=== PATIENT | male | born 1965 | race Caucasian/White ===

== ENCOUNTER 2024-01-27 17:46 | Emergency (ER) | payer BC, SELFPAY ==
[2024-01-27] VITALS (7 sets, daily range): BP systolic 127–179; BP diastolic 85–110; PULSE 78–106; RESP 16–20; TEMP 36.6–36.7; O2SAT 95–99; BMI 22.5
--- NOTE | 2024-01-27 17:51 | CT_ITS ---
PROCEDURE INFORMATION: Exam: CT Neck With Contrast Exam date and time: 01/27/2024 7:06 PM Age: 58 years old Clinical indication: Other: Tongue swelling; Additional info: New tongue swelling/subungual swelling TECHNIQUE: Imaging protocol: Computed tomography of the neck with contrast. Radiation optimization: All CT scans at this facility use at least one of these dose optimization techniques: automated exposure control; mA and/or kV adjustment per patient size (includes targeted exams where dose is matched to clinical indication); or iterative reconstruction. Contrast material: ISOVUE; Contrast volume: 75 ml; Contrast route: IV; COMPARISON: No relevant prior studies available. FINDINGS: Paranasal sinuses: No air-fluid levels. Salivary glands: Unremarkable. Pharynx: Partially imaged oropharynx demonstrates post-surgical changes compatible with partial tongue resection and autologous fat graft replacement. No evidence of soft tissue hematoma or focal fluid collection in the partially visualized surgical bed. Prevertebral and retropharyngeal spaces: Unremarkable. Larynx: Unremarkable. Thyroid: Unremarkable. Trachea: Tracheostomy speaking valve device in place and appears appropriately positioned. Lower trachea is widely patent and upper trachea is surgically absent. Lungs: No emergent findings or suspicious mass/lesions in the visulized upper thorax. Lymph nodes: Post-operative changes the neck extensive cervical lymph node dissection. No pathologically enlarged lymph nodes by imaging criteria. Bones/joints: No evidence of acute osseous abnormality. 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 Soft tissues: Focal soft tissue defect in the submental subcutaneous fat and platysma muscle with full-thickness open wound approaching the anterior belly of the digastric muscles. No evidence of significant surrounding soft tissue edema. No hematoma or focal fluid collection. No interstitial subcutaneous emphysema to suggest necrotizing soft tissue infection. IMPRESSION: 1. Partially imaged oropharynx demonstrates post-surgical changes compatible with partial tongue resection and autologous fat graft replacement. No evidence of soft tissue hematoma or focal fluid collection in the partially visualized surgical bed. 2. Focal soft tissue defect in the submental subcutaneous fat and platysma muscle with full-thickness open wound approaching the anterior belly of the digastric muscles. No evidence of hematoma, soft tissue abscess or necrotizing soft tissue infection. 3. Additional non-acute ancillary findings are detailed above.
--- NOTE | 2024-01-27 17:53 | CT_ITS ---
PROCEDURE INFORMATION: Exam: CTA Chest With Contrast Exam date and time: 01/27/2024 7:09 PM Age: 58 years old Clinical indication: Pain; Other: Cp; Additional info: Chest pain, h/o laryngeal cancer TECHNIQUE: Imaging protocol: Computed tomographic angiography of the chest with contrast. Exam focused on the arteries. 3D rendering (Not supervised by radiologist): MIP and/or 3D reconstructed images were created by the technologist. Radiation optimization: All CT scans at this facility use at least one of these dose optimization techniques: automated exposure control; mA and/or kV adjustment per patient size (includes targeted exams where dose is matched to clinical indication); or iterative reconstruction. Contrast material: ISOVUE 370; Contrast volume: 70 ml; Contrast route: INTRAVENOUS (IV); COMPARISON: CT SOFT TISSUE NECK W CON 01/27/2024 7:06 PM FINDINGS: Pulmonary arteries: Normal. No pulmonary emboli. Aorta: Minimal thoracic aortic atherosclerotic disease without aneurysm or dissection. Lungs: Mild/moderate centrilobular emphysema. Multiple bilateral calcified granulomas. Mild bronchial wall thickening with mild mucoid debris in the right mainstem bronchus. Pleural spaces: Unremarkable. No pneumothorax. No pleural effusion. Heart: Unremarkable. No cardiomegaly. No pericardial effusion. Lymph nodes: Unremarkable. No enlarged lymph nodes. Diaphragm: Tiny hiatal hernia. Liver: Hepatic steatosis. Gallbladder and biliary ducts: Mildly dilated common bile duct measuring up to 1.4 cm in diameter. Pancreas: Linear calcification along the posterior margin of the pancreatic tail could be the sequela of prior pancreatitis. Kidneys: 1.0 cm cyst in the upper pole of the left kidney. Bones/joints: Mild thoracic spine dextroscoliosis with mild multilevel degenerative disc disease. Soft tissues: Unremarkable. IMPRESSION: 1. No evidence of a pulmonary embolism. 2. Mild bronchial wall thickening and mild mucoid debris in the right mainstem bronchus is likely due to bronchitis. 3. Multiple pulmonary calcified granulomas. 4. Mild/moderate emphysema. 5. Mildly dilated common bile duct measuring up to 1.4 cm in diameter. Correlate with bilirubin levels and consider follow-up nonemergent MRCP. COMMENTS: 1. Consistent with the [employer]'s Incidental Findings Committee white paper (J Am Wanda Radiol 2018): Any incidental renal lesion less than 1 cm or classified as too small to characterize, or any incidental cystic renal lesion characterized as simple-appearing, is likely benign. No follow-up imaging is recommended for these lesions per consensus recommendations based on imaging criteria. 2. The presence of pulmonary emphysema on CT is an independent risk factor for lung cancer. In the absence of a history or active diagnosis of lung cancer, it is recommended that this patient with emphysema be evaluated for enrollment in a low dose CT lung cancer screening program.
--- NOTE | 2024-01-27 17:56 | ED_ITS ---
Discharge Plan Disposition Patient Disposition: Xfer Short-Term Hosp Condition: Good Prescriptions Prescriptions: No Action levothyroxine 137 mcg tablet 137 mcg PO AM clonazepam 0.5 mg tablet 0.5 mg PO BID Referrals Follow up/Referrals: Tyler Hernandez APRN [Primary Care Provider] - See instructions Clinical Impressions Clinical Impression: Tongue swelling, Acute oral pain, Hyponatremia, Need for durable feeding access, Bronchitis Print Language Print Language: [place] Discharge ED Provider: Ирина Maravilla General Adult HPI General Chief complaint: Recheck/Abnormal Lab/Rx Stated complaint: swollen tounge Time Seen by Provider: 01/27/24 17:46 Mode of Arrival: EMS Source of Information: Patient Limitations: No Limitations Description of Symptoms (Recalled from ER Triage Doc. by RN): Patient with history of tongue cancer and approx 7 days ago his tongue began to swell and he noticed a swollen lump on the right side of his jaw. 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 Of note, the patient had segmental neck dissection 12/31/2023 with ENT at which demonstrated metastatic node. He notes that since then, he had been doing okay up until around a week ago when he had increasing pain and swelling of his neck, right jaw, right tongue. He has not been able to eat or drink for several days secondary to the pain and swelling. He also notes he is having a little bit of chest pain and shortness of breath. No other concerns noted. He is not currently on chemo or radiation. Related Data Home Medications ?Medication ?Instructions ?Recorded ?Confirmed clonazepam 0.5 mg tablet 0.5 mg PO BID 01/27/24 01/27/24 levothyroxine 137 mcg tablet 137 mcg PO AM 01/27/24 01/27/24 Allergies Allergy/AdvReac Type Severity Reaction Status Date / Time gabapentin Allergy Unknown Verified 01/27/24 17:51 allergy reaction tramadol Allergy Unknown Verified 01/27/24 17:51 allergy reaction PFSH PFSH Disclaimer: The information contained in this section may have been updated after the patient was seen, as this information can be updated by other users. Social History (Updated 01/27/24 @ 19:35 by Chema Guzman RN) Smoking Status: Former smoker alcohol intake: former current occupational status: disabled ROS Obtained: Yes All systems reviewed & no additional complaints except as documented Physical Exam General General appearance: alert and in no apparent distress Head Head exam: atraumatic and normocephalic Eye Eye exam: Present normal appearance, PERRL and EOMI ENT ENT exam: Present mucous membranes moist, normal external ear exam and other (Postoperative changes of the oral cavity as well as significant swelling of the right side of the tongue, subungual region, and inflammation of right submandibular nodes. No drooling, trismus, or stridor.) Neck Neck exam: Present full ROM, trachea midline and other (Submental wound without surrounding erythema or warmth. No purulence. Tracheostomy in place); Absent tenderness Expanded Neck Exam Neck image: 2 1. Chest Chest inspection: Present normal inspection and symmetric chest wall rise; Absent tenderness Respiratory Respiratory exam: Present normal lung sounds bilaterally; Absent respiratory distress, wheezes, stridor or accessory muscle use Cardiovascular Cardiovascular exam: Present regular rate and normal rhythm Abdominal Exam Abdominal exam: Present soft; Absent distention, tenderness or guarding Extremities Exam Extremities exam: Present normal inspection, full ROM and normal capillary refill; Absent tenderness or edema Back Exam Back exam: Present normal inspection and full ROM; Absent tenderness Neurological Exam Neurological exam: Present alert, oriented X3, CN II-XII intact and normal gait; Absent motor sensory deficit Psychiatric Psychiatric exam: Present normal affect and normal mood Skin Skin exam: Present warm and dry Medical Decision Making Medical Records Medical records reviewed: Yes I reviewed the patient's medical records. Screening: Per USPSTF and CDC recommendations, given the prevalence of disease in our region, it is our hospital?s policy to screen for HIV and viral Hepatitis for all patients aged 18 and over and those with ongoing risk factors. Ezra Inquiry Pt receiving controlled substance: No Vital Signs: 01/27/24 17:46 01/27/24 18:00 01/27/24 18:51 Temperature 98.1 F Temperature Source Oral Pulse Rate 96 H Pulse Rate [Radial] 106 H Respiratory Rate 16 Blood Pressure 179/110 H Blood Pressure [Right Arm] 158/102 H Blood Pressure Mean 127 Blood Pressure Mean [Right Arm] 120 Blood Pressure Source [Right Arm] Automatic Cuff Blood Pressure Position [Right Arm] Sitting 02 Sat by Pulse Oximetry 96 95 95 Oxygen Delivery Method Room Air Room Air Room Air 01/27/24 19:31 01/27/24 20:00 01/27/24 20:38 Temperature 98 F Temperature Source Temporal Artery Scan Pulse Rate 104 H 88 95 H Pulse Rate [Radial] Respiratory Rate 18 16 18 Blood Pressure 127/85 135/86 139/89 Blood Pressure [Right Arm] Blood Pressure Mean 104 109 102 Blood Pressure Mean [Right Arm] Blood Pressure Source [Right Arm] Blood Pressure Position [Right Arm] 02 Sat by Pulse Oximetry 99 97 97 Oxygen Delivery Method Room Air Room Air Room Air Lab Data Lab results reviewed: Yes I reviewed the patient's lab results. Lab Results 01/27/24 18:11: WBC 7.7, RBC 4.38 L, Hgb 12.9 L, Hct 39.2 L, MCV 89.4, MCH 29.5, MCHC 33.0, RDW 16.8, Plt Count 307, MPV 8.4, Neut % (Auto) 74.3, Lymph % (Auto) 14.4, [place] % (Auto) 9.6 H, Eos % (Auto) 0.7, Baso % (Auto) 1.0, Neut # (Auto) 5.7, Lymph # (Auto) 1.1, [place] # (Auto) 0.7, Eos # (Auto) 0.1, Baso # (Auto) 0.1, ESR 22 H, Sodium 130 L, Potassium 3.9, Chloride 93 L, Carbon Dioxide 31 H, Anion Gap 9.9, BUN < 2 L, Creatinine 0.60 L, Estimated Creat Clear 159, Estimated GFR 139, Est GFR ( Amer) 169, Glucose 122 H, Lactate 2.0, Calcium 8.9, Total Bilirubin 0.8, AST 106 H, ALT 37, Alkaline Phosphatase 200 H, Troponin I < 0.01, C-Reactive Protein 0.6, Total Protein 8.2, Albumin 4.1, Globulin 4.1 H, A lbumin/Globulin Ratio 1.0 L, Procalcitonin 0.067 01/27/24 20:54: Troponin I < 0.01 01/27/24 18:11 01/27/24 18:11 Orders (Tests/Meds): ED MEDICATIONS Generic Name Dose Route Start Last Admin Trade Name Jose PRN Reason Stop Dose Admin Sodium Chloride 10 ml 01/27/24 19:30 Sodium Chloride 0.9% 10ml Flush Syringe IV 01/28/24 07:30 NEEDED PRN Maintain IV Site Discontinued Medications Generic Name Dose Route Start Last Admin Trade Name Freamanuel PRN Reason Stop Dose Admin Sodium Chloride 1,000 mls @ 999 mls/hr 01/27/24 19:30 01/27/24 19:31 Sod Chlor 0.9% 1000ml Bag IV 01/27/24 20:30 999 mls/hr .Q1H1M ONE Administration Iopamidol 155 ml 01/27/24 19:23 01/27/24 19:23 Iopamidol-370 (76%);100ml Bottle IV 01/27/24 19:24 155 ml ONCE ONE Administration Sodium Chloride 10 ml 01/27/24 19:23 01/27/24 19:23 Sodium Chloride 0.9% 10ml Syr (Rad Only) IV 01/27/24 19:24 10 ml ONCE ONE Administration Sodium Chloride 50 ml 01/27/24 19:23 01/27/24 19:23 0.9 % Sodium Chloride 50 Ml Vial IV 01/27/24 19:24 50 ml ONCE ONE Administration ORDERS Category Date Time Status CT angio chest PE protocol Stat Cat Scan 01/27/24 17:[address] soft tissue neck w con Stat Cat Scan 01/27/24 17:51 Completed CRP [C-Reactive Protein] Stat Lab 01/27/24 18:11 Completed Complete Blood Count Auto Diff Stat Lab 01/27/24 18:11 Completed Comprehensive Metabolic Panel Stat Lab 01/27/24 18:11 Completed ESR [Erythrocyte Sedimentation Rate] Stat Lab 01/27/24 18:11 Completed Lactic Acid Stat Lab 01/27/24 18:11 Completed Procalcitonin Stat Lab 01/27/24 18:11 Completed Trop I [Troponin I] Stat Lab 01/27/24 18:11 Completed Troponin I Q3H Lab 01/27/24 20:54 Completed Troponin I Q3H Lab 01/28/24 00:00 Ordered Blood Culture Stat Micro 01/27/24 18:11 Received ECG Data Tracing #1: I reviewed this ECG and interpreted as documented below: Normal sinus rhythm with a ventricular rate of 89 bpm. Motion artifact degrades study. No acute ST changes concerning for ischemia noted ECG initial impression date: 01/27/24 ECG initial impression time: 18:05 Medical Decision Narrative: In summary, this patient is a 58-year-old male presenting to the Emergency Department for evaluation of increasing swelling and pain status post recent resection of lymph nodes of the right neck 12/31/2023. He has been unable to eat. Differential diagnoses considered include but are not limited to postoperative infection, cellulitis, abscess, worsening malignancy, airway compromise. Ruling out the most morbid conditions drove assessment. It should be noted patient's history includes squamous cell carcinoma of the oral cavity as well as laryngeal cancer status post total laryngectomy which is likely not at goal therapy. This complicates all aspects of care by increasing patient's risk for morbidity. I reviewed patient's past medical records and noted previous surgery endeavors at as noted in HPI. On exam, the patient is sitting upright in no acute distress. He has a submental wound without obvious purulence or surrounding erythema. He has no drooling, stridor, trismus. He does have a trach in place. He does have swelling of his right tongue and oral cavity. workup included lab evaluation to evaluate for infectious etiology as well as CT soft tissue neck and CT PE protocol. I also ordered Trope and EKG given his complaints of chest pain. Blood cultures were sent and are pending.. I independently interpreted CT scan prior to the radiologist read and noted wound to chin. No PE noted. Please see their read for final interpretation. They did not note any acute concerns for abscess or infection of the neck or oral cavity, but they did note that he has concerning findings for bronchitis. he has had increased mucus production. Labs were obtained that demonstrated hyponatremia. Bolus of IV fluids was ordered. He also has he started throughout the upper limits of normal but negative CRP, procalcitonin, no significant leukocytosis. Cultures were sent and are pending just to be on the safe side.. On reassessment, the patient remains resting comfortably in no acute distress. Vitals are reassuring on cardiac telemetry. I had interactive discussion with Dr. Murphy with ENT at who advised that he would recommend transfer there for evaluation of the wound as well as for evaluation of feeding difficulty, as the patient may need feeding tube placed potentially. Dr. Sweeney was in the transfer center call. They accepted the patient for transfer to [facility] ED for further evaluation and management. EMS transport was arranged, and the patient was transported in stable condition. Critical Care Critical Care Time Critical Care Time: No
--- NOTE | 2024-01-27 18:04 | ECG_ITS ---
APPROVED REPORT Exam: Resting ECG HR:89 bpm ECG Measurements Heart Rate 89 AXES RI 157 P 29 QRSd 100 QRS 53 QT 391 T 50 QTc 438 Conclusion SINUS RHYTHM NORMAL ECG Some motion artifact Electronically signed by : HECTOR OVIEDO, 01/27/2024 22:57:42
[2024-01-27 18:27] LABS: Basophils # 0.1 K/mm3 (0-0.2); Eosinophils # 0.1 K/mm3 (0.0-0.4); Eosinophils % 0.7 % (0.1-12.0); Hematocrit 39.2 % (42.0-52.0); Hemoglobin 12.9 g/dL (14.1-18.0); Lymphocytes # 1.1 K/mm3 (0.7-4.5); Lymphocytes % 14.4 % (10-50); Mean Corpuscular Hemoglobin 29.5 pg (27.0-31.2); Mean Corpuscular Volume 89.4 fl (80-94); Mean Platelet Volume 8.4 fl (7.4-10.4); Monocytes # 0.7 K/mm3 (0.1-1.0); Monocytes % 9.6 % (1.7-9.3); Neutrophils # 5.7 K/mm3 (1.8-7.8); Neutrophils % 74.3 % (37.0-80.0); Platelet Count 307 K/mm3 (142-424); Red Blood Count 4.38 M/mm3 (4.60-6.20); Red Cell Distribution Width 16.8 % (11.5-17.5); White Blood Count 7.7 K/mm3 (4.8-10.8)
[2024-01-27 18:32] LABS: Chloride 93 mmol/L (98-107)
[2024-01-27 18:33] LABS: Albumin Level 4.1 g/dl (3.5-5.0); Potassium 3.9 mmoL/L (3.5-5.1); Sodium 130 mmol/L (136-145)
[2024-01-27 18:35] LABS: Creatinine Clearance Estimated 159 mL/min (50-200); Estimated Glomerular Filt Rate 139 ml/min (>60); GFR (African American) 169 ML/MIN (>60)
[2024-01-27 18:36] LABS: Alanine Aminotransferase 37 U/L (12-78); Alkaline Phosphatase 200 U/L (38-126); Anion Gap 9.9 mEq/L (5-15); Aspartate Amino Transferase 106 U/L (17-59); Bilirubin,Total 0.8 mg/dl (0.2-1.3); Calcium 8.9 mg/dl (8.4-10.2); Carbon Dioxide 31 mmol/L (22.0-30.0); Globulin 4.1 g/dL (1.3-3.2); Glucose 122 mg/dl (74-100); Total Protein,Serum 8.2 g/dl (6.3-8.2)
[2024-01-27 18:41] LABS: C-Reactive Protein 0.6 mg/L (0-4)
[2024-01-27 18:44] LABS: Blood Urea Nitrogen < 2 mg/dl (9-20)
[2024-01-27 18:52] LABS: Troponin I < 0.01 ng/ml (0.00-0.034)
[2024-01-27 19:03] LABS: Erythrocyte Sedimentation Rate 22 mm/hr (0-20)
--- NOTE | 2024-01-27 19:16 | PC.NURSE ---
Patient currently in CT. Notified communication electronic technician to power share to [facility] and burn a disc once scans completed.
[2024-01-27] MEDS: 0.9 % SODIUM CHLORIDE 50 ML VIAL IV (19:23)
[2024-01-27] MEDS: SODIUM CHLORIDE 0.9% 10ML SYR (RAD ONLY) 10 ML IV (19:23)
[2024-01-27] MEDS: IOPAMIDOL-370 (76%);100ML BOTTLE 155 ML IV (19:23)
--- NOTE | 2024-01-27 19:25 | PC.NURSE ---
rounded on patient, patient requesting IV fluids, nurse informed
[2024-01-27] MEDS: 0.9 % SODIUM CHLORIDE 1000ML 1,000 ML 999 ML IV (19:31)
[2024-01-27 19:47] LABS: Procalcitonin 0.067 ng/mL (0.0-2.0)
--- NOTE | 2024-01-27 20:44 | PC.NURSE ---
Patient ambulated to restroom without assistance. Resting back in bed, given water, VSS and NAD. Awaiting CT scans
--- NOTE | 2024-01-27 20:56 | PC.NURSE ---
2nd trop sent
--- NOTE | 2024-01-27 20:57 | PC.NURSE ---
on phone with [facility] MD's re transfer to their facility, awaiting return call at this time. updated
[2024-01-27 21:26] LABS: Troponin I < 0.01 ng/ml (0.00-0.034)
--- NOTE | 2024-01-28 00:35 | PC.NURSE ---
Pharmacy called to ask if pt received antibiotics while at [facility]
== END 2024-01-27 22:24 | disposition short-term general hospital (02) ==
PROVIDERS: Emergency Provider Emergency Medicine; PCP Nurse Practitioner Family
DX: J40 Bronchitis, not specified as acute or chronic (principal); E87.1 Hypo-osmolality and hyponatremia; K13.79 Other lesions of oral mucosa; R22.1 Localized swelling, mass and lump, neck; R68.84 Jaw pain; K14.0 Glossitis; R07.9 Chest pain, unspecified; R06.02 Shortness of breath
CPT/HCPCS: 70491; 71275; 80053; 83605; 84145; 84484; 85025; 85651; 86140; 87040; 93005; 96360; 99285; J7030; Q9967

== ENCOUNTER 2024-05-10 11:13 | Outpatient (POV) | payer MEDICAID, SELFPAY ==
[2024-05-10 11:22] VITALS: BP 136/81; PULSE 102; RESP 18; O2SAT 100; BMI 24.5
--- NOTE | 2024-05-10 11:27 | A.OFFVIS_ITS ---
HPI Data of Consult Patient: new to practice Consult date: 05/10/24 Requesting Physician: Ирина Beyer APRN Primary Care Provider: Tyler Hernandez APRN Consult Narrative History of present illness: Mr. Metz is a 58 year old male who presents today as a new patient. He is a referral from [facility]. Today he rates his pain an 8 out of 10. Patient states he has chronic pain through his neck and right side of his back as well as low back pain and right leg pain. Patient states this pain is going on for years and progressively worsened. He states some of the damage to his upper neck and back was related to shingles that caused severe nerve damage. 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 Patient has had continue surgery as well as radiation and chemo for this. Patient states that he goes on a regular basis for follow-up with . He states the pain is just constant and interferes with his ability to perform activities of daily living such as cooking and cleaning. Patient has a history of trach and has to speak through writing or trying to mouth words. Patient denies any prior surgery or injection history. He states he is not interested in injections. Patient states he did see a doctor in [place] and was given Lortab 10 mg 3 times daily and this really did help. Patient would like to see if we can order this medication to help provide improvement. Patient states that he was tried on gabapentin both oral and topical and could not tolerate it and that he broke out in a rash. Patient states that he also tried Lyrica with similar issues. Patient's Ezra was unavailable at today's visit. CC: Ирина Beyer APRN [facility] Disclaimer: The information contained in this section may have been updated after the p johsua was seen, as this information can be updated by other users. Social History (Updated 01/27/24 @ 21:31 by Ирина Maravilla DO) Smoking Status: Former smoker alcohol intake: former current occupational status: disabled Travel in the last 8 weeks: None Review of Systems Review of Systems Review of systems:: pertinent systems reviewed and negative unless documented below Review of systems (narrative): Review of Systems: General: No recent weight changes, no fever, no sleep disturbances Respiratory: No cough, no shortness of air, no recurring pulmonary infections Cardiovascular/peripheral vascular: No chest pain, no palpitations, no edema, no shortness of breath Gastrointestinal: No new onset incontinence, normal bowel movements reported Genitourinary: No new onset incontinence Musculoskeletal: Neck pain, right arm pain, low back pain, right leg pain, ongoing cancer treatment Psychiatric: [Normal mood/affect] Neurological: [Denies weakness in extremities], [denies balance issues] Meds Home Medications and Allergies Home Medications ?Medication ?Instructions ?Recorded ?Confirmed ?Type clonazepam 0.5 mg tablet 0.5 mg PO BID 01/27/24 01/27/24 History levothyroxine 137 mcg tablet 137 mcg PO AM 01/27/24 01/27/24 History New Prescriptions to Start Prescriptions: Allergies Allergy/AdvReac Type Severity Reaction Status Date / Time gabapentin Allergy Unknown Verified 01/27/24 17:51 allergy reaction tramadol Allergy Unknown Verified 01/27/24 17:51 allergy reaction Objective Narrative: Physical Exam: General: Alert and oriented x3, no acute distress, pleasant and cooperative Lungs: Respirations even and unlabored, symmetrical chest expansion Eyes: PERRL Musculoskeletal: Flexion and extension of cervical [spine] somewhat guarded secondary to pain, [antalgic gait noted] Neurological: Speech clear, no gross sensory deficit Assessment and Plan *Assessment and plan (1) Cancer: Status: Acute Category: Medical Code(s): C80.1 - Malignant (primary) neoplasm, unspecified (2) Neck pain: Status: Acute Category: Medical Code(s): M54.2 - Cervicalgia (3) Cervical radiculopathy: Status: Acute Category: Medical Code(s): M54.12 - Radiculopathy, cervical region (4) Low back pain: Status: Acute Category: Medical Code(s): M54.50 - Low back pain, unspecified (5) Lumbar radiculopathy: Status: Acute Category: Medical Code(s): M54.16 - Radiculopathy, lumbar region Plan We did get copies from his [place] healthcare provider that did show significant history of squamous cell carcinoma of the [place] that did require a total laryngectomy, thyroidectomy and bilateral neck dissection in 2016. He did go through radiation in 2018 patient then had additional carcinoma found along the right side of his mouth and had additional surgery in 2022. The biopsy from 2022 was diagnosed as invasive, moderately differentiated squamous cell carcinoma.. Patient ended up having additional surgery in February 2023 with a free flap reconstruction and additional surgical intervention in December 2023 for submental dissection with metastatic lesions. I did discuss with the patient due to his extensive cancer history that I do not have any issues with sending in pain medication. He was counseled that he would have to see our office monthly and he denies any issues with this. We will continue to follow- up as he sees for the ongoing treatment of his cancer. Patient will be given a 1 month supply of [place] 10 mg 3 times daily. Patient will return to clinic in 1 month. Risks and benefits of the medication have been explained in detail to the patient. The patient does understand the risk of dependence on the medication when given over a prolonged period. Patient has been advised of risks of oversedation with the prescribed medication. Narcan has been offered to the paitent in the event of oversedation. Patient has been advised that a family member should also be educated regarding administration of Narcan. The patient has been advised to consult with his/her primary care provider and pharmacist regarding drug-drug interaction of medications currently prescribed. Patient has been prescribed a controlled substance after being counseled on the medication, medication safety, and possible side effects. Opioid contract was reviewed and signed by the patient, and that they have agreed to all of the terms set forth by our compliance program. A UDS is needed to verify patient's compliance with our office pain contract. This is ordered based off specific treatments related to chronic pain with the potential to abuse certain medications. Patient has been instructed to contact the clinic with any concerns before the next appointment. Dr. Mccrary has reviewed this note and agrees with this plan of care. This note was dictated using voice recognition software and make contain errors or omissions.
== END 2024-05-10 23:59 | disposition home or self-care (01) ==
PROVIDERS: PCP Nurse Practitioner Family; Visit Provider Nurse Practitioner Family
DX: C80.1 Malignant (primary) neoplasm, unspecified (principal); M54.2 Cervicalgia; M54.12 Radiculopathy, cervical region; M54.50 Low back pain, unspecified; M54.16 Radiculopathy, lumbar region; Z73.89 Other problems related to life management difficulty; Z87.891 Personal history of nicotine dependence
CPT/HCPCS: 99202; G0463

== ENCOUNTER 2024-06-07 13:13 | Outpatient (POV) | payer MEDICAID, SELFPAY ==
--- NOTE | 2024-06-07 13:51 | EXP.PAIN.SOA ---
[facility] Disclaimer: The information contained in this section may have been updated after the patient was seen, as this information can be updated by other users. Medical History (Updated 05/10/24 @ 13:29 by Judith Bautista RN) Anxiety Alcoholism Hypothyroidism Larynx cancer Surgical History (Updated 05/10/24 @ 13:29 by Judith Bautista RN) H/O abdominal surgery H/O thyroidectomy H/O laryngectomy Family History (Updated 05/10/24 @ 13:29 by Judith Bautista RN) Sister Breast cancer Social History (Updated 05/10/24 @ 13:46 by Judith Bautista RN) Smoking Status: Former smoker alcohol intake: former current occupational status: disabled Travel in the last 8 weeks: None PM Subjective & Objective Subjective Subjective:: Patient is a pleasant 59-year-old male who presents today for medication refill and follow-up. Today he rates his pain a 5 out of 10. Patient denies any new changes from her last visit. Patient does continue to have chronic neck pain related to his cancer. Patient is having a lot of tasks done here lately and does present today with elevated pulse. Patient is currently managed with our office of [place] 10 mg 3 times a day. His Ezra is currently unavailable. Review of Systems: General: No recent weight changes, no fever, no sleep disturbances Respiratory: No cough, no shortness of air, no recurring pulmonary infections Cardiovascular/peripheral vascular: No chest pain, no palpitations, no edema, no shortness of breath Gastrointestinal: No new onset incontinence, normal bowel movements reported Genitourinary: No new onset incontinence Musculoskeletal: Neck pain Psychiatric: [Normal mood/affect] Neurological: [Denies weakness in extremities], [denies balance issues] Pain at rest (0-10 scale): 5 Objective Objective:: Physical Exam: General: Alert and oriented x3, no acute distress, pleasant and cooperative Lungs: Respirations even and unlabored, symmetrical chest expansion Eyes: PERRL Musculoskeletal: Flexion and extension of cervical [spine] somewhat guarded secondary to pain, [antalgic gait noted] Neurological: Speech clear, no gross sensory deficit Has patient had previous pain injection?: No Conservative treatment options previously tried: Home exercise plan Length of treatment: Longer than 12-week Meds Home Medications and Allergies Home Medications ?Medication ?Instructions ?Recorded ?Confirmed ?Type clonazepam 0.5 mg tablet 0.5 mg PO BID 01/27/24 05/10/24 History levothyroxine 137 mcg tablet 137 mcg PO AM 01/27/24 05/10/24 History hydrocodone 10 mg-acetaminophen 1 tab PO TID #90 tabs 06/07/24 Rx 325 mg tablet New Prescriptions to Start Prescriptions: hydrocodone-acetaminophen Ирина Beyer Allergies Allergy/AdvReac Type Severity Reaction Status Date / Time gabapentin Allergy Unknown Verified 01/27/24 17:51 allergy reaction tramadol Allergy Unknown Verified 01/27/24 17:51 allergy reaction Assessment and Plan *Assessment and plan (1) Lumbar radiculopathy: Status: Acute Category: Medical Code(s): M54.16 - Radiculopathy, lumbar region (2) Cervical radiculopathy: Status: Acute Category: Medical Code(s): M54.12 - Radiculopathy, cervical region (3) Neck pain: Status: Acute Category: Medical Code(s): M54.2 - Cervicalgia (4) Cancer: Status: Acute Category: Medical Code(s): C80.1 - Malignant (primary) neoplasm, unspecified Plan I will refill the patient's [place] and provide a 1 month supply of this medication. Patient will return to clinic in 1 month for medication follow-up. Patient did request today that his pharmacy be changed to the [facility]. Risks and benefits of the medication have been explained in detail to the patient. The patient does understand the risk of dependence on the medication when given over a prolonged period. Patient has been advised of risks of oversedation with the prescribed medication. Narcan has been offered to the paitent in the event of oversedation. Patient has been advised that a family member should also be educated regarding administration of Narcan. The patient has been advised to consult with his/her primary care provider and pharmacist regarding drug-drug interaction of medications currently prescribed. Patient has been prescribed a controlled substance after being counseled on the medication, medication safety, and possible side effects. Opioid contract was reviewed and signed by the patient, and that they have agreed to all of the terms set forth by our compliance program. A UDS is needed to verify patient's compliance with our office pain contract. This is ordered based off specific treatments related to chronic pain with the potential to abuse certain medications. Patient has been instructed to contact the clinic with any concerns before the next appointment. Dr. Mccrary has reviewed this note and agrees with this plan of care. This note was dictated using voice recognition software and make contain errors or omissions.
[2024-06-07 14:54] VITALS: BP 106/66; PULSE 130; RESP 18; O2SAT 94; BMI 24.1
== END 2024-06-07 23:59 | disposition home or self-care (01) ==
PROVIDERS: PCP Nurse Practitioner Family; Visit Provider Nurse Practitioner Family
DX: M54.16 Radiculopathy, lumbar region (principal); M54.12 Radiculopathy, cervical region; M54.2 Cervicalgia; C80.1 Malignant (primary) neoplasm, unspecified
CPT/HCPCS: 99212; G0463

== ENCOUNTER 2024-06-13 13:50 | Emergency (ER) | payer MEDICAID, SELFPAY ==
--- NOTE | 2024-06-13 13:45 | XR_ITS ---
FINAL REPORT CLINICAL HISTORY: Shortness of breath, hx of cancer COMPARISON: None FINDINGS: No acute pulmonary opacity is present. There is scattered calcified granulomatous disease. There is no evidence of effusion or pneumothorax. Mediastinum is unremarkable. Surgical clips are noted in the neck base. Heart size is normal. IMPRESSION: No acute findings. Reviewed, Interpreted and Dictated by Carl Shanks MD Transcribed by Sangeetha Chaudhry Authenticated and [facility]
--- NOTE | 2024-06-13 13:46 | CT_ITS ---
FINAL REPORT CLINICAL HISTORY: Dysphagia, history of laryngeal CA COMPARISON: 01/27/2024 FINDINGS: CT NECK WITH CONTRAST TECHNIQUE: Axial CT with IV contrast administration. This study was performed with techniques to keep radiation doses as low as reasonably achievable, (ALARA). Individualized dose reduction techniques using automated exposure control or adjustment of mA and/or kV according to the patient's size were employed. FINDINGS: The patient is post laryngectomy, and there are surgical changes in the oral cavity as well with resection of the right side of the tongue. Surgical changes of bilateral cervical node dissection are present as well. There is no adenopathy or abscess identified in the soft tissues of the neck. The lung apices are unremarkable in appearance. IMPRESSION: Extensive post surgical changes in the head and neck as described above, with no acute abnormality identified. This study was performed using automated techniques to achieve radiation exposure as low as reasonably achievable Reviewed, Interpreted and Dictated by Carl Shanks MD Transcribed by Rose Oates Authenticated and [facility]
--- NOTE | 2024-06-13 13:47 | CT_ITS ---
FINAL REPORT TECHNIQUE: CT of the facial bones/sinuses was performed in the axial plane after the administration of the intravenous contrast. Multiplanar reconstructions in the sagittal and coronal planes were performed. This study was performed with techniques to keep radiation doses as low as reasonably achievable (ALARA). Individualized dose reduction techniques using automated exposure control or adjustment of mA and/or kV according to the patient's size were employed. CLINICAL HISTORY: Right-sided facial swelling, history of CA COMPARISON: None FINDINGS: CT FACIAL/SINUSES WITH CONTRAST: CT of the facial bones/sinuses was performed in this patient with right sided facial swelling. There are extensive postoperative changes in the oral cavity noted on the neck CT of the same date. The sinuses are unremarkable in appearance without evidence of mass or air-fluid levels. The parotid glands are unremarkable. There has been surgical resection of the submandibular glands. No focal abscess or inflammatory change is identified. Specifically, no facial abnormality is noted. IMPRESSION: Extensive postoperative changes, without evidence of acute abscess or inflammatory change. Reviewed, Interpreted and Dictated by Carl Shanks MD Transcribed by Rose Oates Authenticated and [facility]
[2024-06-13 13:48] VITALS: BP 112/82; PULSE 100; RESP 20; TEMP 36.9; O2SAT 99; BMI 29.5
--- NOTE | 2024-06-13 13:49 | ED_ITS ---
<Statement entered by Ирина Maravilla DO - 06/13/24 15:27> I was consulted by the VALERIE, and we discussed the complexity of the problems being addressed. I approved the treatment and management plan for this patient's care in the emergency department, thus performing a substantive portion of the medical decision making. CT scan shows extensive postsurgical changes, no obvious acute abscess. Labs reassuring. Final disposition plan pending at time of signout to oncoming provider, Dr. Kelly Maravilla DO Discharge Plan Disposition Patient Disposition: Home, Self-Care Condition: Good Prescriptions Prescriptions: No Action levothyroxine 137 mcg tablet 137 mcg PO AM clonazepam 0.5 mg tablet 0.5 mg PO BID hydrocodone-acetaminophen 10-325 mg tablet 1 tab PO TID Qty: 90 0RF Activity Restrictions/Add. Instructions Additional Instructions/Restrictions: At this time it was felt you are safe to be discharged home. If new or worsening symptoms please do not hesitate to return the emergency department. Please keep your appointment with your oncologist at [facility], you have appointments tomorrow, 06/16, 06/20. Please continue to take all medications as prescribed. Clinical Impressions Clinical Impression: Odynophagia, Acute oral pain Instructions Patient Instructions: DI for Chronic Pain -- Adult, DI for Neck Pain Print Language Print Language: Vietnamese Discharge ED Provider: Ирина Maravilla General Adult HPI <NNEKA Leung - Last Filed: 06/13/24 16:09> General Chief complaint: Neck Pain/Injury Stated complaint: knot on neck/hard to swallow Time Seen by Provider: 06/13/24 13:53 Mode of Arrival: EMS Source of Information: Patient Limitations: No Limitations History of Present Illness HPI narrative: 59-year-old male presents emergency department with 3 to 4-day history of significant right-sided facial swelling, dysphagia, shortness of air, and odynophagia. 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 Patient has been cancer free for several years, and is only recently developed symptoms, patient denies fever chills chest pain, does not have shortness of breath, denies abdominal pain nausea vomiting constipation diarrhea no urinary toxin pathology, other past medical history consistent with former tobacco use, occasional alcohol use, admits to utilizing/drinking 6 beers , last night, other past medical history consistent with hypothyroidism. 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 Of note, the patient had segmental neck dissection 12/31/2023 with ENT at which demonstrated metastatic node. Triage vitals notable for tachycardia otherwise unremarkable. Onset (ago): day(s) Related Data Home Medications ?Medication ?Instructions ?Recorded ?Confirmed clonazepam 0.5 mg tablet 0.5 mg PO BID 01/27/24 06/07/24 levothyroxine 137 mcg tablet 137 mcg PO AM 01/27/24 06/07/24 Previous Rx's ?Medication ?Instructions ?Recorded hydrocodone 10 mg-acetaminophen 1 tab PO TID #90 tabs 06/07/24 325 mg tablet Allergies Allergy/AdvReac Type Severity Reaction Status Date / Time gabapentin Allergy Unknown Verified 01/27/24 17:51 allergy reaction tramadol Allergy Unknown Verified 01/27/24 17:51 allergy reaction PENDING SALE TO [facility] <NNEKA Leung - Last Filed: 06/13/24 16:09> PENDING SALE TO [facility] Disclaimer: The information contained in this section may have been updated after the patient was seen, as this information can be updated by other users. Medical History (Updated 06/13/24 @ 16:08 by NNEKA Leung) Anxiety Alcoholism Hypothyroidism Larynx cancer Surgical History (Updated 05/10/24 @ 13:29 by Judith Bautista RN) H/O abdominal surgery H/O thyroidectomy H/O laryngectomy Family History (Updated 05/10/24 @ 13:29 by Judith Bautista RN) Sister Breast cancer Social History (Updated 05/10/24 @ 13:46 by Judith Bautista RN) Smoking Status: Former smoker alcohol intake: former current occupational status: disabled Travel in the last 8 weeks: None Have you lived/traveled outside [place] in past 30 days?: No Contact w/someone who lives/traveled outside US past 30 days?: No Exposure to someone with infectious disease in past 14 days?: No Do you have a fever (greater than 100.4 F or 38 C)?: No Have you tested positive for COVID-19: No Exposed to someone with COVID-19 in past 14 days?: No Do you have a sore throat?: No Do you have a cough?: No Do you have any weakness?: No Do you have any diarrhea?: No Are you experiencing any unusual bleeding?: No Do you have any muscle aches/pain?: No Do you have any abdominal pain?: No Are you experiencing loss of taste or smell?: No Other Medical History Have you received the Flu Vaccine for this season: Yes Have you received the Pneumonia Vaccine: Yes <NNEKA Leung - Last Filed: 06/13/24 16:09> ROS Obtained: Yes All systems reviewed & no additional complaints except as documented Physical Exam <NNEKA Leung - Last Filed: 06/13/24 16:09> General General appearance: alert and in no apparent distress Head Head exam: atraumatic and normocephalic Eye Eye exam: Present PERRL and EOMI ENT ENT exam: Present mucous membranes moist and other (Tongue is somewhat deviated, but uvula is midline, could be from prior radiation/surgical/cancer of the mouth/throat. Patient is tolerating secretions, no drooling, no trismus); Absent normal oropharynx Neck Neck exam: Present trachea midline, tenderness, lymphadenopathy and other (Tracheostomy is present, intact, no drainage,); Absent normal inspection Chest Chest inspection: Present normal inspection and symmetric chest wall rise Respiratory Respiratory exam: Present normal lung sounds bilaterally; Absent respiratory distress, wheezes or stridor Cardiovascular Cardiovascular exam: Present regular rate and normal rhythm; Absent tachycardia Abdominal Exam Abdominal exam: Present soft; Absent tenderness, guarding or rebound Extremities Exam Extremities exam: Present normal inspection Neurological Exam Neurological exam: Present alert and oriented X3 Psychiatric Psychiatric exam: Present normal affect Skin Skin exam: Present warm and dry Medical Decision Making <NNEKA Leung - Last Filed: 06/13/24 16:09> Medical Records Medical records reviewed: Yes I reviewed the patient's medical records. Screening: Per USPSTF and CDC recommendations, given the prevalence of disease in our region, it is our hospital?s policy to screen for HIV and viral Hepatitis for all patients aged 18 and over and those with ongoing risk factors. Ezra Inquiry Pt receiving controlled substance: No Ezra was queried for this patient: No Vital Signs: 06/13/24 13:48 06/13/24 14:00 06/13/24 14:52 Temperature 98.5 F Temperature Source Oral Pulse Rate 74 89 Pulse Rate [Left] 100 H Respiratory Rate 20 18 Blood Pressure 119/80 131/87 Blood Pressure [Right Arm] 112/82 Blood Pressure Mean [Right Arm] 92 02 Sat by Pulse Oximetry 99 93 L 95 Oxygen Delivery Method Room Air Room Air 06/13/24 15:30 06/13/24 17:05 Temperature 98.9 F Temperature Source Pulse Rate 87 82 Pulse Rate [Left] Respiratory Rate 13 18 Blood Pressure 105/69 L 148/85 H Blood Pressure [Right Arm] Blood Pressure Mean [Right Arm] 02 Sat by Pulse Oximetry 94 L Oxygen Delivery Method Room Air Room Air Lab Data Lab Results 06/13/24 13:48: WBC 7.6, RBC 4.66, Hgb 12.7 L, Hct 38.0 L, MCV 81.5, MCH 27.3, MCHC 33.4, RDW 17.6 H, Plt Count 496 H, MPV 10.2, Neut % (Auto) 39.8, Lymph % (Auto) 41.7, Lucas % (Auto) 13.5 H, Eos % (Auto) 2.9, Baso % (Auto) 1.6, Neut # (Auto) 3.0, Lymph # (Auto) 3.2, Lucas # (Auto) 1.0, Eos # (Auto) 0.2, Baso # (Auto) 0.1, Sodium 138, Potassium 4.8, Chloride 101, Carbon Dioxide 27, Anion Gap 14.8, BUN 7 L, Creatinine 0.60 L, Estimated Creat Clear 180, Estimated GFR 139, Est GFR ( Amer) 168, Glucose 120 H, Calcium 8.5, Magnesium 1.5 L, Total Bilirubin 0.4, AST 47, ALT 29, Alkaline Phosphatase 64, Total Protein 7.5, Albumin 4.1, Globulin 3.4 H, Albumin/Globulin Ratio 1.2 06/13/24 13:48 06/13/24 13:48 Orders (Tests/Meds): ED MEDICATIONS Discontinued Medications Generic Name Dose Route Start Last Admin Trade Name Jose PRN Reason Stop Dose Admin Hydromorphone HCl 0.5 mg 06/13/24 15:04 06/13/24 15:08 Hydromorphone 2mg/Ml Syringe IV 06/13/24 15:05 0.5 mg ONCE ONE Administration Hydromorphone HCl 0.5 mg 06/13/24 16:02 Hydromorphone 2mg/Ml Syringe IV 06/13/24 16:03 ONCE ONE Iopamidol 75 ml 06/13/24 14:44 06/13/24 14:44 Iopamidol-370 (76%);100ml Bottle IV 06/13/24 14:45 75 ml ONCE ONE Administration Morphine Sulfate 4 mg 06/13/24 14:01 06/13/24 14:06 Morphine 4mg/Ml Syringe IV 06/13/24 14:02 4 mg ONCE ONE Administration Ondansetron HCl 4 mg 06/13/24 14:04 06/13/24 14:06 Ondansetron 4mg/2ml Vial IV 06/13/24 14:05 4 mg ONCE ONE Administration Sodium Chloride 10 ml 06/13/24 14:44 06/13/24 14:44 Sodium Chloride 0.9% 10ml Syr (Rad Only) IV 06/13/24 14:45 10 ml ONCE ONE Administration ORDERS Category Date Time Status CT facial bones w con Stat Cat Scan 06/13/24 13:[address] soft tissue neck w con Stat Cat Scan 06/13/24 13:46 Completed XR chest portable Stat Exams 06/13/24 13:45 Completed Complete Blood Count Auto Diff Stat Lab 06/13/24 13:48 Completed Comprehensive Metabolic Panel Stat Lab 06/13/24 13:48 Completed Magnesium Stat Lab 06/13/24 13:48 Completed Medical Decision Narrative: 89-year-old male presents emerged department with dysphagia odynophagia, dyspnea history of significant head and neck/ENT cancer. Differential diagnose include but not limited to malignancy, Alec's angina, retropharyngeal abscess, esophagitis, pneumonia, COPD exacerbation, foreign body airway obstruction, among others. Discussed patient case with attending physician Dr. Maravilla Will obtain basic laboratory studies, magnesium level, chest x-ray, EKG, CT facial bones with contrast, CT soft tissue neck with contrast to further evaluate/characterization, patient is complaining of some pain, will give 4 mg IV morphine for pain, 4 mg IV Zofran for nausea. Reviewed and independently interpreted the patient's EKG at approximately 1400, NSR at 95 beats minute, MO interval does, QT interval within normal limits there is no STEMI. CMP unremarkable CBC unremarkable Patient is still complaining of some pain, will give 0.5 mg IV Dilaudid. I reviewed and independently interpreted the patient's CT neck with contrast on the corresponding radiologic report, extensive postsurgical changes in the head and neck described above, no acute abnormality identified, this study is performed using automated techniques to achieve radiation exposure as low as reasonably achievable. I reviewed and independently interpreted the patient's chest x-ray along the corresponding radiologic report, no acute findings. Reviewed and independently interpreted the patient's CT face/sinuses with contrast along with the corresponding radiologic report, extensive postoperative changes without evidence of acute abscess or inflammatory change. Patient still complaining of some pain, will give additional dose of IV Dilaudid 0.5 mg. Patient has slated follow-up with his oncologist on 06/20/2024, this was confirmed by calling [facility], he also had a swallow study on 06/16, and a what sounds like PET scan/CT scan scheduled for tomorrow, patient has adequate at home p.o. analgesia 10 mg [place] that he takes up to 3 times daily. I encouraged him to keep these appointments and continue to take all of his medication as prescribed, patient voiced understanding agree with current treatment/discharge plan, patient had adequate p.o. intake here in the emergency department with p.o. liquids. ED return precaution given. Patient voiced understanding and agreed with current plan/discharge plan. <Ирина Maravilla, DO - Last Filed: 06/13/24 15:27> Vital Signs: 06/13/24 13:48 06/13/24 14:00 06/13/24 14:52 Temperature 98.5 F Temperature Source Oral Pulse Rate 74 89 Pulse Rate [Left] 100 H Respiratory Rate 20 18 Blood Pressure 119/80 131/87 Blood Pressure [Right Arm] 112/82 Blood Pressure Mean [Right Arm] 92 02 Sat by Pulse Oximetry 99 93 L 95 Oxygen Delivery Method Room Air Room Air 06/13/24 15:30 06/13/24 17:05 Temperature 98.9 F Temperature Source Pulse Rate 87 82 Pulse Rate [Left] Respiratory Rate 13 18 Blood Pressure 105/69 L 148/85 H Blood Pressure [Right Arm] Blood Pressure Mean [Right Arm] 02 Sat by Pulse Oximetry 94 L Oxygen Delivery Method Room Air Room Air Lab Data Lab Results 06/13/24 13:48: WBC 7.6, RBC 4.66, Hgb 12.7 L, Hct 38.0 L, MCV 81.5, MCH 27.3, MCHC 33.4, RDW 17.6 H, Plt Count 496 H, MPV 10.2, Neut % (Auto) 39.8, Lymph % (Auto) 41.7, Lucas % (Auto) 13.5 H, Eos % (Auto) 2.9, Baso % (Auto) 1.6, Neut # (Auto) 3.0, Lymph # (Auto) 3.2, Lucas # (Auto) 1.0, Eos # (Auto) 0.2, Baso # (Auto) 0.1, Sodium 138, Potassium 4.8, Chloride 101, Carbon Dioxide 27, Anion Gap 14.8, BUN 7 L, Creatinine 0.60 L, Estimated Creat Clear 180, Estimated GFR 139, Est GFR ( Amer) 168, Glucose 120 H, Calcium 8.5, Magnesium 1.5 L, Total Bilirubin 0.4, AST 47, ALT 29, Alkaline Phosphatase 64, Total Protein 7.5, Albumin 4.1, Globulin 3.4 H, Albumin/Globulin Ratio 1.2 Orders (Tests/Meds): ED MEDICATIONS Discontinued Medications Generic Name Dose Route Start Last Admin Trade Name Ramanaq PRN Reason Stop Dose Admin Hydromorphone HCl 0.5 mg 06/13/24 15:04 06/13/24 15:08 Hydromorphone 2mg/Ml Syringe IV 06/13/24 15:05 0.5 mg ONCE ONE Administration Hydromorphone HCl 0.5 mg 06/13/24 16:02 Hydromorphone 2mg/Ml Syringe IV 06/13/24 16:03 ONCE ONE Iopamidol 75 ml 06/13/24 14:44 06/13/24 14:44 Iopamidol-370 (76%);100ml Bottle IV 06/13/24 14:45 75 ml ONCE ONE Administration Morphine Sulfate 4 mg 06/13/24 14:01 06/13/24 14:06 Morphine 4mg/Ml Syringe IV 06/13/24 14:02 4 mg ONCE ONE Administration Ondansetron HCl 4 mg 06/13/24 14:04 06/13/24 14:06 Ondansetron 4mg/2ml Vial IV 06/13/24 14:05 4 mg ONCE ONE Administration Sodium Chloride 10 ml 06/13/24 14:44 06/13/24 14:44 Sodium Chloride 0.9% 10ml Syr (Rad Only) IV 06/13/24 14:45 10 ml ONCE ONE Administration ORDERS Category Date Time Status CT facial bones w con Stat Cat Scan 06/13/24 13:[address] soft tissue neck w con Stat Cat Scan 06/13/24 13:46 Completed XR chest portable Stat Exams 06/13/24 13:45 Completed Complete Blood Count Auto Diff Stat Lab 06/13/24 13:48 Completed Comprehensive Metabolic Panel Stat Lab 06/13/24 13:48 Completed Magnesium Stat Lab 06/13/24 13:48 Completed <Dewayne Mendoza MD - Last Filed: 06/13/24 17:15> Vital Signs: 06/13/24 13:48 06/13/24 14:00 06/13/24 14:52 Temperature 98.5 F Temperature Source Oral Pulse Rate 74 89 Pulse Rate [Left] 100 H Respiratory Rate 20 18 Blood Pressure 119/80 131/87 Blood Pressure [Right Arm] 112/82 Blood Pressure Mean [Right Arm] 92 02 Sat by Pulse Oximetry 99 93 L 95 Oxygen Delivery Method Room Air Room Air 06/13/24 15:30 06/13/24 17:05 Temperature 98.9 F Temperature Source Pulse Rate 87 82 Pulse Rate [Left] Respiratory Rate 13 18 Blood Pressure 105/69 L 148/85 H Blood Pressure [Right Arm] Blood Pressure Mean [Right Arm] 02 Sat by Pulse Oximetry 94 L Oxygen Delivery Method Room Air Room Air Lab Data Lab Results 06/13/24 13:48: WBC 7.6, RBC 4.66, Hgb 12.7 L, Hct 38.0 L, MCV 81.5, MCH 27.3, MCHC 33.4, RDW 17.6 H, Plt Count 496 H, MPV 10.2, Neut % (Auto) 39.8, Lymph % (Auto) 41.7, Lucas % (Auto) 13.5 H, Eos % (Auto) 2.9, Baso % (Auto) 1.6, Neut # (Auto) 3.0, Lymph # (Auto) 3.2, Lucas # (Auto) 1.0, Eos # (Auto) 0.2, Baso # (Auto) 0.1, Sodium 138, Potassium 4.8, Chloride 101, Carbon Dioxide 27, Anion Gap 14.8, BUN 7 L, Creatinine 0.60 L, Estimated Creat Clear 180, Estimated GFR 139, Est GFR ( Amer) 168, Glucose 120 H, Calcium 8.5, Magnesium 1.5 L, Total Bilirubin 0.4, AST 47, ALT 29, Alkaline Phosphatase 64, Total Protein 7.5, Albumin 4.1, Globulin 3.4 H, Albumin/Globulin Ratio 1.2 Orders (Tests/Meds): ED MEDICATIONS Discontinued Medications Generic Name Dose Route Start Last Admin Trade Name Freq PRN Reason Stop Dose Admin Hydromorphone HCl 0.5 mg 06/13/24 15:04 06/13/24 15:08 Hydromorphone 2mg/Ml Syringe IV 06/13/24 15:05 0.5 mg ONCE ONE Administration Hydromorphone HCl 0.5 mg 06/13/24 16:02 Hydromorphone 2mg/Ml Syringe IV 06/13/24 16:03 ONCE ONE Iopamidol 75 ml 06/13/24 14:44 06/13/24 14:44 Iopamidol-370 (76%);100ml Bottle IV 06/13/24 14:45 75 ml ONCE ONE Administration Morphine Sulfate 4 mg 06/13/24 14:01 06/13/24 14:06 Morphine 4mg/Ml Syringe IV 06/13/24 14:02 4 mg ONCE ONE Administration Ondansetron HCl 4 mg 06/13/24 14:04 06/13/24 14:06 Ondansetron 4mg/2ml Vial IV 06/13/24 14:05 4 mg ONCE ONE Administration Sodium Chloride 10 ml 06/13/24 14:44 06/13/24 14:44 Sodium Chloride 0.9% 10ml Syr (Rad Only) IV 06/13/24 14:45 10 ml ONCE ONE Administration ORDERS Category Date Time Status CT facial bones w con Stat Cat Scan 06/13/24 13:[address] soft tissue neck w con Stat Cat Scan 06/13/24 13:46 Completed XR chest portable Stat Exams 06/13/24 13:45 Completed Complete Blood Count Auto Diff Stat Lab 06/13/24 13:48 Completed Comprehensive Metabolic Panel Stat Lab 06/13/24 13:48 Completed Magnesium Stat Lab 06/13/24 13:48 Completed Medical Decision Narrative: 89-year-old male presents emerged department with dysphagia odynophagia, dyspnea history of significant head and neck/ENT cancer. Differential diagnose include but not limited to malignancy, Alec's angina, retropharyngeal abscess, esophagitis, pneumonia, COPD exacerbation, foreign body airway obstruction, among others. Discussed patient case with attending physician Dr. Maravilla Will obtain basic laboratory studies, magnesium level, chest x-ray, EKG, CT facial bones with contrast, CT soft tissue neck with contrast to further evaluate/characterization, patient is complaining of some pain, will give 4 mg IV morphine for pain, 4 mg IV Zofran for nausea. Reviewed and independently interpreted the patient's EKG at approximately 1400, NSR at 95 beats minute, MO interval does, QT interval within normal limits there is no STEMI. CMP unremarkable CBC unremarkable Patient is still complaining of some pain, will give 0.5 mg IV Dilaudid. I reviewed and independently interpreted the patient's CT neck with contrast on the corresponding radiologic report, extensive postsurgical changes in the head and neck described above, no acute abnormality identified, this study is performed using automated techniques to achieve radiation exposure as low as reasonably achievable. I reviewed and independently interpreted the patient's chest x-ray along the corresponding radiologic report, no acute findings. Reviewed and independently interpreted the patient's CT face/sinuses with contrast along with the corresponding radiologic report, extensive postoperative changes without evidence of acute abscess or inflammatory change. Patient still complaining of some pain, will give additional dose of IV Dilaudid 0.5 mg. Patient has slated follow-up with his oncologist on 06/20/2024, this was confirmed by calling [facility], he also had a swallow study on 06/16, and a what sounds like PET scan/CT scan scheduled for tomorrow, patient has adequate at home p.o. analgesia 10 mg [place] that he takes up to 3 times daily. I encouraged him to keep these appointments and continue to take all of his medication as prescribed, patient voiced understanding agree with current treatment/discharge plan, patient had adequate p.o. intake here in the emergency department with p.o. liquids. ED return precaution given. Patient voiced understanding and agreed with current plan/discharge plan. I was consulted by the VALERIE, and we discussed the complexity of the problems being addressed. I approved the treatment and management plan for this patient's care in the emergency department, thus performing a substantive portion of the medical decision making. Dewayne Mendoza MD Critical Care <Ирина Maravilla, DO - Last Filed: 06/13/24 15:27> Critical Care Time Critical Care Time: No
--- NOTE | 2024-06-13 13:59 | ECG_ITS ---
APPROVED REPORT Exam: Resting ECG HR:95 bpm ECG Measurements Heart Rate 95 AXES MO 163 P 52 QRSd 106 QRS 12 QT 343 T 19 QTc 396 Conclusion SINUS RHYTHM NORMAL ECG Electronically signed by : RIANNA JONES, 06/14/2024 06:27:31
[2024-06-13 14:00] VITALS: BP 119/80; PULSE 74; O2SAT 93
[2024-06-13] MEDS: ONDANSETRON 4MG/2ML VIAL 4 MG IV (14:06)
[2024-06-13] MEDS: MORPHINE 4MG/ML SYRINGE 4 MG IV (14:06)
[2024-06-13 14:08] LABS: Albumin Level 4.1 g/dl (3.5-5.0); Chloride 101 mmol/L (98-107); Potassium 4.8 mmoL/L (3.5-5.1); Sodium 138 mmol/L (136-145)
[2024-06-13 14:11] LABS: Alanine Aminotransferase 29 U/L (12-78); Albumin/Globulin Ratio 1.2 (1.1-1.8); Alkaline Phosphatase 64 U/L (38-126); Anion Gap 14.8 mEq/L (5-15); Aspartate Amino Transferase 47 U/L (17-59); Bilirubin,Total 0.4 mg/dl (0.2-1.3); Blood Urea Nitrogen 7 mg/dl (9-20); Carbon Dioxide 27 mmol/L (22.0-30.0); Creatinine Clearance Estimated 180 mL/min (50-200); Estimated Glomerular Filt Rate 139 ml/min (>60); GFR (African American) 168 ML/MIN (>60); Globulin 3.4 g/dL (1.3-3.2); Total Protein,Serum 7.5 g/dl (6.3-8.2)
[2024-06-13 14:12] LABS: Calcium 8.5 mg/dl (8.4-10.2); Glucose 120 mg/dl (74-100); Magnesium 1.5 mg/dl (1.6-2.3)
[2024-06-13 14:18] LABS: Basophils # 0.1 K/mm3 (0-0.2); Basophils % 1.6 % (0.1-2.0); Eosinophils # 0.2 K/mm3 (0.0-0.4); Eosinophils % 2.9 % (0.1-12.0); Hemoglobin 12.7 g/dL (14.1-18.0); Lymphocytes # 3.2 K/mm3 (0.7-4.5); Lymphocytes % 41.7 % (10-50); Mean Corpuscular HGB Conc 33.4 g/dL (31.8-35.4); Mean Corpuscular Hemoglobin 27.3 pg (27.0-31.2); Mean Corpuscular Volume 81.5 fl (80-94); Mean Platelet Volume 10.2 fl (7.4-10.4); Monocytes % 13.5 % (1.7-9.3); Neutrophils % 39.8 % (37.0-80.0); Platelet Count 496 K/mm3 (142-424); Red Blood Count 4.66 M/mm3 (4.60-6.20); Red Cell Distribution Width 17.6 % (11.5-17.5); White Blood Count 7.6 K/mm3 (4.8-10.8)
--- NOTE | 2024-06-13 14:21 | PC.NURSE ---
PT TO CT
[2024-06-13] MEDS: IOPAMIDOL-370 (76%);100ML BOTTLE 75 ML IV (14:44)
[2024-06-13] MEDS: SODIUM CHLORIDE 0.9% 10ML SYR (RAD ONLY) 10 ML IV (14:44)
[2024-06-13 14:52] VITALS: BP 131/87; PULSE 89; RESP 18; O2SAT 95
[2024-06-13] MEDS: HYDROMORPHONE 2MG/ML SYRINGE 0.5 MG IV (15:08)
[2024-06-13 15:30] VITALS: BP 105/69; PULSE 87; RESP 13; O2SAT 94
--- NOTE | 2024-06-13 15:49 | PC.NURSE ---
Called [facility] per Dr. Mendoza to schedule a follow up appointment for the pt. The pt has an appointment on 06/14/[address], 06/16/2024 barium swallow test, and on 06/20/2024 he has a follow up with his cancer doctor. said it was okay for him to keep the appointment on 06/20/2024 and that he could follow up with his cancer doctor then.
[2024-06-13 17:05] VITALS: BP 148/85; PULSE 82; RESP 18; TEMP 37.2; O2SAT 96
--- NOTE | 2024-06-13 17:12 | PC.NURSE ---
i spoke to pt and family regarding follow up after discharge. verbalized understanding. disc and reports given
== END 2024-06-13 17:18 | disposition home or self-care (01) ==
PROVIDERS: Physician Assistant; Emergency Provider Emergency Medicine; PCP Nurse Practitioner Family
DX: K13.79 Other lesions of oral mucosa (principal); R13.10 Dysphagia, unspecified; R22.1 Localized swelling, mass and lump, neck; R06.02 Shortness of breath
CPT/HCPCS: 70487; 70491; 71045; 80053; 83735; 85025; 93005; 96374; 96375; 99285; J1171; J2270; J2405; Q9967

== ENCOUNTER 2024-07-06 13:44 | Outpatient (POV) | payer MEDICAID, SELFPAY ==
[2024-07-06 14:08] VITALS: BP 106/79; PULSE 104; RESP 16; O2SAT 96; BMI 24.2
--- NOTE | 2024-07-06 15:42 | A.OFFVIS_ITS ---
[facility] Disclaimer: The information contained in this section may have been updated after the patient was seen, as this information can be updated by other users. Medical History (Updated 07/06/24 @ 14:31 by Elver Corcoran MD) Anxiety Alcoholism Hypothyroidism Larynx cancer Surgical History H/O abdominal surgery H/O thyroidectomy H/O laryngectomy Family History Sister Breast cancer Social History Smoking Status: Former smoker alcohol intake: former current occupational status: disabled Travel in the last 8 weeks?: None Have you lived/traveled outside US in past 30 days?: No Contact w/someone who lives/traveled outside US past 30 days?: No Exposure to someone with infectious disease in past 14 days?: No Do you have a fever (greater than 100.4 F or 38 C)?: No Have you tested positive for COVID-19?: No Exposed to someone with COVID-19 in past 14 days?: No Do you have a sore throat?: No Do you have a cough?: No Do you have any weakness?: No Do you have any diarrhea?: No Are you experiencing any unusual bleeding?: No Do you have any muscle aches/pain?: No Do you have any abdominal pain?: No Are you experiencing loss of taste or smell?: No PM Subjective & Objective Subjective Subjective:: Patient is a pleasant 59-year-old male who presents today for medication refill and follow-up. Today he does rate his pain a 9 out of 10. Patient does state that he was mowing the yard yesterday and ended up falling causing multiple abrasions and that he did hit his head. Patient does state that he has been having a lot of dizziness increased headaches as well as memory issues since this injury. Patient states that his pain is much worse today related to this. Patient has been currently prescribed [place] 10 mg 3 times a day from our office. He denies any side effects. His Ezra is currently unavailable. Review of Systems: General: No recent weight changes, no fever, no sleep disturbances Respiratory: No cough, no shortness of air, no recurring pulmonary infections Cardiovascular/peripheral vascular: No chest pain, no palpitations, no edema, no shortness of breath Gastrointestinal: No new onset incontinence, normal bowel movements reported Genitourinary: No new onset incontinence Musculoskeletal: Headache, dizziness, increased pain head Psychiatric: [Normal mood/affect] Neurological: [Denies weakness in extremities], [denies balance issues] Pain at rest (0-10 scale): 9 Objective Objective:: Physical Exam: General: Alert and oriented x3, no acute distress, pleasant and cooperative Lungs: Respirations even and unlabored, symmetrical chest expansion Eyes: PERRL Musculoskeletal: Flexion and extension of cervical [spine] somewhat guarded secondary to pain Neurological: Speech clear, no gross sensory deficit Has patient had previous pain injection?: No Conservative treatment options previously tried: Prescription medications Length of treatment: Longer than 6 Meds Home Medications and Allergies Home Medications ?Medication ?Instructions ?Recorded ?Confirmed ?Type clonazepam 0.5 mg tablet 0.5 mg PO BID 01/27/24 07/06/24 History levothyroxine 137 mcg tablet 137 mcg PO AM 01/27/24 07/06/24 History hydrocodone 10 mg-acetaminophen 1 tab PO TID #90 tabs 07/06/24 Rx 325 mg tablet New Prescriptions to Start Prescriptions: hydrocodone-acetaminophen Ирина Beyer Allergies Allergy/AdvReac Type Severity Reaction Status Date / Time gabapentin Allergy Unknown Verified 01/27/24 17:51 allergy reaction tramadol Allergy Unknown Verified 01/27/24 17:51 allergy reaction Assessment and Plan *Assessment and plan (1) Fall: Status: Acute Category: Medical Code(s): W19.XXXA - Unspecified fall, initial encounter (2) Lumbar radiculopathy: Status: Acute Category: Medical Code(s): M54.16 - Radiculopathy, lumbar region (3) Low back pain: Status: Acute Category: Medical Code(s): M54.50 - Low back pain, unspecified (4) Cervical radiculopathy: Status: Acute Category: Medical Code(s): M54.12 - Radiculopathy, cervical region (5) Cancer: Status: Acute Category: Medical Code(s): C80.1 - Malignant (primary) neoplasm, unspecified Plan Due to the patient's complaints all pertaining to a recent fall where he did hit his head and having increased dizziness, memory lapse, headaches and worsening pain we have recommended that he be seen in the ER for evaluation. I will still send in refills of his [place] and provide a 1 month supply of this medication. We will monitor his progress from his ER note and he was counseled to call our office if he needs us sooner before his 1 month follow-up. Patient agrees with this plan of care. Risks and benefits of the medication have been explained in detail to the patient. The patient does understand the risk of dependence on the medication when given over a prolonged period. Patient has been advised of risks of oversedation with the prescribed medication. Narcan has been offered to the paitent in the event of oversedation. Patient has been advised that a family member should also be educated regarding administration of Narcan. The patient has been advised to consult with his/her primary care provider and pharmacist regarding drug-drug interaction of medications currently prescribed. Patient has been prescribed a controlled substance after being counseled on the medication, medication safety, and possible side effects. Opioid contract was reviewed and signed by the patient, and that they have agreed to all of the terms set forth by our compliance program. A UDS is needed to verify patient's compliance with our office pain contract. This is ordered based off specific treatments related to chronic pain with the potential to abuse certain medications. Patient has been instructed to contact the clinic with any concerns before the next appointment. Dr. Mccrary has reviewed this note and agrees with this plan of care. This note was dictated using voice recognition software and make contain errors or omissions.
== END 2024-07-06 23:59 | disposition home or self-care (01) ==
PROVIDERS: Visit Provider Nurse Practitioner Family
DX: M54.16 Radiculopathy, lumbar region (principal); M54.50 Low back pain, unspecified; M54.12 Radiculopathy, cervical region; C80.1 Malignant (primary) neoplasm, unspecified; Z87.891 Personal history of nicotine dependence; W19.XXXA Unspecified fall, initial encounter
CPT/HCPCS: 99212; G0463

== ENCOUNTER 2024-07-06 14:00 | Emergency (ER) | payer MEDICAID, SELFPAY ==
[2024-07-06 14:06] VITALS: BP 127/88; PULSE 98; RESP 16; TEMP 36.6; O2SAT 98; BMI 24.3
--- NOTE | 2024-07-06 14:30 | ED_ITS ---
Discharge Plan Disposition Patient Disposition: Home, Self-Care Prescriptions Prescriptions: No Action levothyroxine 137 mcg tablet 137 mcg PO AM clonazepam 0.5 mg tablet 0.5 mg PO BID hydrocodone-acetaminophen 10-325 mg tablet 1 tab PO TID Qty: 90 0RF Referrals Follow up/Referrals: Provider,Referral, MD [Primary Care Provider] - See instructions Activity Restrictions/Add. Instructions Additional Instructions/Restrictions: Follow-up with your family doctor as needed for this visit to the emergency department. Take Tylenol 1000 mg every 6 hours (4 times daily) and ibuprofen 400 mg every 6 hours (4 times daily) as needed with food and water to prevent GI upset and kidney damage. Clinical Impressions Clinical Impression: Fall, Minor head trauma Print Language Print Language: Luxembourgish Discharge ED Provider: Elver Corcoran General Adult HPI General Chief complaint: Fall Stated complaint: AO- 07/05/24, hit head, memory loss, shaking Time Seen by Provider: 07/06/24 14:03 Mode of Arrival: Ambulatory Description of Symptoms (Recalled from ER Triage Doc. by RN): Fall yesterday while cutting the grass. Has scrathes on arms and abdomen. Patient reports LOC and hit head. Patient denies blood thinners History of Present Illness HPI narrative: Please note that above description of symptoms, in this electronic medical record under categorization of recalled from ER triage doctor by RN are reflective of an initial nursing assessment, however, is not reflective of my full history and physical exam that was personally taken and clarified. Consequentially, this preceding description of symptoms, which may include the p atient's categorized chief complaint in the EMR, do not reflect my personal clinical impression, and the ultimate description of history of present illness and patient stated complaints should be deferred to this section of the note. Unless stated otherwise or congruent with this section of the note, additional signs, symptoms, or incongruence should be interpreted as inaccurate with my clinical impression. Related Data Home Medications ?Medication ?Instructions ?Recorded ?Confirmed clonazepam 0.5 mg tablet 0.5 mg PO BID 01/27/24 07/06/24 levothyroxine 137 mcg tablet 137 mcg PO AM 01/27/24 07/06/24 Previous Rx's ?Medication ?Instructions ?Recorded hydrocodone 10 mg-acetaminophen 1 tab PO TID #90 tabs 07/06/24 325 mg tablet Allergies Allergy/AdvReac Type Severity Reaction Status Date / Time gabapentin Allergy Unknown Verified 01/27/24 17:51 allergy reaction tramadol Allergy Unknown Verified 01/27/24 17:51 allergy reaction PFSH PFS Disclaimer: The information contained in this section may have been updated after the patient was seen, as this information can be updated by other users. Medical History (Updated 07/06/24 @ 14:31 by Elver Corcoran MD) Anxiety Alcoholism Hypothyroidism Larynx cancer Surgical History H/O abdominal surgery H/O thyroidectomy H/O laryngectomy Family History Sister Breast cancer Social History Smoking Status: Former smoker alcohol intake: former current occupational status: disabled Travel in the last 8 weeks?: None Have you lived/traveled outside [place] in past 30 days?: No Contact w/someone who lives/traveled outside [place] past 30 days?: No Exposure to someone with infectious disease in past 14 days?: No Do you have a fever (greater than 100.4 F or 38 C)?: No Have you tested positive for COVID-19?: No Exposed to someone with COVID-19 in past 14 days?: No Do you have a sore throat?: No Do you have a cough?: No Do you have any weakness?: No Do you have any diarrhea?: No Are you experiencing any unusual bleeding?: No Do you have any muscle aches/pain?: No Do you have any abdominal pain?: No Are you experiencing loss of taste or smell?: No Other Medical History Have you received the Flu Vaccine for this season: Yes Have you received the Pneumonia Vaccine: Yes ROS Obtained: Yes All systems reviewed & no additional complaints except as documented Physical Exam General General appearance: alert Head Head exam: atraumatic and normocephalic Eye Eye exam: Present normal appearance, PERRL and EOMI Neck Neck exam: Present normal inspection, full ROM and trachea midline Respiratory Respiratory exam: Absent respiratory distress, wheezes, stridor, accessory muscle use or prolonged expiratory phase Cardiovascular Cardiovascular exam: Present other (Pulses equal symmetric in upper and lower extremities) Abdominal Exam Abdominal exam: Present soft; Absent distention, tenderness or pulsatile mass Extremities Exam Extremities exam: Absent edema Neurological Exam Neurological exam: Present alert, oriented X3 and CN II-XII intact; Absent motor sensory deficit Skin Skin exam: Present warm and dry; Absent diaphoresis or erythema Medical Decision Making Medical Records Medical records reviewed: Yes I reviewed the patient's medical records. Screening: Per USPSTF and CDC recommendations, given the prevalence of disease in our region, it is our hospital?s policy to screen for HIV and viral Hepatitis for all patients aged 18 and over and those with ongoing risk factors. Ezra Inquiry Pt receiving controlled substance: No Ezra was queried for this patient: No Vital Signs: 07/06/24 14:06 07/06/24 14:36 07/06/24 14:37 Temperature 98 F 98 F 98.2 F Temperature Source Tympanic Oral Pulse Rate 96 H 70 Pulse Rate [Right] 98 H Respiratory Rate 16 16 18 Blood Pressure 125/77 148/79 H Blood Pressure [Right Arm] 127/88 Blood Pressure Mean [Right Arm] 101 Blood Pressure Source Automatic Cuff Blood Pressure Position Sitting 02 Sat by Pulse Oximetry 98 Oxygen Delivery Method Room Air Room Air Room Air Medical Decision Narrative: 59-year-old male present with minor head trauma. He fell 2 days prior to this. Went to his pain management appointment just prior to this and told them that he hit his head. Pain management recommended he come to the emergency department stating that he told them he has been having confusion, memory difficulty since the fall. Came at the request of pain management folks. Patient presents s tating that he has no complaints, does not want a workup, and is not having headache, confusion, memory difficulties, neck or back pain, etc. No vision changes or neurologic deficits. Because of this, and Aneta CT head negative, no further workup deemed necessary. Discharged in stable condition home Director Integrated disclaimer Much of this encounter note is an electronic copier and printer field technician spoken language to printed text. Electronic copier and printer field technician of the spoken language may permit errors. Although I have reviewed the note, some errors may still exist. Critical Care Critical Care Time Critical Care Time: No
[2024-07-06 14:36] VITALS: BP 125/77; PULSE 96; RESP 16; TEMP 36.6; O2SAT 98
[2024-07-06 14:37] VITALS: BP 148/79; PULSE 70; RESP 18; TEMP 36.8; O2SAT 97
== END 2024-07-06 14:38 | disposition home or self-care (01) ==
PROVIDERS: Emergency Provider Emergency Medicine
DX: S09.90XA Unspecified injury of head, initial encounter (principal); W19.XXXA Unspecified fall, initial encounter
CPT/HCPCS: 99283

== ENCOUNTER 2024-07-14 10:58 | Emergency (ER) | payer MEDICAID, SELFPAY ==
--- NOTE | 2024-07-14 11:02 | ECG_ITS ---
APPROVED REPORT Exam: Resting ECG HR:84 bpm ECG Measurements Heart Rate [address] 165 P 64 QRSd 107 QRS 31 QT 368 T 2 QTc 408 Conclusion SINUS RHYTHM NORMAL ECG UNCONFIRMED REPORT Electronically signed by : Yvon Richardson MD 07/16/2024 06:42:19
[2024-07-14 11:05] VITALS: BP 113/66; PULSE 89; RESP 18; TEMP 37; O2SAT 92; BMI 25.0
[2024-07-14 11:12] LABS: Microscopic, Urine URINE MICROSCOPIC (MICROSCOPIC)
[2024-07-14 11:19] LABS: Appearance,Urine CLEAR (Clear); Bilirubin,Urine Negative (Negative); Blood, Urine Negative (Negative); Color,Urine YELLOW (Yellow); Glucose,Urine (UA) Negative (Negative); Ketones,Urine Negative (Negative); Leukocyte Esterase,Urine Negative (Negative); Nitrate,Urine Negative (Negative); Protein,Urine Negative (Negative); Specific Gravity, Urine <= 1.005 (1.005-1.030); Urobilinogen,Urine 0.2 EU/dl (0.2)
[2024-07-14 11:25] LABS: Basophils # 0.1 K/mm3 (0-0.2); Basophils % 1.6 % (0.1-2.0); Eosinophils # 0.2 Kmm3 (0.0-0.4); Eosinophils % 3.9 % (0.1-12.0); Hematocrit 34.5 % (42.0-52.0); Immature Granulocytes # 0.01 10^3uL; Immature Granulocytes % 0.2 %; Lymphocytes # 2.2 K/mm3 (0.7-4.5); Lymphocytes % 45.9 % (10-50); Mean Corpuscular HGB Conc 34.8 g/dL (31.8-35.4); Mean Corpuscular Hemoglobin 28.2 pg (27.0-31.2); Mean Platelet Volume 9.6 fl (7.4-10.4); Monocytes # 0.9 K/mm3 (0.1-1.0); Monocytes % 18.1 % (1.7-9.3); Neutrophils # 1.5 K/mm3 (1.8-7.8); Neutrophils % 30.3 % (37.0-80.0); Nucleated Red Blood Cells # 0 10^3/uL; Nucleated Red Blood Cells % 0 %; Platelet Count 204 K/mm3 (142-424); Red Blood Count 4.26 M/mm3 (4.60-6.20); White Blood Count 4.9 K/mm3 (4.8-10.8)
--- NOTE | 2024-07-14 11:25 | CT_ITS ---
FINAL REPORT TECHNIQUE: Axial imaging of the chest is obtained after the administration of contrast. 3-D MIP reformatted images were also obtained and reviewed per PE protocol. This study was performed with techniques to keep radiation doses as low as reasonably achievable (ALARA). Individualized dose reduction techniques using automated exposure control or adjustment of mA and/or kV according to the patient's size were employed. CLINICAL HISTORY: h/o h neck cancer, chest pain COMPARISON: 01/27/2024 FINDINGS: The pulmonary arteries are well filled. There is no evidence of pulmonary embolus. There is no aortic dissection. Heart size is normal. There is no mediastinal, hilar, or axillary lymphadenopathy. There is evidence of prior granulomatous disease. Changes of emphysema are noted. There are dependent ground glass opacities noted bilaterally, which have increased since the prior exam, still favor atelectasis with pneumonia less likely. There is no pleural or pericardial effusion. Limited evaluation of the upper abdomen is without acute abnormality. Fatty infiltration of the liver and a distended gallbladder are present. No acute osseous abnormality. IMPRESSION: No evidence of pulmonary embolism or aortic dissection. Dependent ground glass opacities are noted bilaterally, which have increased since the prior exam. Atelectasis is favored, with pneumonia less likely. Reviewed, Interpreted and Dictated by Kate Mello MD Transcribed by Rose Oates Authenticated and [facility]
--- NOTE | 2024-07-14 11:25 | CT_ITS ---
FINAL REPORT TECHNIQUE: Thin section axial CT images with coronal and sagittal reformats were performed after the administration of IV contrast. This study was performed with techniques to keep radiation doses as low as reasonably achievable (ALARA). Individualized dose reduction techniques using automated exposure control or adjustment of mA and/or kV according to the patient''s size were employed. CLINICAL HISTORY: h/o h neck cancer, new pain COMPARISON: 06/13/2024 FINDINGS: There are postoperative changes of the posterior tongue, and laryngectomy. There are clips present in the bilateral neck, consistent with bilateral lymph node dissection. The nasopharynx is normal in appearance. The oropharynx is unchanged from the prior exam. The epiglottis is absent. The parotid glands are normal. The right submandibular gland has been surgically resected, and the left submandibular gland is small. No cervical adenopathy is noted, and no cervical mass is present. No acute osseous abnormality is noted. The visualized portions of the paranasal sinuses and mastoid air cells are clear. IMPRESSION: Extensive postoperative changes are identified in the oral cavity, and neck. No acute abnormality is identified. Reviewed, Interpreted and Dictated by Kate Mello MD Transcribed by Rose Oates Authenticated and [facility]
[2024-07-14] MEDS: MORPHINE 4MG/ML SYRINGE 4 MG IV (11:36)
[2024-07-14] MEDS: ASPIRIN 81MG CHEWABLE TABLET 324 MG PO (11:36)
[2024-07-14] MEDS: ONDANSETRON 4MG/2ML VIAL 4 MG IV (11:36)
[2024-07-14 11:44] LABS: Alanine Aminotransferase 53 U/L (12-78); Albumin Level 4.1 g/dl (3.5-5.0); Albumin/Globulin Ratio 1.4 (1.1-1.8); Alkaline Phosphatase 110 U/L (38-126); Anion Gap 9.1 mEq/L (5-15); Aspartate Amino Transferase 112 U/L (17-59); Bilirubin,Total 0.5 mg/dl (0.2-1.3); Blood Urea Nitrogen 7 mg/dl (9-20); Calcium 8.3 mg/dl (8.4-10.2); Carbon Dioxide 27 mmol/L (22.0-30.0); Chloride 104 mmol/L (98-107); Creatinine Clearance Estimated 209 mL/min (50-200); Estimated Glomerular Filt Rate 171 ml/min (>60); GFR (African American) 207 ML/MIN (>60); Glucose 93 mg/dl (74-100); Lipase 223 U/L (23-300); Potassium 4.1 mmoL/L (3.5-5.1); Sodium 136 mmol/L (136-145); Total Protein,Serum 7.1 g/dl (6.3-8.2)
[2024-07-14 11:45] LABS: Squamous Epithelial Cell,Urine Occasional #/hpf (0-5)
[2024-07-14 11:48] LABS: D-Dimer 1.33 ug/mL (0.0-0.5)
[2024-07-14 11:51] VITALS: BP 112/74; PULSE 85; O2SAT 98
[2024-07-14 11:58] LABS: Troponin I < 0.01 ng/ml (0.00-0.034)
--- NOTE | 2024-07-14 11:59 | [facility].EDCP ---
Discharge Plan Disposition Patient Disposition: Home, Self-Care Condition: Good Prescriptions Prescriptions: New prednisone 20 mg tablet 40 mg PO DAILY 5 Days Qty: 10 0RF furosemide [Lasix] 20 mg tablet 20 mg PO DAILY 7 Days Qty: 7 0RF doxycycline hyclate 100 mg tablet 100 mg PO BID 7 Days Qty: 14 0RF No Action levothyroxine 137 mcg tablet 137 mcg PO AM clonazepam 0.5 mg tablet 0.5 mg PO BID hydrocodone-acetaminophen 10-325 mg tablet 1 tab PO TID Qty: 90 0RF Referrals Follow up/Referrals: Provider,MD Elida [Primary Care Provider] - See instructions Gianni Da Silva MD [Staff Physician] - See instructions Activity Restrictions/Add. Instructions Additional Instructions/Restrictions: You were evaluated in the emergency department today. At this time, your workup is reassuring. You do have some groundglass opacities noted on your lungs, which could be from infection like pneumonia versus fluid from heart failure. We are prescribing you medications to cover both. It is very important that you follow-up closely with your primary care provider. I am also recommending follow-up with cardiology because of your chest pain. Please call their office to schedule an appointment. Return to the emergency department for new or worsening symptoms. Clinical Impressions Clinical Impression: Right-sided chest pain, Ground glass opacity present on imaging of lung Instructions Patient Instructions: DI for Pneumonia -- Adult, DI for Atypical Chest Pain Print Language Print Language: Swazi Discharge ED Provider: Ирина Maravilla HPI General Chief Complaint: Chest Pain Stated Complaint: Chest Pain Time Seen by Provider: 07/14/24 11:05 Mode of Arrival: EMS Source of Information: Patient and EMS Description of Symptoms (Recalled from ER Triage Doc. by RN): Reports right sided chest pain that started 3 days ago. States it gets worse with exertion. History of Present Illness HPI narrative: This patient is a 59-year-old male with a history of head and neck cancer status post resection with trach and feeding tube presenting for evaluation with concern for right sided chest pain that started 3 to 4 days ago. He notes that he gets worse with exertion. He also states that he is having some pain in his tongue, with chronic pain in his tongue after treatment for his head neck cancer. He is not currently on treatment. No fevers, cough, congestion, shortness of breath, abdominal pain, or other concerns. On review of systems, he does note nausea, however. He was sent by his PCPs office who obtained an EKG that was reportedly reassuring but wanted him evaluated further Related Data Home Medications ?Medication ?Instructions ?Recorded ?Confirmed clonazepam 0.5 mg tablet 0.5 mg PO BID 01/27/24 07/06/24 levothyroxine 137 mcg tablet 137 mcg PO AM 01/27/24 07/06/24 Previous Rx's ?Medication ?Instructions ?Recorded hydrocodone 10 mg-acetaminophen 1 tab PO TID #90 tabs 07/06/24 325 mg tablet doxycycline hyclate 100 mg tablet 100 mg PO BID 7 days #14 tabs 07/14/24 furosemide 20 mg tablet (Lasix) 20 mg PO DAILY 1 week #7 tabs 07/14/24 prednisone 20 mg tablet 40 mg (2 x 20 mg) PO DAILY 5 days 07/14/24 #10 tabs Allergies Allergy/AdvReac Type Severity Reaction Status Date / Time gabapentin Allergy Unknown Verified 01/27/24 17:51 allergy reaction tramadol Allergy Unknown Verified 01/27/24 17:51 allergy reaction PFSH PFS Disclaimer: The information contained in this section may have been updated after the patient was seen, as this information can be updated by other users. Medical History Anxiety Alcoholism Hypothyroidism Larynx cancer Surgical History H/O abdominal surgery H/O thyroidectomy H/O laryngectomy Family History Sister Breast cancer Social History Smoking Status: Unknown if ever smoked alcohol intake: former current occupational status: disabled Travel in the last 8 weeks?: None Have you lived/traveled outside [place] in past 30 days?: No Contact w/someone who lives/traveled outside [place] past 30 days?: No Exposure to someone with infectious disease in past 14 days?: No Do you have a fever (greater than 100.4 F or 38 C)?: No Have you tested positive for COVID-19?: No Exposed to someone with COVID-19 in past 14 days?: No Do you have a sore throat?: No Do you have a cough?: No Do you have any weakness?: No Do you have any diarrhea?: No Are you experiencing any unusual bleeding?: No Do you have any muscle aches/pain?: No Do you have any abdominal pain?: No Are you experiencing loss of taste or smell?: No Other Medical History Have you received the Flu Vaccine for this season: Yes Have you received the Pneumonia Vaccine: Yes ROS Obtained: Yes All systems reviewed & no additional complaints except as documented Physical Exam General General appearance: alert and in no apparent distress Head Head exam: atraumatic and normocephalic Eye Eye exam: Present normal appearance, PERRL and EOMI ENT ENT exam: Present mucous membranes moist, normal external ear exam and other (Chronic changes to the oropharynx related to prior head and neck cancer status post resection and treatment) Neck Neck exam: Present full ROM, trachea midline and other (Trach in place with no skin change); Absent tenderness Chest Chest inspection: Present normal inspection and symmetric chest wall rise; Absent tenderness Respiratory Respiratory exam: Present normal lung sounds bilaterally; Absent respiratory distress, wheezes, stridor or accessory muscle use Cardiovascular Cardiovascular exam: Present regular rate and normal rhythm Abdominal Exam Abdominal exam: Present soft; Absent distention, tenderness or guarding Extremities Exam Extremities exam: Present normal inspection, full ROM and normal capillary refill; Absent tenderness or edema Back Exam Back exam: Present normal inspection and full ROM; Absent tenderness Neurological Exam Neurological exam: Present alert, oriented X3, CN II-XII intact and normal gait; Absent motor sensory deficit Psychiatric Psychiatric exam: Present normal affect and normal mood Skin Skin exam: Present warm, dry and other (Scarring to right chest wall from prior shingles infection, no obvious active lesions) HEART Score HEART Score HEART Score assessment performed?: Yes History (anamnesis): Slightly suspicious ECG: Normal Age: 45-65 years Risk factors: 1-2 risk factors Troponin: </= normal limit HEART Score: 2 Critical Care Critical Care Time Critical Care Time: Yes Attestation: On 07/14/24, the high probability of a clinically significant, sudden or life threatening deterioration of the following system(s) required my full and direct attention, intervention and personal management. The time I documented below is in addition to time spent performing reported procedures but includes the following listed in this critical care notation. Total Time Total Critical Care Time: 35 Medical Decision Making Ezra Inquiry Pt receiving controlled substance: No Vital Signs Vital Signs: 07/14/24 11:05 07/14/24 11:51 07/14/24 12:00 Temperature 98.6 F Temperature Source Oral Pulse Rate 85 82 Pulse Rate [Radial] 89 Respiratory Rate 18 Blood Pressure 112/74 111/79 Blood Pressure [Right Arm] 113/66 Blood Pressure Mean [Right Arm] 81 Blood Pressure Source [Right Arm] Automatic Cuff Blood Pressure Position [Right Arm] Sitting 02 Sat by Pulse Oximetry 92 L 98 92 L Oxygen Delivery Method Room Air Room Air Room Air Lab Data Labs: Lab Results 07/14/24 11:08: Urine Color Yellow, Urine Appearance Clear, Urine pH 6.0, Ur Specific [place] <= 1.005, Urine Protein Negative, Urine Glucose (UA) Negative, Urine Ketones Negative, Urine Blood Negative, Urine Nitrate Negative, Urine Bilirubin Negative, Urine Urobilinogen 0.2, Ur Leukocyte Esterase Negative, Urine RBC None, Urine WBC None, Ur Squamous Epith Cells Occasional, Urine Bacteria None 07/14/24 11:18: WBC 4.9, RBC 4.26 L, Hgb 12.0 L, Hct 34.5 L, MCV 81.0, MCH 28.2, MCHC 34.8, RDW 20.0 H, Plt Count 204, MPV 9.6, Neut % (Auto) 30.3 L, Lymph % (Auto) 45.9, [place] % (Auto) 18.1 H, Eos % (Auto) 3.9, Baso % (Auto) 1.6, Neut # (Auto) 1.5 L, Lymph # (Auto) 2.2, [place] # (Auto) 0.9, Eos # (Auto) 0.2, Baso # (Auto) 0.1, D-Dimer 1.33 H, Sodium 136, Potassium 4.1, Chloride 104, Carbon Dioxide 27, Anion Gap 9.1, BUN 7 L, Creatinine 0.50 L, Estimated Creat Clear 209, Estimated GFR 171, Est GFR ( Amer) 207, Glucose 93, Calcium 8.3 L, Total Bilirubin 0.5, AST 112 H, ALT 53, Alkaline Phosphatase 110, Troponin I < 0.01, Total Protein 7.1, Albumin 4.1, Globulin 3.0, Albumin/Globulin Ratio 1.4, Lipase 223 07/14/24 11:18 07/14/24 11:18 Response Orders (Tests/Meds): ED MEDICATIONS Generic Name Dose Route Start Last Admin Trade Name Freq PRN Reason Stop Dose Admin Lidocaine 1 each 07/14/24 14:24 Lidocaine 5% Transdermal Patch TD 07/14/24 14:25 ONCE ONE Sodium Chloride 10 ml 07/14/24 12:51 07/14/24 12:52 Sodium Chloride 0.9% 10ml Syr (Rad Only) IV 08/13/24 12:50 10 ml NEEDED PRN Administration Maintain IV Site Sodium Chloride 10 ml 07/14/24 13:17 Sodium Chloride 0.9% 10ml Vial IV 08/13/24 13:16 NEEDED PRN dilute protonix Discontinued Medications Generic Name Dose Route Start Last Admin Trade Name Freq PRN Reason Stop Dose Admin Aspirin 324 mg 07/14/24 11:26 07/14/24 11:36 Aspirin 81mg Chewable Tablet PO 07/14/24 11:27 324 mg ONCE ONE Administration Iopamidol 155 ml 07/14/24 12:51 07/14/24 12:52 Iopamidol-370 (76%);100ml Bottle IV 07/14/24 12:52 155 ml ONCE ONE Administration Ketorolac Tromethamine 15 mg 07/14/24 13:17 07/14/24 13:34 Ketorolac 30mg/Ml Vial IV 07/14/24 13:18 15 mg ONCE ONE Administration Morphine Sulfate 4 mg 07/14/24 11:26 07/14/24 11:36 Morphine 4mg/Ml Syringe IV 07/14/24 11:27 4 mg ONCE ONE Administration Ondansetron HCl 4 mg 07/14/24 11:26 07/14/24 11:36 Ondansetron 4mg/2ml Vial IV 07/14/24 11:27 4 mg ONCE ONE Administration Pantoprazole Sodium 40 mg 07/14/24 13:17 07/14/24 13:33 Pantoprazole 40mg Vial IV 07/14/24 13:18 40 mg ONCE ONE Administration Promethazine HCl 25 mg 07/14/24 13:46 07/14/24 13:54 Promethazine Hcl 25mg/Ml 1ml Vial IV 07/14/24 13:47 25 mg ONCE ONE Administration Sodium Chloride 50 ml 07/14/24 12:51 07/14/24 12:52 0.9 % Sodium Chloride 50 Ml Vial IV 07/14/24 12:52 50 ml ONCE ONE Administration Sodium Chloride 25 ml 07/14/24 13:46 07/14/24 13:54 Sodium Chloride 0.9% 25ml Bag IV 07/14/24 13:47 25 ml ONCE ONE Administration ORDERS Category Date Time Status CT angio chest PE protocol Stat Cat Scan 07/14/24 11:[address] soft tissue neck w con Stat Cat Scan 07/14/24 11:25 Taken Complete Blood Count Auto Diff Stat Lab 07/14/24 11:18 Completed Comprehensive Metabolic Panel Stat Lab 07/14/24 11:18 Completed D-Dimer Stat Lab 07/14/24 11:18 Completed Lipase Stat Lab 07/14/24 11:18 Completed Trop I [Troponin I] Stat Lab 07/14/24 11:18 Completed Troponin I Q3H Lab 07/14/24 13:53 Received Troponin I Q3H Lab 07/14/24 17:15 Ordered UA [Urinalysis and Microscopic] Stat Lab 07/14/24 11:08 Completed ECG Data Tracing #1: Attestation: I reviewed this ECG and interpreted as documented below: ECG Narrative: Normal sinus rhythm with a ventricular of [address]/T wave changes that acute STEMI. No significant changes from EKG obtained at the beginning of June ECG initial impression date: 07/14/24 ECG initial impression time: 11:04 MDM Narrative Medical Decision Narrative: In summary, this patient is a 59-year-old male presenting to the Emergency Department for evaluation of right-sided chest pain. Differential diagnoses considered include but are not limited to ACS, dysrhythmia, PE, pneumonia, costochondritis, pneumothorax, pleurisy, musculoskeletal pain. Ruling out the most morbid conditions drove assessment. It should be noted patient's history includes head and neck cancer which is reportedly at goal therapy. He is not currently on treatment. This complicates all aspects of care by increasing patient's risk for morbidity. I reviewed patient's past medical records and noted extensive surgical history and management at . It looks like he had radiation back in 2018 and then had resection with flap creation in 2022. Since then it was like he is complained of chronic tongue pain for which has been evaluated there multiple times. He has had chronic pain in his oral cavity and dysphagia. They have been managing this on an outpatient basis. He complains of some oral pain at this time, but it does not appear to be changed from his prior issues Patient's new complaint at this time appears to be only right-sided chest pain. He has healed scars on the right side of his chest wall from prior shingles infection, but no active appreciable lesions and states this does not feel similar to prior shingles infection. Otherwise, exam, vitals, cardiopulmonary exam is reassuring. Vitals are normal on cardiac telemetry. He is in no distress at all and is very well-appearing. Workup included CBC, CMP, troponin, CTA PE protocol, CT soft tissue neck with IV contrast. He is given IV morphine and Zofran for symptomatic improvement as well as aspirin. EKG does not demonstrate any significant changes from prior. I independently interpreted CT scan prior to the radiologist read and noted groundglass opacities in the lungs. Please see their read for final interpretation. Unclear if this is infectious versus from fluid overload from heart failure or what exactly is going on, but patient does report an increased cough and is having chest pain, sweats possibly could have infectious etiology with pleurisy. Will treat with doxycycline. He does not look grossly volume overloaded and vitals are normal on cardiac telemetry. Labs were obtained that demonstrated reassuring CBC with no significant leukocytosis or anemia, reassuring chemistry with nothing that is actionable, negative troponins x 2. On reassessment, patient is resting comfortably and is feeling better. Like I said, it is unclear if he has infectious etiology versus heart failure as a cause of his groundglass opacities, but I am going to give him a short course of Lasix as well as doxycycline to cover both to be on the safe side. I am also prescribing prednisone for the inflammation and pain that he is experiencing. there is nothing on exam or workup to suggest acute shingles, acute heart failure requiring admission, or ACS. I feel he is appropriate for discharge home with prescriptions for doxycycline, prednisone, and Lasix for 1 week as above as well as instructions for very close follow-up with primary care and cardiology. Strict return precautions given
[2024-07-14 12:00] VITALS: BP 111/79; PULSE 82; O2SAT 92
[2024-07-14] MEDS: SODIUM CHLORIDE 0.9% 10ML SYR (RAD ONLY) 10 ML IV (12:52)
[2024-07-14] MEDS: 0.9 % SODIUM CHLORIDE 50 ML VIAL IV (12:52)
[2024-07-14] MEDS: IOPAMIDOL-370 (76%);100ML BOTTLE 155 ML IV (12:52)
[2024-07-14] MEDS: PANTOPRAZOLE 40MG VIAL 40 MG IV (13:33)
[2024-07-14] MEDS: KETOROLAC 30MG/ML VIAL 15 MG IV (13:34)
[2024-07-14] MEDS: PROMETHAZINE HCL 25MG/ML 1ML VIAL 25 MG IV (13:54)
[2024-07-14] MEDS: SODIUM CHLORIDE 0.9% 25ML BAG 25 ML IV (13:54)
[2024-07-14 14:22] LABS: Troponin I 0.02 ng/ml (0.00-0.034)
--- NOTE | 2024-07-14 14:37 | PC.NURSE ---
Spoke with Kimberlee in case management. Will work on getting the patient a ride home.
[2024-07-14 14:38] VITALS: BP 119/75; PULSE 88; RESP 20; TEMP 36.7; O2SAT 95
--- NOTE | 2024-07-14 15:49 | PC.NURSE ---
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
--- NOTE | 2024-07-14 15:54 | CARE MANAGER ---
Stephanie CURTIS insurance and benefits clerk contacted [facility] and they will be coming to get patient and take him home from the ER.
== END 2024-07-14 16:26 | disposition home or self-care (01) ==
PROVIDERS: Emergency Provider Emergency Medicine
DX: R07.89 Other chest pain (principal); R91.8 Other nonspecific abnormal finding of lung field; Z85.841 Personal history of malignant neoplasm of brain; Z85.21 Personal history of malignant neoplasm of larynx; Z93.0 Tracheostomy status; Z93.1 Gastrostomy status
CPT/HCPCS: 70491; 71275; 80053; 81001; 83690; 84484; 85025; 85378; 93005; 96374; 96375; 99291; J1885; J2270; J2405; J2470; J2550; Q9967

== ENCOUNTER 2024-08-23 11:18 | Outpatient (POV) | payer MEDICAID, SELFPAY ==
--- OUTSIDE RECORDS SUMMARY | 2022-07-22 13:08 | XMS_ITS | Continuity of Care Document ---
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 [address] [place], [place], [id number], [place]. tel:[phone] Family History Family Member Type Diagnosis Age At Onset No Information Payers Payer name Insurance type Covered democrat ID Authoriza tion(s) No Information Social History [...]
--- OUTSIDE RECORDS SUMMARY | 2024-07-18 10:00 | XMS_ITS | Encounter Summary ---
Author Organization Healthcare Address [address] [place] [address] Care Team Providers Care Receivable Executive Name Role Phone Bebeto Walton MD Unavailable Gregoria Aviles MD Unavailable [phone] David Capone MD Primary Care Provider [phone] Em Bell MD Unavailable [phone] Reason for Visit * Reason Comments esophageal dilation * Consultation (Routine) - Closed Specialty Diagnoses / Procedures Referred By Regina t Referred To Contact Otolaryngology Diagnoses Primary tongue squamous cell carcinoma Oropharyngeal dysphagia Bebeto Walton MD [address] [place] [address] Phone: tel: fax: [facility] [address] [place] [address] Phone: tel: fax: Referral ID Status Reason Start Date Expiration Date V isits Requested Visits Authorized [id number] Closed Specialty Services Required 06/20/2024 12/20/2025 1 1 Encounter Details Date Type Department Care Team (Late st Contact Info) Description 07/18/2024 10:00 AM EDT Consult [facility] [address] [address] Kyleigh Lyles MD [address] [place] [phone] Primary tongue squamous cell carcinoma; Oropharyngeal dysphagia Social History Tobacco Use Types Packs/Day Years Used Date Smoking Tobacco: Former Cigarettes 1 35 1 981 - 2016 Smokeless Tobacco: Never Alcohol Use Standard Drinks/Week Comments Not Currently 0 (1 standard drink = 0.6 oz pure alcohol) quit drinking beer about 2 months ago Humiliation, Afraid, Rape, and Kick questionnair e Answer Date Recorded Within the last year, have y ou been afraid of your partner or ex-partner? No 02/15/2023 Within the last year, have y ou been humiliated or emotionally abused in other ways by your partner or ex-partner? No Within the last year, have y ou been kicked, hit, slapped, or otherwise physically hurt by your partner or ex-partner? No 02/15/2023 Within the last year, have y ou been raped or forced to have any kind of sexual activity by your partner or ex-partner? No 02/15/2023 Hunger Vital Sign Answer Date Recorded Within the past 12 months, y ou worried that your food would run out before you got the money to buy more. Sometimes true Within the past 12 months, t he food you bought just didn't last and you didn't have money to get more. Sometimes true 01/2023 PRAPARE - Transportation Answer Date Re corded In the past 12 months, has l ack of transportation kept you from medical appointments or from getting medications? No 02/05 In the past 12 months, has l ack of transportation kept you from meetings, work, or from getting things needed for daily living? No 02/15/2023 Housing Stability Vital Sign Answer Brian e Recorded In the last 12 months, was t here a time when you were not able to pay the mortgage or rent on time? No 02/15/2023 In the last 12 months, how many places have you lived? 1 02/15/2023 In the last 12 months, was t here a time when you did not have a steady place to sleep or slept in a prison (including now)? No 02/15/2023 CAGE ASSESSMENT Answer Date Recorded Cage unable to access Not on file 10/02/2022 Maximum number of drinks you had on a given occasion in the last month? 5 or more drinks 10/02/2022 How many alcoholic Beverages do you typically drink in a week? 15 or more per week 10/02/2022 Have you ever felt you shoul d CUT down on your drinking? 0 10/02/2022 Have you been ANNOYED by peo ple criticizing your drinking? 1 10/02/2022 Have you felt GUILTY about your drinking? 0 10/02/2022 Have you had a drink first t pavan in the morning (EYE-TRANSFORMATION CONSULTANT) to steady your nerves or to get rid of a hangover? 1 10/02/2022 CAGE Questionnaire Score 2 023 Utilities Answer Date Recorded In the past 12 months has SEC Watch, gas, oil, or water Electrolytic Ozone threatened to shut off services in your home? No 02/15/2023 Sex and Gender Information Value Date Recorded Sex Assigned at Male 10/02/2022 9:55 AM EDT Legal Sex Male 7:41 PM EDT Gender Identity Male 10/02/2022 9:55 AM EDT Sexual Orientation Not on file documented as of this encounter Miscellaneous Notes * Progress Notes - Nayeli Morley MD - 07/18/2024 10:00 AM EDT Otolaryngology Head and Neck Surgery No chief complaint on file. Dear Dr. Walton, I had the pleasure of seeing your patient, Anupam Metz Jr. in the [facility] today in consultation regarding his dysphagia. SUBJECTIVE: Anupam Metz Jr. is a(n) 59 y.o. male with dysphagia. 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 He underwent adjuvant radiation therapy completed in [place] on 04/01/2017. 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 He currently follows with Dr. Walton for cancer surveillance. He underwent a barium swallow on 06/16/2024 and this revealed narrowing ofthe neopharynx. He reports he has had trouble swallowing solid food, feeling like it'll gets stuck. He would have to grind up his food. He doesn't have issues with liquids and currently drinks boost. He does not have a feeding tube. He has been able to maintain his weight. RED FLAG SYMPTOMS: The patient denies significant coughing with eating (every meal), significant diet modification (drinking liquids only), hematemesis, weight loss due to swallowing problem, odynophagia, excessive vomiting. PERTINENT SOCIAL HISTORY: Smoking history: He reports that he quit smoking about 9 years ago. His smoking use included cigarettes. He started smoking about 44 years ago. He has a 35 pack-year smoking history. He has never used smokeless tobacco. ETOH: He reports that he does not currently use alcohol. Drugs: He reports current drug use. Drug: Marijuana. MEDS: Current Medications[1] ALLERGIES: Gabapentin and Tramadol PHYSICAL EXAM: There were no vitals taken for this visit. Gen: Well developed, well nourished male in no apparent distress. Neuro: A&Ox3. Respiratory: No increased WOB, no stridor OC/OP: Tongue midline and mobile, no oral cavity lesions or masses. Evidence of previous flap. Palate elevates symmetric. Neck: No palpable masses. Lymph: No palpable lymphadenopathy PROCEDURE NOTE: PROCEDURE PERFORMED: Flexible pharyngoscopy INDICATION: Dysphagia PROVIDER: Kyleigh Lyles MD Commercial Real Estate Paralegal: Milli ANESTHESIA: Local (lidocaine with afrin) PROCEDURE IN DETAIL: The patient was placed in the seated sniffing position. A flexible laryngoscope was inserted through the right nasal cavity and guided into the polo pharynx. The neopharynx was visualized. See findings below. The patient was discharged in good condition. Summary: No concerning lesions or masses. Closed upper esophageal sphincter, unable to visualize when open. DATA REVIEW: I personally reviewed the following data below: Lab Results Component Value Date TSH 36.06 (H) 04/09/2017 I, Kyleigh Lyles, personally reviewed the following imaging, with my interpretation as follows: Barium swallow 06/16/24 Narrowed UES with prominent cricopharyngeus muscle at region of narrowing. He also has poor motility at the posterior tongue to propel food inferiorly. IMPRESSION: Narrowing of the neopharynx at approximately C5 measuring at smallest 5 mm in AP dimension. There was significant delay of passage of the pill through this narrowing. Narrowing of the gastroesophageal junction measuring approximately 5 mm in smallest diameter. Passage of the pill through the gastroesophageal junction was not visualized during the study. EGD couldbe considered for further evaluation. Assessment/Plan Anupam Metz Jr. is a 59 y.o. 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 He presents with ongoing difficulties with dysphagia with solid foods. I reviewed his MBS recently which does show narrowing of his esophagus atthe level of the CP muscle. I discussed with him that we could do an esophageal dilation in clinic or in the OR. Given his history of radiation, I would like to perform slow increase in diameter- one dilation a month progressively increasing in size. We will start with two dilations for now. I discussed the risks and benefitsof the procedure. Patient would like to proceed with esophageal dilation in the OR rather than in clinic. If you have any questions, please do not hesitate to contact me. Thank you again for allowing me toparticipate in his care. Best personal regards, Kyleigh Lyles MD [1] Current Outpatient Medications: clonazePAM (KlonoPIN) 1 MG disintegrating tablet, Take 1 tablet (1 mg) by mouth 3 (three) times a day for 14 days. (Patient not taking: Reported on 06/20/2024), Disp: 45 tablet, Rfl: 0 diazePAM (Valium) 5 MG tablet, TAKE ONE (1) TABLET TWICE A DAY BY ORAL ROUTE FOR 30 DAYS. (Patient not taking: Reported on 06/20/2024), Disp: , Rfl: docusate sodium (Colace) 50 MG/5ML oral liquid, Take 10 mL (100 mg) by mouth 2 (two) times a day. (Patient not taking: Reported on 06/20/2024), Disp: 100 mL, Rfl: 0 HYDROcodone-acetaminophen ([place]) 10-325 MG tablet, TAKE ONE TABLET BY MOUTH THREE TIMES DAILY MAY CAUSE DROWSINESS, Disp: , Rfl: ibuprofen 600 MG tablet, Take 1 tablet (600 mg) by mouth 3 (three) times a day. (Patient not taking: Reported on 06/20/2024), Disp: , Rfl: levothyroxine (Synthroid, Levoxyl) 137 MCG tablet, Take 1 tablet (137 mcg) by mouth 1 (one) time each day., Disp: , Rfl: methocarbamol (Robaxin) 500 MG tablet, Take 1 tablet (500 mg) by mouth 4 (four) times a day. (Patient taking differently: Take 2 tablets by mouth as needed in the morning and 2 tablets as needed at noon and 2 tablets as needed in the evening and 2 tablets as needed before bedtime.), Disp: 120 tablet, Rfl: 0 naloxone (Kloxxado) 8 mg/0.1 mL nasal spray, 1. Give 1 spray in nostril for no/slow breathing or cannot wake after opioid use 2. Call 911 3. Repeat in other nostril if symptoms continue (Patient not taking: Reported on 06/20/2024), Disp: 1 each, Rfl: 0 oxyCODONE-acetaminophen (Percocet) 10-325 MG tablet, 3 (three) times a day if needed. (Patient not taking: Reported on 06/20/2024), Disp: , Rfl: predniSONE (Deltasone) 20 MG tablet, TAKE ONE (1) TABLET EVERY DAY BY ORAL ROUTE AFTER A MEALSFOR 30 DAYS. (Patient not taking: Reported on 06/20/2024), Disp: , Rfl: senna (Senokot) 8.8 MG/5ML syrup, Take 10 mL (17.6 mg) by mouth 2 (two) times a day. (Patient not taking: Reported on 06/20/2024), Disp: 240 mL, Rfl: 0 sulfamethoxazole-trimethoprim (Bactrim DS) 800-160 MG tablet, TAKE 1 TABLET BY MOUTH EVERY 12 HOURSFOR 10 DAYS (Patient not taking: Reported on 06/20/2024), Disp: , Rfl: Cosigned by Kyleigh Lyles MD at 07/18/2024 1:40 PM EDT Associated attestation - Kyleigh Lyles MD - 07/18/2024 1:40 PM EDT I saw and evaluated the patient with the resident/fellow. I discussed the case with the resident/fellow and agree with the findings and plan as documented. and I was present for the entirety of the procedure(s). documented in this encounter Plan of Treatment Upcoming Encounters Date Type Department Care Team (Latest Contact Info) Description 09/20/2024 11:40 AM EDT Hospital Encounter [facility] [address] [place] [phone] Kyleigh Lyles MD [address] [address] 09/20/2024 11:40 AM EDT - 09/20/2024 1:00 PM EDT Surgery [facility] [address] [place] [phone] Kyleigh Lyles MD [address] [phone] FLEXIBLE ESOPHAGOSCOPY WITH BALLOON DILATION 10/05/2024 2:00 PM EDT Office Visit [facility] [address] [facility]nd [place] [phone] Bebeto Walton MD [address] [address] 10/06/2024 10:50 AM EDT Office Visit [facility] [address] [place] [address] Kyleigh Lyles MD [address] [phone] 10/25/2024 8:00 AM EDT Hospital Encounter [facility] [address] [place] [phone] Kyleigh Lyles MD [address] [place] [phone] 10/25/2024 8:00 AM EDT - 10/25/2024 9:20 AM EDT Surgery [facility] [address] [place] [phone] Kyleigh Lyles MD [address] [address] FLEXIBLE ESOPHAGOSCOPY WITH BALLOON DILATION Scheduled Procedures Name Priority Associated Diagnoses Date/Ti me DILATION, ESOPHAGUS Dysphagia, unspecified type 09/20/2024 11:40 AM EDT DILATION, ESOPHAGUS Dysphagia, unspecified type 10/25/2024 8:00 AM EDT documented as of this encounter Goals Goal Patient Goal Type Associated Problems Recent Progress Patient-Stated? Author Autogenera kirstin Goal Care Plan Autogenerated Problem Key LeoneduaneSylvia documented as of this encounter Visit Diagnoses Diagnosis Primary tongue squamous cell carcinoma Oropharyngeal dysphagia Dysphagia, oropharyngeal phase Dysphagia, unspecified type Dysphagia, unspecified type documented in this encounter Additional Health Concerns Active Problems Noted Date Diagnosed Date Autogenerated Problem 07/19/2024 Assessment Noted Time A fall risk assessment has been complete d for the patient 06/20/2024 8:36 AM EDT A Body Mass Index follow-up plan has been documented for the patient 07/18/2024 1:40 PM EDT documented as of this encounter Care Teams Receivable Executive Relationship Specialty Start Date End Date David Capone MD [address] [place] [address] PCP - General 11/30/22 Bebeto Walton MD [address] [place] [address] Surgeon Otolaryngology 11/24/21 Gregoria Aviles MD [address] [place] [address] Referring Physician 11/02/22 Em Bell MD [address] [place] [address] [phone] Surgeon Otolaryngology 01/13/23 documented as of this encounter
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
--- OUTSIDE RECORDS SUMMARY | 2024-08-23 11:24 | XMS_ITS | Encounter Summary ---
Author Organization Healthcare Address [address] [place] [address] Care Team Providers Care Cutter Operator Tile Name Role Phone Ana Dickson MANAGER LOGISTIC Primary Care Provider Bebeto Walton MD Unavailable Gregoria Aviles MD Unavailable [phone] David Capone MD Primary Care Provider [phone] Em Bell MD Unavailable [phone] Encounter Details Date Type Department Care Team (Late st Contact Info) Description 11/12/2022 Lab Requisition [facility] [address] [place] [address] Bebeto Walton MD [address] [place] [address] Other diseases of tongue Social History Tobacco Use Types Packs/Day Years Used Date Smoking Tobacco: Former Alcohol Use Standard Drinks/Week Comments Yes 0 (1 standard drink = 0.6 oz pure alcohol) Alcoholic Drinks/day: Uses alcohol occasionally CAGE ASSESSMENT Answer Date Recorded Cage unable [...] drink first t pavan in the morning (EYE-HOUSING AND RESIDENCE LIFE DIRECTOR) to steady your nerves or to get rid of a hangover? 1 10/02/2022 CAGE Questionnaire Score 2 023 Sex and Gender Information Value Date Recorded Sex Assigned at Male 10/02/2022 9:55 AM EDT Legal Sex Male 7:41 PM EDT Gender Identity Male 10/02/2022 9:55 AM EDT Sexual Orientation Not on file documented as of this encounter Plan of Treatment Upcoming Encounters Date Type Department Care Team (Latest Contact Info) Description 09/20/2024 11:40 AM EDT Hospital Encounter [facility] [address] [place] [phone] Kyleigh Lyles MD [address] [address] 09/20/2024 11:40 AM EDT - 09/20/2024 1:00 PM EDT Surgery [facility] [address] [place] [phone] Kyleigh Lyles MD [address] [address] FLEXIBLE ESOPHAGOSCOPY WITH BALLOON DILATION 10/05/2024 2:00 PM EDT Office Visit [facility] Res[facility] 800 [facility], 2nd [place] [phone] Bebeto Walton MD [address] [address] 10/06/2024 10:50 AM EDT [facility] [address], [address]rd [place] [address] Kyleigh Lyles MD [address] [place] [address] 10/25/2024 8:00 AM EDT Hospital Encounter [facility] [address] [place] [phone] Kyleigh Lyles MD [address] [address] 10/25/2024 8:00 AM EDT - 10/25/2024 9:20 AM EDT Surgery [facility] [address] [place] [phone] Kyleigh Lyles MD [address] [address] FLEXIBLE ESOPHAGOSCOPY WITH BALLOON DILATION Scheduled Procedures Name Priority Associated Diagnoses Date/Ti me DILATION, ESOPHAGUS Dysphagia, unspecified type 09/20/2024 11:40 AM EDT DILATION, ESOPHAGUS Dysphagia, unspecified type 10/25/2024 8:00 AM EDT documented as of this encounter Procedures Procedure Name Priority Date/Time Associated Diagnosis Comments SURGICAL PATHOLOGY CONSULT Routine 11/12/2022 10:59 AM EDT Other diseases of tongue documented in this encounter Results * Surgical Pathology Consult (11/12/2022 10:59 AM EDT) Case Report Sugical Pathology Consult Case: [id number] Authorizing Provider: Bebeto Walton MD Collected: 11/12/2022 1059 Ordering Location: [facility] Lab Received: 11/12/2022 1100 Pathologist: Yang Perez MD Specimen: Tongue, [id number] 3 3:15 PM EDT [facility] Final Diagnosis A. RIGHT LATERAL TONGUE LESION, BIOPSIES (OUTSIDE CASE [id number]; COLLECTED ON 10/26/2022): - INVASIVE MODERATELY DIFFERENTIATED SQUAMOUS CELL CARCINOMA 3 3:15 PM EDT [facility] at 1515 EDT Clinical Information K14.8 - Other diseases of tongue [ICD-10-CM] 3:15 PM EDT [facility] Gross Description A. [id number] Received along with a corresponding pathology report from [facility] are 2 slide(s) and 1 block labeled outside case: [id number] collected on 10/26/2022. 3 3:15 PM EDT [facility] Intradepartmental Consultation with Agreement Dr Oksana Guevara 3:15 PM EDT [facility] Note: A resident was involved in the service. I attest I examined the relevant preparations for the specimens and confirmed the diagnosis or interpretation. 3 3:15 PM EDT [facility]ALTH[facility]ARE [facility] Tissue Tongue structure / Unknown 11/12/2022 10:59 AM EDT 11/12/2022 11:00 AM EDT us Bebeto Walton MD LAB PATHOLOGY ORDERABLES Final R esult [facility] [address] [place] [address] documented in this encounter Visit Diagnoses Diagnosis Other diseases of tongue Dysphagia, unspecified type Dysphagia, unspecified type documented in this encounter Care Teams Cutter Operator Tile Relationship Specialty Start Date End Date Ana Dickson APRN PCP - General 07/19/20 11/29/22 David Capone MD [address] [place] [address] PCP - General 11/30/22 Bebeto Walton MD [address] [place] [phone] Surgeon Otolaryngology 11/24/21 Gregoria Aviles MD [address] [phone] Referring Physician 11/02/22 Em Bell MD 800 [facility] Cancer [address] [address] Surgeon Otolaryngology 01/13/23 documented as of this encounter
--- OUTSIDE RECORDS SUMMARY | 2024-08-23 11:24 | XMS_ITS | Encounter Summary ---
Author Organization Healthcare Address [address] [place] [address] Care Team Providers Care Soaker Meat Name Role Phone Bebeto Walton MD Unavailable Gregoria Aviles MD Unavailable David Capone MD Primary Care Provider [phone] Em Bell MD Unavailable [phone] Encounter Details Date Type Department Care Team (Late st Contact Info) Description 02/15/2023 Lab Requisition [facility] [address] [place] [address] Khalif Fountain MD [address] [facility] [address] [place] [phone] Encounter for general adult medical examination without abnormal findings Social History Tobacco Use Types Packs/Day Years Used Date Smoking Tobacco: Former Cigarettes 1 35 1 981 - 2016 Smokeless Tobacco: Never Alcohol Use Standard Drinks/Week Comments Yes 0 (1 standard drink = 0.6 oz pure alcohol) Alcoholic Drinks/day: Uses alcohol occasionally Humiliation, Afraid, Rape, and Kick questionnair e [...] place to sleep or slept in a [facility] (including now)? No 02/15/2023 CAGE ASSESSMENT Answer [...] drink first t pavan in the morning (EYE-CASE PICKER) to steady your nerves or to get rid of a hangover? 1 10/02/2022 CAGE Questionnaire Score 2 023 Utilities Answer Date Recorded In the past 12 months has th [employer] electric, gas, oil, or water [employer] threatened to shut off services in your [...] 11:40 AM EDT Hospital Encounter [facility] [address] [place] [address] Kyleigh Lyles MD [address] [phone] 09/20/2024 11:40 AM EDT - 09/20/2024 1:[address] [facility] [address] [place] [address] Kyleigh Lyles MD [address] [address] FLEXIBLE ESOPHAGOSCOPY WITH BALLOON DILATION 10/05/2024 2:00 PM EDT Office Visit [facility] Res[facility] 800 [facility], [address]nd [place] [phone] Bebeto Walton MD [address] [address] 10/06/2024 10:50 AM EDT [facility] Visit [facility] [address], [address]rd [place] [address] Kyleigh Lyles MD [address] [place] [phone] 10/25/2024 8:00 AM EDT Hospital Encounter [facility] [place] [address] Kyleigh Lyles MD [address] [address] 10/25/2024 8:00 AM EDT - 10/25/2024 9:20 AM EDT Surgery PAV [facility] [address] [place] [address] Kyleigh Lyles MD [address] [address] FLEXIBLE ESOPHAGOSCOPY WITH BALLOON DILATION Scheduled Procedures Name Priority Associated Diagnoses Date/Ti me DILATION, ESOPHAGUS Dysphagia, unspecified type 09/20/2024 11:40 AM EDT DILATION, ESOPHAGUS Dysphagia, unspecified type 10/25/2024 8:00 AM EDT documented as of this encounter Procedures Procedure Name Priority Date/Time Associated Diagnosis Comments MULTI DRUG RESISTANCE TEST Routine 02/15/2023 5:26 PM EST Encounter for general adult medical examination without abnormal findings documented in this encounter Results * Multi Drug Resistance Test (02/15/2023 5:26 PM EST) Culture No Multi Drug Resistant Organisms Isolated 02/20/2023 12:58 PM EST [facility] Swab (Nares and Nimisha Rectal) 02/15/2023 5:26 PM EST 02/15/2023 6:27 PM EST us Khalif Fountain MD LAB MICROBIOLOGY - GEN ERAL ORDERABLES Final Result [facility] [address] [place] [address] documented in this encounter Visit Diagnoses Diagnosis Encounter for general adult medical examination without abnormal findings Dysphagia, unspecified type Dysphagia, unspecified type documented in this encounter Additional Health Concerns Assessment Noted Time A fall risk assessment has been complete d for the patient 12/28/2022 10:11 AM EDT A Body Mass Index follow-up plan has been documented for the patient 02/17/2023 2:53 PM EST documented as of this encounter Care Teams Soaker Meat Relationship Specialty Start Date End Date David Capone MD [address] [facility] [address] [place] [address] PCP - General 11/30/22 Bebeto Walton MD [address] [facility] [address] [place] [phone] Surgeon Otolaryngology 11/24/21 Gregoria Aviles MD [address] [place] [address] Referring Physician 11/02/22 Em Bell MD 800 [facility] Cancer [address] [address] Surgeon Otolaryngology 01/13/23 documented as of this encounter
--- OUTSIDE RECORDS SUMMARY | 2024-08-23 11:24 | XMS_ITS | CCD ---
Author Name Interface, [id number] lit Address [address] [place] [address] Organization [facility] Address [address] [place] [address] Care Team Providers Care Heddler Tier Name Role Phone Yury Jackson Unavailable Unavailable Reason for Visit Social History
--- OUTSIDE RECORDS SUMMARY | 2024-08-23 11:24 | XMS_ITS | Encounter Summary ---
Author Organization Healthcare Address [address] [place] [address] Care Team Providers Care Interior Paneler Name Role Phone Bebeto Walton MD Unavailable Gregoria Aviles MD Unavailable [phone] David Capone MD Primary Care Provider [phone] Em Bell MD Unavailable [phone] Encounter Details Date Type Department Care Team (Latest Contact Info) Description 07/18/2024 Travel Social History Tobacco Use Types Packs/Day Years [...] place to sleep or slept in a fpc (including now)? No 02/15/2023 CAGE ASSESSMENT Answer [...] drink first t pavan in the morning (EYE-BENCH HAND) to steady your nerves or to get rid of a hangover? 1 10/02/2022 CAGE Questionnaire Score 2 023 Utilities Answer Date Recorded In the past 12 months has th e [employer], gas, oil, or water company threatened to shut off services in your [...] Description 09/20/2024 11:40 AM EDT Hospital Encounter [facility] [address] [place] [phone] Kyleigh Lyles MD [address] [address] 09/20/2024 11:40 AM EDT - 09/20/2024 1:00 PM EDT Surgery [facility] [address] [place] [phone] Kyleigh Lyles MD [address] [address] FLEXIBLE ESOPHAGOSCOPY WITH BALLOON DILATION 10/05/2024 2:00 PM EDT Office Visit [facility] Res[facility] 800 [facility], 2nd [place] [phone] Bebeto Walton MD [address] [address] 10/06/2024 10:50 AM EDT Office Visit [place] [facility] Otol[facility]ology [address], 3rd [place] [address] Kyleigh Lyles MD [address] [address] 10/25/2024 8:00 AM EDT Hospital Encounter [facility] [address] [place] [address] Kyleigh Lyles MD [address] [address] 10/25/2024 8:00 AM EDT - 10/25/2024 9:20 AM EDT Surgery [facility] [address] [place] [address] Kyleigh Lyles MD [address] [phone] FLEXIBLE ESOPHAGOSCOPY WITH BALLOON DILATION Scheduled Procedures Name Priority Associated Diagnoses Date/Ti me DILATION, ESOPHAGUS Dysphagia, unspecified type 09/20/2024 11:40 AM EDT DILATION, ESOPHAGUS Dysphagia, unspecified type 10/25/2024 8:00 AM EDT documented as of this encounter Goals Goal Patient Goal Type Associated Problems Recent Progress Patient-Stated? Author Autogenera kirstin Goal Care Plan Autogenerated Problem No Amy Sylvia Eduardo documented as of this encounter Visit Diagnoses Not on filedocumented in this encounter Additional Health Concerns Active Problems Noted Date Diagnosed Date Autogenerated Problem 07/19/2024 Assessment Noted Time A fall risk assessment has been complete d for the patient 06/20/2024 8:36 AM EDT A Body Mass Index follow-up plan has been documented for the patient 07/18/2024 1:40 PM EDT documented as of this encounter Care Teams Interior Paneler Relationship Specialty Start Date End Date David Capone MD [address] [facility] [address]51 [place] [address] PCP - General 11/30/22 Bebeto Walton MD [address] [phone] Surgeon Otolaryngology 11/24/21 Gregoria Aviles MD [address] [place] [address] Referring Physician 11/02/22 Em Bell MD 800 [facility] [address] [place] [phone] Surgeon Otolaryngology 01/13/23 documented as of this encounter
--- OUTSIDE RECORDS SUMMARY | 2024-08-23 11:24 | XMS_ITS | Clinical Summary ---
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 of contrast material from the esophagusthrough the GE junction into the stomach. Other: Multiple surgical clips overlie the anterior neck. IMPRESSION: Narrowing of the neopharynx at approximately C5 measuring at smallest 5 mmin AP dimension. There was significant delay of passage of the pillthrough this narrowing. Narrowing of the gastroesophageal junction measuring approximately 5 mm insmallest diameter. Passage of the pill through the gastroesophagealjunction was not visualized during the study. EGD could be considered forfurther evaluation. CRITICAL RESULT: No. COMMUNICATION: Per this written report. By electronically signing this report, I, the attending physician, chandra I have personally reviewed the images/data for the aboveexamination(s) and agree with the final edited report. Drafted by Bert Teixeira MD on 06/16/2024 4:15 PM Final report signed by Johann Ramos MD on 06/16/2024 5:34 PM Bebeto Walton MD IMG FLUOROSCOPY PROCEDURES Final Result * XR OUTSIDE IMAGES (06/13/2024 2:28 PM EDT) Anatomical Region Laterality Modality Radiographic Treasure ging 06/13/2024 2:28 PM EDT Edward EARLY IMG XR PROCEDURES Final Result * CT OUTSIDE IMAGES (06/13/2024 2:23 PM EDT) Only the most recent of2 resultswithin the time period is included. Anatomical Region Laterality Modality Computed Tomogra phy 06/13/2024 2:23 PM EDT Edward EARLY IMG CT PROCEDURES Final Result * (ABNORMAL) Hemoglobin A1c (10/03/2022 12:11 AM EDT) Hemoglobin A1c 5.7(H) <5.7 % 10/03/2022 7:11 AM EDT [facility] Blood Venous blood specimen / Unknown Venipuncture / Unknown 10/03/2022 12:11 AM EDT 10/03/2022 12:20 AM EDT Narrative [facility] - 10/03/2022 7:11 AM EDT HA1C Interpretive Data: Diagnosis of Diabetes: Diabetic > or = 6.5% Pre-diabetic 5.7 to 6.4% Non-diabetic < or = 5.6% Glycemic Targets for Type I and Type II Diabetics: Non- Adults <7.0% Adults <6.0% Children and Adolescents <7.5% Source: [place] [employer]. Standards of medical care in diabetes,2017. Diabetes Care.2017:40 (suppl 1):S1-S135. HbA1c assay performed by an ion-exchange chromatography method that is certified traceable to the DCCT. Malachi Gomez MD LAB BLOOD ORDERABLES Final Res [facility] [address] [place] [address] from Last 3 Months or Most Recently Relevant to Health Maintenance Additional Health Concerns Active Problems Noted Date Diagnosed Date Autogenerated Problem 07/19/2024 Autogenerated Problem 07/19/2024 Insurance [facility] MEDICAID Advance Directives * Full Code (Latest Code Status on File) Date Activated Date Inactivated Comments 12/31/2023 2:15 PM 01/01/2024 12:34 PM Question Answer Comments Patient has decision-making capacity? Yes * Full Code Date Activated Date Inactivated Comments 02/12/2023 5:28 PM 02/17/2023 5:51 PM Question Answer Comments Patient has decision-making capacity? Yes * Full Code Date Activated Date Inactivated Comments 10/02/2022 10:52 AM 10/08/2022 4:42 PM Question Answer Comments Patient has decision-making capacity? Yes Care Teams Clother In Relationship Specialty Start Date End Date David Capone MD [address] [place] [address] PCP - General 11/30/22 Bebeto Walton MD 740 [facility] [address] [place] [address] Surgeon Otolaryngology 11/24/21 Gregoria Aviles MD 8 [place] [address] Referring Physician 11/02/22 Em Bell MD [address] [place] [address] Surgeon Otolaryngology 01/13/23
--- OUTSIDE RECORDS SUMMARY | 2024-08-23 11:24 | XMS_ITS | Encounter Summary ---
Author Organization Healthcare Address [address] [place] [address] Care Team Providers Care Mill Roll Rewinder Name Role Phone Bebeto Walton MD Unavailable Gregoria Aviles MD Unavailable [phone] David Capone MD Primary Care Provider [phone] Em Bell MD Unavailable [phone] Reason for Visit * Reason Comments Resource Navigation Encounter Details Date Type Department Care Team (Late st Contact Info) Description 07/12/2024 Social Work Psych Oncology [address] [place] [address] Priyanka Mayorga Social History Tobacco Use Types Packs/Day Years [...] place to sleep or slept in a assisted (including now)? 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 CSWwas able to schedule medicaid transportation for 07/18 with 745AM brass pickler time (confirmation [id number]). Domonique was appreciative for the assistance and denied additional questions or needs at this time. EXTRACT OPERATOR encouraged her to follow up should additional needs arise. EXTRACT OPERATOR remains available ongoing prn. Priyanka Mayorga CLAIMS COORDINATOR, EXTRACT OPERATOR [phone] documented in this encounter Plan of Treatment Upcoming Encounters Date Type Department Care Team (Latest Contact Info) Description 09/20/2024 11:40 AM EDT Hospital Encounter [facility] [address] [place] [address] Kyleigh Lyles MD [address] [address] 09/20/2024 11:40 AM EDT - 09/20/2024 1:00 PM EDT Surgery [facility] [address] [place] [address] Kyleigh Lyles MD [address] [address] FLEXIBLE ESOPHAGOSCOPY WITH BALLOON DILATION 10/05/2024 2:00 PM EDT Office Visit [facility] 800 [facility], 2nd [place] [phone] Bebeto Walton MD [address] [address] 10/06/2024 10:50 AM EDT [facility] Visit [facility] [address], [address]rd [place] [address] Kyleigh Lyles MD [address] [address] 10/25/2024 8:00 AM EDT Hospital Encounter [facility] [address] [place] [phone] Kyleigh Lyles MD [address] [address] 10/25/2024 8:00 AM EDT - 10/25/2024 9:20 AM EDT Surgery [facility] [address] [place] [phone] Kyleigh Lyles MD [address] [address] FLEXIBLE ESOPHAGOSCOPY WITH BALLOON DILATION Scheduled Procedures Name Priority Associated Diagnoses Date/Ti me DILATION, ESOPHAGUS Dysphagia, unspecified type 09/20/2024 11:40 AM EDT DILATION, ESOPHAGUS Dysphagia, unspecified type 10/25/2024 8:00 AM EDT documented as of this encounter Visit Diagnoses Not on filedocumented in this encounter Additional Health Concerns Assessment Noted Time A fall risk assessment has been complete d for the patient 06/20/2024 8:36 AM EDT A Body Mass Index follow-up plan has been documented for the patient 06/20/2024 8:56 AM EDT documented as of this encounter Care Teams Mill Roll Rewinder Relationship Specialty Start Date End Date David Capone MD [address] [place] [address] PCP - General 11/30/22 Bebeto Walton MD [facility] [address] [place] [address] Surgeon Otolaryngology 11/24/21 Gregoria Aviles MD 8 [place] [address] Referring Physician 11/02/22 Em Bell MD [address] [address] Surgeon Otolaryngology 01/13/23 documented as of this encounter
--- OUTSIDE RECORDS SUMMARY | 2024-08-23 11:24 | XMS_ITS | Encounter Summary ---
Author Organization Healthcare Address [address] [place] [address] Care Team Providers Care Diamond Selector Name Role Phone Ana Dickson BIOLOGY SPECIMEN TECHNICIAN Primary Care Provider [phone] Bebeto Walton MD Unavailable Gregoria Aviles MD Unavailable [phone] David Capone MD Primary Care Provider [phone] Em Bell MD Unavailable [phone] Encounter Details Date Type Department Care Team (Late st Contact Info) Description 01/25/2017 Orders Only External Location 800 [place] [phone] Provider, External Social History Tobacco Use Types Packs/Day Years Used Date Smoking Tobacco: Never Assessed Sex and Gender Information Value Date Recorded [...] [facility] 800 [place] [phone] Kyleigh Lyles MD [address] [facility] [address] [place] [address] 09/20/2024 11:40 AM EDT - 09/20/2024 1:00 PM EDT Surgery [facility] 800 [place] [address] Kyleigh Lyles MD [address] [place] [address] FLEXIBLE ESOPHAGOSCOPY WITH BALLOON DILATION 10/05/2024 2:00 PM EDT Office Visit [facility] Res[facility] 800 [facility], [address]nd [place] [address] Bebeto Walton MD [address] [address] 10/06/2024 10:50 AM EDT Office Visit [facility] Ot[facility] [address], [address]rd [place] [address] Kyleigh Lyles MD [address] [place] [address] 10/25/2024 8:00 AM EDT Hospital Encounter [facility] [address] [place] [phone] Kyleigh Lyles MD [address] [address] 10/25/2024 8:00 AM EDT - 10/25/2024 9:20 AM EDT Surgery [facility] [address] [place] [address] Kyleigh Lyles MD [address] [place] [address] FLEXIBLE ESOPHAGOSCOPY WITH BALLOON DILATION Scheduled Procedures Name Priority Associated Diagnoses Date/Ti me DILATION, ESOPHAGUS Dysphagia, unspecified type 09/20/2024 11:40 AM EDT DILATION, ESOPHAGUS Dysphagia, unspecified type 10/25/2024 8:00 AM EDT documented as of this encounter Procedures Procedure Name Priority Date/Time Associated Diagnosis Comments XR OUTSIDE IMAGES 01/25/2017 2:26 PM EST documented in this encounter Results * XR OUTSIDE IMAGES (01/25/2017 2:26 PM EST) Anatomical Region Laterality Modality Radiographic Treasure ging 01/25/2017 2:26 PM EST us External Provider IMG XR PROCEDURES Final Result documented in this encounter Visit Diagnoses Not on filedocumented in this encounter Care Teams Diamond Selector Relationship Specialty Start Date End Date Ana Dickson APRN PCP - General 07/19/20 11/29/22 David Capone MD 1551 [facility] [address] [place] [address] PCP - General 11/30/22 Bebeto Walton MD 740 [facility] [address] [place] [address] Surgeon Otolaryngology 11/24/21 Gregoria Aviles MD 8 [place] [address] Referring Physician 11/02/22 Em Bell MD 800 [facility] [address] [address] Surgeon Otolaryngology 01/13/23 documented as of this encounter
--- OUTSIDE RECORDS SUMMARY | 2024-08-23 11:24 | XMS_ITS | Encounter Summary ---
Author Organization Healthcare Address [address] [place] [address] Care Team Providers Care Mechanical Service Technician Name Role Phone Ana Dickson CAD ADMINISTRATOR Primary Care Provider Bebeto Walton MD Unavailable Gregoria Aviles MD Unavailable [phone] David Capone MD Primary Care Provider [phone] Em Bell MD Unavailable [phone] Encounter Details Date Type Department Care Team (Late st Contact Info) Description 10/05/2022 Lab Requisition [facility] 800 [place] [address] Yajaira Pisano MD [address] [address] Encounter for general adult medical examination without [...] drink first t pavan in the morning (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 1 10/02/2022 CAGE Questionnaire Score 2 023 Sex and Gender Information Value Date Recorded Sex Assigned at Male 10/02/2022 9:55 AM EDT Legal Sex Male 7:41 PM EDT Gender Identity Male 10/02/2022 9:55 AM EDT Sexual Orientation Not on file documented as of this encounter Functional Status * Calculated C-SSRS Risk Score (Lifetime/Recent) Answer Date of Assessment Author No Risk Indicated 10/08/2022 8:00 AM EDT Marlene Eugene RN * Question Answer Date of Assessment Author 1. Wish to be (Past 1 Month) No 023 8:00 AM EDT Marlene Eugene RN 2. Non-Specific Active Suici corbin Thoughts (Past 1 Month) No 10/08/2022 8:00 AM EDT Marlene Eugene RN 6. Suicidal Behavior (Lifetime) No 8:00 AM EDT Marlene Eugene RN documented as of this encounter Plan of Treatment Upcoming Encounters Date Type Department Care Team (Latest Contact Info) Description 09/20/2024 11:40 AM EDT Hospital Encounter [facility] [address] [place] [phone] Kyleigh Lyles MD [address] [place] [phone] 09/20/2024 11:40 AM EDT - 09/20/2024 1:00 PM EDT Surgery [facility] [address] [place] [phone] Kyleigh Lyles MD [address] [place] [address] FLEXIBLE ESOPHAGOSCOPY WITH BALLOON DILATION 10/05/2024 2:00 PM EDT Office Visit [facility] Res[facility] 800 [facility], 2nd [place] [phone] Bebeto Walton MD [address] [place] [phone] 10/06/2024 10:50 AM EDT Office Visit [place] [facility] Otolaryngology [address], [address]rd [place] [phone] Kyleigh Lyles MD [address] [phone] 10/25/2024 8:00 AM EDT Hospital Encounter [facility] [address] [place] [address] Kyleigh Lyles MD [address] [address] 10/25/2024 8:00 AM EDT - 10/25/2024 9:20 AM EDT Surgery [facility] [address] [place] [address] Kyleigh Lyles MD [address] [address] FLEXIBLE ESOPHAGOSCOPY WITH BALLOON DILATION Scheduled Procedures Name Priority Associated Diagnoses Date/Ti me DILATION, ESOPHAGUS Dysphagia, unspecified type 09/20/2024 11:40 AM EDT DILATION, ESOPHAGUS Dysphagia, unspecified type 10/25/2024 8:00 AM EDT documented as of this encounter Procedures Procedure Name Priority Date/Time Associated Diagnosis Comments MULTI DRUG RESISTANCE TEST Routine 10/05/2022 12:00 PM EDT Encounter for general adult medical examination without abnormal findings documented in this encounter Results * Multi Drug Resistance Test (10/05/2022 12:00 PM EDT) Culture No Multi Drug Resistant Organisms Isolated 10/07/2022 9:06 AM EDT [facility] Swab (Nares and Nimisha Rectal) 10/05/2022 12:00 PM EDT 10/05/2022 5:45 PM EDT Yajaira Alberto MD LAB MICROBIOLOGY - GENERAL ORDERABLES Final Result [facility] [address] [place] [address] documented in this encounter Visit Diagnoses Diagnosis Encounter for general adult medical examination without abnormal findings Dysphagia, unspecified type Dysphagia, unspecified type documented in this encounter Care Teams Mechanical Service Technician Relationship Specialty Start Date End Date Ana Dickson APRN PCP - General 07/19/20 11/29/22 David Capone MD 1551 [facility] [address]51 [place] [address] PCP - General 11/30/22 Bebeto Walton MD [address] [place] [address] Surgeon Otolaryngology 11/24/21 Gregoria Aviles MD 8 [place] [address] Referring Physician 11/02/22 Em Bell MD [address] [address] Surgeon Otolaryngology 01/13/23 documented as of this encounter
--- OUTSIDE RECORDS SUMMARY | 2024-08-23 11:24 | XMS_ITS | Encounter Summary ---
Author Organization Healthcare Address [address] [place] [address] Care Team Providers Care Food Service Order Clerk Name Role Phone Ana Dickson STEWARD/STEWARDESS NIGHT Primary Care Provider [phone] Bebeto Walton MD Unavailable Gregoria Aviles MD Unavailable [phone] David Capone MD Primary Care Provider [phone] Em Bell MD Unavailable [phone] Encounter Details Date Type Department Care Team (Late st Contact Info) Description 07/05/2022 Lab Requisition [facility] [address] [place] [address] Lisa Michaud MD [address] [place] [address] Unspecified general medical examination Social History Tobacco Use Types Packs/Day Years Used Date Smoking Tobacco: Former Alcohol Use Standard Drinks/Week Comments Yes 0 (1 standard drink = 0.6 oz pure alcohol) Alcoholic Drinks/day: Uses alcohol occasionally Sex and Gender Information Value Date Recorded Sex Assigned at Male 10/02/2022 9:55 AM EDT Legal Sex Male 7:41 PM EDT Gender Identity Male 10/02/2022 9:55 AM EDT Sexual Orientation Not on file COVID-19 Exposure Response Date Recorded In the last 10 days, have yo u been in contact with someone who was confirmed or suspected to have Coronavirus/COVID-19? No / Unsure 07/01/2022 12:31 PM EDT documented as of this encounter Functional Status * Calculated C-SSRS Risk Score (Lifetime/Recent) Answer Date of Assessment Author No Risk Indicated 07/08/2022 7:53 AM EDT Bibi Morton RN * Question Answer Date of Assessment Author 1. Wish to be (Past 1 Month) No 07/08/2022 7:53 AM EDT Elizabeth Iverson, RAJ 2. Non-Specific Active Suicidal Thoughts (Past 1 Month) No 07/08/2022 7:53 AM EDT Elizabeth Iverson, RAJ 6. Suicidal Behavior (Lifetime) No 07/08/2022 7:53 AM EDT Elizabeth Iverson RN documented as of this encounter Plan of Treatment Upcoming Encounters Date Type Department Care Team (Latest Contact Info) Description 09/20/2024 11:40 AM EDT Hospital Encounter [facility] [address] [place] [phone] Kyleigh Lyles MD [address] [place] [address] 09/20/2024 11:40 AM EDT - 09/20/2024 1:00 PM EDT Surgery [facility] [address] [place] [phone] Kyleigh Lyles MD [address] [place] [phone] FLEXIBLE ESOPHAGOSCOPY WITH BALLOON DILATION 10/05/2024 2:00 PM EDT Office Visit Pav [facility] Res[facility] 800 [facility], 2nd [place] [phone] Bebeto Walton MD [address] [place] [address] 10/06/2024 10:50 AM EDT Office Visit [place] [facility] [address], [address]rd [place] [address] Kyleigh Lyles MD [address] [phone] 10/25/2024 8:00 AM EDT Hospital Encounter [facility] [address] [place] [address] Kyleigh Lyles MD [address] [address] 10/25/2024 8:00 AM EDT - 10/25/2024 9:20 AM EDT Surgery P[facility] [address] [place] [phone] Kyleigh Lyles MD [address] [address] FLEXIBLE ESOPHAGOSCOPY WITH BALLOON DILATION Scheduled Procedures Name Priority Associated Diagnoses Date/Ti me DILATION, ESOPHAGUS Dysphagia, unspecified type 09/20/2024 11:40 AM EDT DILATION, ESOPHAGUS Dysphagia, unspecified type 10/25/2024 8:00 AM EDT documented as of this encounter Procedures Procedure Name Priority Date/Time Associated Diagnosis Comments ZZZBLOODBORNE EXPOSURE PANEL Routine 07/05/2022 2:21 PM EDT Unspecified general medical examination [ICD-10-CM] documented in this encounter Results * Bloodborne Exposure Panel (07/05/2022 2:21 PM EDT) Hepatitis B Surf Antigen Negative Negative 07/05/2022 3:25 PM EDT [facility] Hepatitis C Antibody Negative Negative 07/05/2022 3:25 PM EDT [facility] HIV 1 & 2 Antibody/Antigen Screen Non Reactive Non Reactive 07/05/2022 3:25 PM EDT [facility] Comment:Screening for HIV 1 & 2 antibodies, and P24 antigen is NONREACTIVE. No confirmatory testing is required. Blood Venous blood specimen / Unknown 07/05/2022 2:21 PM EDT 07/05/2022 2:21 PM EDT us Lisa Michaud MD LAB BLOOD ORDERABLES Final Resul t [facility] [address] [place] [address] documented in this encounter Visit Diagnoses Diagnosis Unspecified general medical examination Dysphagia, unspecified type Dysphagia, unspecified type documented in this encounter Care Teams Food Service Order Clerk Relationship Specialty Start Date End Date Ana Dickson APRN PCP - General 07/19/20 11/29/22 David Capone MD 1551 [facility] 1551 [place] [address] PCP - General 11/30/22 Bebeto Walton MD 740 [address] [facility] [address] [place] [address] Surgeon Otolaryngology 11/24/21 Gregoria Aviles MD 8 [place] [address] Referring Physician 11/02/22 Em Bell MD 800 [facility] [address] [address] Surgeon Otolaryngology 01/13/23 documented as of this encounter
--- NOTE | 2024-08-23 11:42 | EXP.PAIN.SOA ---
[facility] Disclaimer: The information contained in this section may have been updated after the patient was seen, as this information can be updated by other users. Medical History Anxiety Alcoholism Hypothyroidism Larynx cancer Surgical History H/O abdominal surgery H/O thyroidectomy H/O laryngectomy Family History Sister Breast cancer Social History Smoking Status: Unknown if ever smoked alcohol intake: former current occupational status: disabled Travel in the last 8 weeks?: None PM Subjective & Objective Subjective Subjective:: Patient is a pleasant 59-year-old male who presents today for a monthly follow-up. Today he does rate his pain a 9 out of 10. Patient states he has been recently hospitalized for thrush and pneumonia. Patient is still trying to recover from all of this. Patient does state due to that he has had increased pain. He is currently managed with [place] 10 mg 3 times a day from our office. Patient is asking if we can make some adjustments to this due to the worsening pain. His Ezra has been reviewed and is appropriate. Review of Systems: General: No recent weight changes, no fever, no sleep disturbances Respiratory: No cough, no shortness of air, no recurring pulmonary infections Cardiovascular/peripheral vascular: No chest pain, no palpitations, no edema, no shortness of breath Gastrointestinal: No new onset incontinence, normal bowel movements reported Genitourinary: No new onset incontinence Musculoskeletal: Neck pain Psychiatric: [Normal mood/affect] Neurological: [Denies weakness in extremities], [denies balance issues] Pain at rest (0-10 scale): 9 Objective Objective:: Physical Exam: General: Alert and oriented x3, no acute distress, pleasant and cooperative Lungs: Respirations even and unlabored, symmetrical chest expansion Eyes: PERRL Musculoskeletal: Flexion and extension of cervical [spine] somewhat guarded secondary to pain, [antalgic gait noted] Neurological: Speech clear, no gross sensory deficit Has patient had previous pain injection?: No Conservative treatment options previously tried: Home exercise plan Length of treatment: Longer than 12 weeks Meds Home Medications and Allergies Home Medications ?Medication ?Instructions ?Recorded ?Confirmed ?Type clonazepam 0.5 mg tablet 0.5 mg PO BID 01/27/24 07/06/24 History levothyroxine 137 mcg tablet 137 mcg PO AM 01/27/24 07/06/24 History hydrocodone 10 mg-acetaminophen 1 tab PO TID #90 tabs 07/06/24 Rx 325 mg tablet doxycycline hyclate 100 mg tablet 100 mg PO BID 7 days #14 tabs 07/14/24 Rx furosemide 20 mg tablet (Lasix) 20 mg PO DAILY 1 week #7 tabs 07/14/24 Rx prednisone 20 mg tablet 40 mg (2 x 20 mg) PO DAILY 5 days 07/14/24 Rx #10 tabs New Prescriptions to Start Prescriptions: Allergies Allergy/AdvReac Type Severity Reaction Status Date / Time gabapentin Allergy Unknown Verified 01/27/24 17:51 allergy reaction tramadol Allergy Unknown Verified 01/27/24 17:51 allergy reaction Assessment and Plan *Assessment and plan (1) Neck pain: Status: Acute Category: Medical Code(s): M54.2 - Cervicalgia (2) Cancer: Status: Acute Category: Medical Code(s): C80.1 - Malignant (primary) neoplasm, unspecified (3) Cervical radiculopathy: Status: Acute Category: Medical Code(s): M54.12 - Radiculopathy, cervical region Plan At this time we are not able to increase his current medications. Patient will be sent in a 1 month supply of the [place] 10 mg 3 times a day. Patient will return to clinic in 1 month for reevaluation of symptoms and plan of care. Risks and benefits of the medication have been explained in detail to the patient. The patient does understand the risk of dependence on the medication when given over a prolonged period. Patient has been advised of risks of oversedation with the prescribed medication. Narcan has been offered to the paitent in the event of oversedation. Patient has been advised that a family member should also be educated regarding administration of Narcan. The patient has been advised to consult with his/her primary care provider and pharmacist regarding drug-drug interaction of medications currently prescribed. Patient has been prescribed a controlled substance after being counseled on the medication, medication safety, and possible side effects. Opioid contract was reviewed and signed by the patient, and that they have agreed to all of the terms set forth by our compliance program. A UDS is needed to verify patient's compliance with our office pain contract. This is ordered based off specific treatments related to chronic pain with the potential to abuse certain medications. Patient has been instructed to contact the clinic with any concerns before the next appointment. Dr. Mccrary has reviewed this note and agrees with this plan of care. This note was dictated using voice recognition software and make contain errors or omissions.
[2024-08-23 11:48] VITALS: BP 130/73; PULSE 99; RESP 18; O2SAT 95; BMI 23.5
== END 2024-08-23 23:59 | disposition home or self-care (01) ==
PROVIDERS: PCP Nurse Practitioner Family; Visit Provider Nurse Practitioner Family
DX: M54.12 Radiculopathy, cervical region (principal); C80.1 Malignant (primary) neoplasm, unspecified; Z79.891 Long term (current) use of opiate analgesic
CPT/HCPCS: 99212; G0463

== ENCOUNTER 2024-09-21 14:07 | Outpatient (POV) | payer MEDICAID, SELFPAY ==
--- OUTSIDE RECORDS SUMMARY | 2022-07-22 13:08 | XMS_ITS | Continuity of Care Document ---
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 [place], [address], tel:[phone] [facility] No Information 3 Darren Mercedes. [address], [place], [id number], [place]. tel:[phone] Family History Family Member Type Diagnosis Age At Onset No Information Payers Payer name Insurance type Covered alliance party ID Authoriza tion(s) No Information Social History Type Description Quantity Date Captured Comments Sex Male Smoking Status No Information Chief Complaint And Reason For Visit No Information Reason For Referral Reason For Referral No Information History Of Present Illness Encounter Date Complaint History Of Prese nt Illness No Information Functional Status Date Functional Assessmen t No Information Instructions Date Instruction Additional Infor mation No Information Assessments Type Assessment Date No Information Patient Care Teams Name Effective Dates (start - stop) Status Members No Information
--- OUTSIDE RECORDS SUMMARY | 2024-09-20 08:43 | XMS_ITS | Encounter Summary ---
Author Organization Healthcare Address [address] [place] [address] Care Team Providers Care Fence Manufacture Supervisor Name Role Phone Bebeto Walton MD Unavailable Gregoria Aviles MD Unavailable [phone] David Capone MD Primary Care Provider [phone] Em Bell MD Unavailable [phone] Reason for Visit * Auth/Cert (Routine) Specialty Diagnoses / Procedures Referred By Contac t Referred To Contact Diagnoses Dysphagia, unspecified type Dysphagia, unspecified type [R13.10] Procedures CA ESOPHAGOSCOPY FLEXIBLE TRANSORAL DIAGNOSTIC CA ESOPHAGOSCOPY FLEXIBLE TRANSORAL W SUBMUCOUS INJ CA ESOPHAGOSCOPY FLEX BALLOON DILAT <30 MM DIAM FLEXIBLE ESOPHAGOSCOPY WITH BALLOON DILATION Kyleigh Lyles MD [address] [facility] [address] [place] [address] Phone: tel: fax: [facility] [address] [place] [address] Phone: tel: Referral ID Status Reason Start Date Expiration Date Visits Re quested Visits Authorized [id number] 1 1 Encounter Details Date Type Department Care Team (Latest Contact Info) Description 09/20/2024 8:43 AM EDT - 09/20/2024 11:47 AM EDT Hospital Encounter [facility] [address] [place] [address] Kyleigh Lyles MD [address] [place] [address] Discharge Disposition: Home or Self Care Social [...] drink first t pavan in the morning (EYE-LAY OUT FORMER) to steady your nerves or to get rid of a hangover? 1 10/02/2022 CAGE Questionnaire Score 2 023 Utilities Answer Date Recorded In the past 12 months has th [employer], gas, oil, or water [employer] threatened to shut off services in your [...] a day. 100 mL 01/01/2024 HYDROcodone-acetami nophen ([place]ston) 10-325 MG tablet TAKE ONE TABLET BY [...] 59 y.o. 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 Lombardi ANESTHESIA: General ASA: III OR TEAM: Anesthesiologist: Dirk Garcia MD BUS AND SYS INTEGRATION SENIOR MANAGER: Alexsander Eric CRNA Laminator Printed Circuit Boards: Mary Mishra Relief Laminator Printed Circuit Boards: Ruchi Ramírez RN Scrub Person: Rima Potter [...] He underwent adjuvant radiation therapy completed in [place] on 04/01/2017. He was found to have [...] 06/20/2024), Disp: 100 mL, Rfl: 0 HYDROcodone-acetaminophen (Winston) 10-325 MG tablet, TAKE ONE TABLET BY [...] pharyngoscopy INDICATION: Dysphagia PROVIDER: Kyleigh Lyles MD Tank Riveter: Milli ANESTHESIA: Local (lidocaine with afrin) PROCEDURE [...] disintegrating tablet Take morning of surgery HYDROcodone-acetaminophen (Winston) 10-325 MG tablet Take morning of surgery [...] card, photo ID, along with power of trial attorney, guardianship or advanced directives if applicable Do [...] History: Procedure Laterality Date EXPLORATORY LAPAROTOMY 06/27/2022 ([facility]) EXPLORATORY LAPAROTOMY 10/02/2022 ([facility]) OTHER SURGICAL HISTORY N/A Direct Laryngoscopy With Biopsy from [employer] OTHER SURGICAL HISTORY N/A [facility] larynx from [facility] TOTAL LARYNGECTOMY N/A Total Laryngectomy from [employer] [...] Department Care Team (Latest Contact Info) Description 10/05/2024 2:00 PM EDT Office Visit [facility] [address] [facility], [address]nd [place] [phone] Bebeto Walton MD [address] [phone] 10/06/2024 10:50 AM EDT [facility] Visit [facility] [address], [address] [place] [address] Kyleigh Lyles MD [address] [phone] 10/25/2024 8:00 AM EDT Hospital Encounter [facility] [address] [place] [phone] Kyleigh Lyles MD [address] [facility] [address] [place] [address] 10/25/2024 8:00 AM EDT - 10/25/2024 9:20 AM EDT Surgery [facility] [address] [place] [address] Kyleigh Lyles MD [address] [facility] [place] [address] FLEXIBLE ESOPHAGOSCOPY WITH BALLOON DILATION 11/13/2024 3:00 PM EDT Office Visit [facility] [address], [address] [place] [address] Kyleigh Lyles MD [id number] [place] [address] Scheduled Procedures Name Priority Associated Diagnoses Date/Ti me DILATION, ESOPHAGUS Dysphagia, unspecified type 10/25/2024 8:00 AM EDT documented as of this encounter Goals Goal Patient Goal Type Associated Problems Recent Progress Patient-Stated? Author Autogenera kirstin Goal Care Plan Autogenerated Problem No Sylvia [...] (New Bag - Prov ider: Alexsander Eric, BUS AND SYS INTEGRATION SENIOR MANAGER) lactated Ringer's infusion 20 mL/hr, Intravenous, Once, [...] documented as of this encounter Care Teams Fence Manufacture Supervisor Relationship Specialty Start Date End Date David Capone MD [address] [facility] [address] [place] [address] PCP - General 11/30/22 Bebeto Walton MD [address] [phone] Surgeon Otolaryngology 11/24/21 Gregoria Aviles MD [address] [place] [address] Referring Physician 11/02/22 Em Bell MD [address] [place] [address] [phone] Surgeon Otolaryngology 01/13/23 documented as of this encounter
--- OUTSIDE RECORDS SUMMARY | 2024-09-20 09:59 | XMS_ITS | Encounter Summary ---
Author Organization Healthcare Address [address] [place] [address] Care Team Providers Care Aquatics Manager Name Role Phone Bebeto Walton MD Unavailable Gregoria Aviles MD Unavailable [phone] David Capone MD Primary Care Provider [phone] Em Bell MD Unavailable [phone] Reason for Visit * Auth/Cert (Routine) Specialty Diagnoses / Procedures Referred By Contac t Referred To Contact Diagnoses Dysphagia, unspecified type Dysphagia, unspecified type [R13.10] Procedures IL ESOPHAGOSCOPY FLEXIBLE TRANSORAL DIAGNOSTIC IL ESOPHAGOSCOPY FLEXIBLE TRANSORAL W SUBMUCOUS INJ IL ESOPHAGOSCOPY FLEX BALLOON DILAT <30 MM DIAM FLEXIBLE ESOPHAGOSCOPY WITH BALLOON DILATION Kyleigh Lyles MD [address] [facility] [address] [place] [address] Phone: tel: fax: [facility] [address] [place] [address] Phone: tel: Referral ID Status Reason Start Date Expiration Date Visits Re quested Visits Authorized [id number] 1 1 Encounter Details Date Type Department Care Team (Late st Contact Info) Description 09/20/2024 9:59 AM EDT Anesthesia Event [facility] [address] [place] [address] Dirk Garcia MD [address] [place] [address] Anesthesia Record Procedure Summary Procedure Name Responsible [...] sounds, Positive CO2, Atraumatic Dentition; Placed by: SECURITY OPERATIONS ANALYST; Removal Date: 09/20/24; Removal Time: 1029 09/20/24 [...] place to sleep or slept in a long-term (including now)? No 02/15/2023 CAGE ASSESSMENT Answer [...] drink first t pavan in the morning (EYE-PAINTER SHIPYARD) to steady your nerves or to get rid of a hangover? 1 10/02/2022 CAGE Questionnaire Score 2 023 Utilities Answer Date Recorded In the past 12 months has th e [employer], gas, oil, or water company threatened to [...] and Staff Patient location during procedure: OR SECURITY OPERATIONS ANALYST: Alexsander Eric CRNA Performed: SECURITY OPERATIONS ANALYST Patient Condition Indications for airway management: anesthesia [...] 9:22 AM EDT Anesthesiologist: Dirk Garcia MD SECURITY OPERATIONS ANALYST: Alexsander Eric CRNA Concrete Pipe Making Machine Operator: (Unknown) Patient: Anupam Metz Jr. HPI Anupam [...] FLEXIBLE ESOPHAGOSCOPY WITH BALLOON DILATION (Bilateral) Location: [facility] Surgeons: Kyleigh Lyles [...] 100 mg, Oral, 2 times daily HYDROcodone-acetaminophen ([place]) 10-325 MG tablet TAKE ONE TABLET BY [...] Component Value Date PHART 7.27 (L) 06/27/2022 [id number] 46 06/27/2022 PO2ART 194 (H) 06/27/2022 SO2ART 100 (H) 06/27/2022 BEART -5.6 (L) 06/27/2022 [id number] 24 02/12/2023 HCTART 26.0 (L) 06/27/2022 SODIUMART 137 06/27/2022 POTASSIUMART 4.6 06/27/2022 POCTCL 107 06/27/2022 POCGLU 147 (H) 06/27/2022 IONCALART 3.8 (L) 06/27/2022 LACTATE 0.9 02/12/2023 Lab Results Component Value Date PH 7.36 02/12/2023 PCO2 42 02/12/2023 PO2 218 (H) 02/12/2023 [id number] 100 (H) 02/12/2023 BASEEXC -1.7 02/12/2023 HCTSYR 23.5 (L) 02/12/2023 KSYR 4.4 02/12/2023 CLSYR 105 02/12/2023 GLUSYR 129 (H) 02/12/2023 CAION 4.3 (L) 02/15/2023 LACTATE 0.9 02/12/2023 ECHO No echocardiogram results found for the past 12 months PFTs No results found for: VPF8RYB , NER1WRUA , CAF9REZ , FVCPRED BP Readings from Last 5 [...] Plan ASA 3 Plan was reviewed with: SECURITY OPERATIONS ANALYST Anesthesia technique(s) discussed with the patient/family: general [...] History: Procedure Laterality Date EXPLORATORY LAPAROTOMY 06/27/2022 ([facility]) EXPLORATORY LAPAROTOMY 10/02/2022 ([facility]) OTHER SURGICAL HISTORY N/A Direct Laryngoscopy With Biopsy from [facility] OTHER SURGICAL HISTORY N/A Biopsy of larynx from [facility] TOTAL LARYNGECTOMY N/A Total Laryngectomy from [facility] [...] Description 10/05/2024 2:00 PM EDT Office Visit [facility] 800 [facility], 2nd [place] [phone] Bebeto Walton MD [address] [address] 10/06/2024 10:50 AM EDT [facility] [address], [address]rd [place] [address] Kyleigh Lyles MD [address] [place] [address] 10/25/2024 8:00 AM EDT Hospital Encounter [facility] [address] [place] [phone] Kyleigh Lyles MD [address] [place] [address] 10/25/2024 8:00 AM EDT - 10/25/2024 9:20 AM EDT Surgery [facility] [address] [place] [address] Kyleigh Lyles MD [address] [facility] [address] [place] [address] FLEXIBLE ESOPHAGOSCOPY WITH BALLOON DILATION 11/13/2024 3:00 PM EDT Office Visit [facility] Otolaryngology [address], 3rd [place] [address] Kyleigh Lyles MD [phone] [place] [address] Scheduled Procedures Name Priority Associated Diagnoses Date/Ti me DILATION, ESOPHAGUS Dysphagia, unspecified type 10/25/2024 8:00 AM EDT documented as of this encounter Goals Goal Patient Goal Type Associated Problems Recent Progress Patient-Stated? Author Autovirgie fulton Goal Care Plan Autogenerated Problem No Sylvia Reyes Autovirgie fulton Goal Care Plan Autogenerated Problem No Sylvia Reyes documented as of this encounter Procedures Procedure Name Priority Date/Time Associated Diagnosis Comments PB ANESTHESIA PLACEHOLDER Routine 09/20/2024 10:08 AM EDT IL AN ELECTIVE ENDOTRACHEAL AIRWAY Routine 09/20/2024 10:08 AM EDT documented in this encounter Results * IL AN ELECTIVE ENDOTRACHEAL AIRWAY, PB ANESTHESIA PLACEHOLDER (09/20/2024 10:08 AM EDT) Narrative Alexsander Eric CRNA - 09/20/2024 10:08 AM EDT Alexsander Eric CRNA 09/20/2024 10:18 AM Airway Date/Time: 09/20/2024 10:08 AM Reason: elective Airway not difficult General Information and Staff Patient location during procedure: OR SECURITY OPERATIONS ANALYST: Alexsander Eric CRNA Performed: SECURITY OPERATIONS ANALYST Patient Condition Indications for airway management: anesthesia [...] documented as of this encounter Care Teams Aquatics Manager Relationship Specialty Start Date End Date David Capone MD [address] [facility] [address] [place] [address] PCP - General 11/30/22 Bebeto Walton MD 7[address] [facility] [address] [place] [address] Surgeon Otolaryngology 11/24/21 Gregoria Aviles MD [address] [place], [place] [phone] Referring Physician 11/02/22 Em Bell MD [address] [address] Surgeon Otolaryngology 01/13/23 documented as of this encounter
--- OUTSIDE RECORDS SUMMARY | 2024-09-20 10:10 | XMS_ITS | Encounter Summary ---
Author Organization Healthcare Address [address] [place] [address] Care Team Providers Care Media Theorist And Author Of Name Role Phone Bebeto Walton MD Unavailable Gregoria Aviles MD Unavailable [phone] David Capone MD Primary Care Provider [phone] Em Bell MD Unavailable [phone] Reason for Visit * Auth/Cert (Routine) Specialty Diagnoses / Procedures Referred By Contac t Referred To Contact Diagnoses Dysphagia, unspecified type Dysphagia, unspecified type [R13.10] Procedures IN ESOPHAGOSCOPY FLEXIBLE TRANSORAL DIAGNOSTIC IN ESOPHAGOSCOPY FLEXIBLE TRANSORAL W SUBMUCOUS INJ IN ESOPHAGOSCOPY FLEX BALLOON DILAT <30 MM DIAM FLEXIBLE ESOPHAGOSCOPY WITH BALLOON DILATION Kyleigh Lyles MD [address] [facility] [address] [place] [address] Phone: tel: fax: [facility] [address] [place] [address] Phone: tel: Referral ID Status Reason Start Date Expiration Date Visits Re quested Visits Authorized [id number] 1 1 Encounter Details Date Type Department Care Team (Late st Contact Info) Description 09/20/2024 10:10 AM EDT - 09/20/2024 11:20 AM EDT Surgery [facility] [address] [place] [address] Kyleigh Lyles MD [address] [place] [address] FLEXIBLE ESOPHAGOSCOPY WITH BALLOON DILATION Surgery Details Date/Time Status Location OR Service Patient Class Case Class Case Type Trauma Case? 09/20/2024 10:10 AM Posted [facility] OR [id number] [facility] Outpatient Surgery E-Electiv e Panel 1 Procedure LRB Anes Op Region Wound Class Comments FLEXIBLE ESOPHAGOSCOPY WITH BALLOON DILATION Bilateral General Surgeon Surgeon Role Service Panel Kyleigh Lyles MD Primary ENT 1 Juan Lombardi MD Resident - Assisting 1 documented in this encounter Social History Tobacco [...] place to sleep or slept in a fdc (including now)? No 02/15/2023 CAGE ASSESSMENT Answer [...] drink first t pavan in the morning (EYE-HARDWARE ENGINEERING MANAGER) to steady your nerves or to get [...] Sign Reading Time Taken Comments Blood Pressure 140/97 09/20/2024 11:18 AM EDT Pulse 89 09/20/2024 11:18 AM EDT Temperature 36.5 C (97.7 F) 09/20/2024 11:00 AM EDT Respiratory Rate 12 09/20/2024 11:1 8 AM EDT Oxygen Saturation 94% 09/20/2024 11: 18 AM EDT Inhaled Oxygen Concentration - - [...] a day. 100 mL 01/01/2024 HYDROcodone-acetami nophen ([place]) 10-325 MG tablet TAKE ONE TABLET BY [...] - 09/20/2024 11:47 AM EDT Patient: Anupam Metz Jr. Anesthesia Type: general Vitals Value Taken Time BP 142/101 09/20/24 11:30 Temp 36.5 ??C (97.7 ??F) 09/20/24 11:00 Pulse 92 09/20/24 11:30 Resp 14 09/20/24 11:30 SpO2 93 % 09/20/24 11:30 Anesthesia PACU Signout Patient location during [...] III OR TEAM: Anesthesiologist: Dirk Garcia MD CERTIFICATION TECHNICIAN: Alexsander Eric CRNA Paint Maker: Mary Mishra Paint Maker: Ruchi Ramírez RN Scrub Person: Rima Potter [...] He underwent adjuvant radiation therapy completed in [place] on 04/01/2017. He was found to have [...] 06/20/2024), Disp: 100 mL, Rfl: 0 HYDROcodone-acetaminophen ([place]) 10-325 MG tablet, TAKE ONE TABLET BY [...] pharyngoscopy INDICATION: Dysphagia PROVIDER: Kyleigh Lyles MD Gynecologist: Milli ANESTHESIA: Local (lidocaine with afrin) PROCEDURE [...] disintegrating tablet Take morning of surgery HYDROcodone-acetaminophen ([place]) 10-325 MG tablet Take morning of surgery [...] card, photo ID, along with power of securities attorney, guardianship or advanced directives if applicable [...] Types: Cigarettes Start date: 1980 Quit date: 2016 Years since quittin.5 Smokeless tobacco: Never Vaping Use Vaping status: Never Used Substance Use Topics Alcohol use: Not Currently Comment: quit drinking beer about 2 months ago Drug use: Not Currently Types: Marijuana [1] Past Surgical History: Procedure Laterality Date EXPLORATORY LAPAROTOMY 06/27/2022 ([facility]) EXPLORATORY LAPAROTOMY 10/02/2022 ([facility]) OTHER SURGICAL HISTORY N/A Direct Laryngoscopy With Biopsy from [facility] OTHER SURGICAL HISTORY N/A Biopsy [facility] larynx from [facility] TOTAL LARYNGECTOMY N/A Total Laryngectomy from [facility] TOTAL LARYNGECTOMY TRACHEAL SURGERY [1] Allergies Allergen [...] [facility] [address] [place] [address] Bebeto Walton MD [address] [facility] [address] [place] [address] 10/06/2024 10:50 AM EDT [facility] [address], 3rd [place] [address] Kyleigh Lyles MD [address] [address] 10/25/2024 8:00 AM EDT Hospital Encounter [facility] Advanced Surgery [address] [place] [phone] Kyleigh Lyles MD [address] [address] 10/25/2024 8:00 AM EDT - 10/25/2024 9:20 AM EDT Surgery [facility] Advanced Surgery [address] [place] [address] Kyleigh Lyles MD [address] [address] FLEXIBLE ESOPHAGOSCOPY WITH BALLOON DILATION 11/13/2024 3:00 PM EDT [facility] [address], [address]rd [place] [address] Kyleigh Lyles MD [address] [address] Scheduled Procedures Name Priority Associated Diagnoses [...] Preprocedure, line care triamcinolone acetonide (Kenalog-40) injection As needed, Starting on Wed09/20/24 at 1020, Until Wed09/20/24 at 1033, Routine, Intraprocedure Given 09/20/2024 10:20 AM EDT 40 mg documented in this encounter Active and Recently Administered Medications Times are shown in EDT. Scheduled Medication Order 09/18/2024 09/19/2024 09/20/2024 lactated Ringer's infusion (COMPLETED) 100 mL/hr, Intravenous, Once, 1 dose, On Wed09/20/24 at 0945, Routine 0959 (New Bag - Prov ider: Alexsander Eric, [facility]) lactated Ringer's infusion 20 mL/hr, Intravenous, [...] documented as of this encounter Care Teams Media Theorist And Author Of Relationship Specialty Start Date End Date David Capone MD [address] [place] [address] PCP - General 11/30/22 Bebeto Walton MD [address] [facility] [address] [place] [address] Surgeon Otolaryngology 11/24/21 Gregoria Aviles MD [address] [place] [address] Referring Physician 11/02/22 Em Bell MD [address] [place] [address] [address] Surgeon Otolaryngology 01/13/23 documented as of this encounter
--- OUTSIDE RECORDS SUMMARY | 2024-09-21 14:18 | XMS_ITS | Encounter Summary ---
Author Organization Healthcare Address [address] [place] [address] Care Team Providers Care Pattern Assembler Name Role Phone Bebeto Walton MD Unavailable Gregoria Aviles MD Unavailable [phone] David Capone MD Primary Care Provider [phone] Em Bell MD Unavailable [phone] Encounter Details Date Type Department Care Team (Latest Contact Info) Description 09/19/2024 Travel Social History Tobacco Use Types Packs/Day [...] place to sleep or slept in a half-way (including now)? No 02/15/2023 CAGE ASSESSMENT Answer [...] drink first t pavan in the morning (EYE-HUMAN RESOURCES FILE CLERK) to steady your nerves or to get rid of a hangover? 1 10/02/2022 CAGE Questionnaire Score 2 023 Utilities Answer Date Recorded In the past 12 months has th e [employer], gas, oil, or water company threatened to [...] [facility] 800 [facility], 2nd [place] [phone] Bebeto Walton MD [address] [facility] [place] [address] 10/06/2024 10:50 AM EDT Office Visit [facility] Otolaryngology [address] [place] [address] [address] [place] [address] Kyleigh Lyles MD [address] [phone] 10/25/2024 8:00 AM EDT Hospital Encounter [facility] [address] [place] [phone] Kyleigh Lyles MD [address] [address] 10/25/2024 8:00 AM EDT - 10/25/2024 9:20 AM EDT Surgery [facility] [address] [place] [phone] Kyleigh Lyles MD [address] [phone] FLEXIBLE ESOPHAGOSCOPY WITH BALLOON DILATION 11/13/2024 3:00 PM EDT Office Visit [facility] Otolaryngology [address] [place] [phone] Kyleigh Lyles MD [address] [place] [address] [phone] Scheduled Procedures Name Priority Associated Diagnoses Date/Ti me DILATION, ESOPHAGUS Dysphagia, unspecified type 10/25/2024 8:00 AM EDT documented as of this encounter Goals Goal Patient Goal Type Associated Problems Recent Progress Patient-Stated? Author Autogenera fulton Goal Care Plan Autogenerated Problem No Sylvia Reyes Autogenera fulton Goal Care Plan Autogenerated Problem No Sylvia Reeys documented as of this encounter Visit Diagnoses [...] documented as of this encounter Care Teams Pattern Assembler Relationship Specialty Start Date End Date David Capone MD [address] [facility] [address]51 [place] [address] PCP - General 11/30/22 Bebeto Walton MD [address] [facility] [address] [place] [address] Surgeon Otolaryngology 11/24/21 Gregoria Aviles MD 8 [place] [address] Referring Physician 11/02/22 Em Bell MD [address] [address] Surgeon Otolaryngology 01/13/23 documented as of this encounter
--- OUTSIDE RECORDS SUMMARY | 2024-09-21 14:18 | XMS_ITS | Encounter Summary ---
Author Organization Healthcare Address [address] [place] [address] Care Team Providers Care Pick Remover Name Role Phone Bebeto Walton MD Unavailable Gregoria Aviles MD Unavailable David Capone MD Primary Care Provider [phone] Em Bell MD Unavailable [phone] Encounter Details Date Type Department Care Team (Late st Contact Info) Description 02/15/2023 Lab Requisition [facility] [address] [place] [address] Khalif Fountain MD [address] [facility] [address] [place] [phone] Encounter for general adult medical examination without [...] drink first t pavan in the morning (EYE-WALLET ASSEMBLER) to steady your nerves or to get rid of a hangover? 1 10/02/2022 CAGE Questionnaire Score 2 023 Utilities Answer Date Recorded In the past 12 months has th [employer] electric, gas, oil, or water [employer] threatened to shut off services in your [...] [facility] 800 [facility], 2nd [place] [phone] Bebeto Walton MD [address] [phone] 10/06/2024 10:50 AM EDT Office Visit [place] [facility] [address]rd [place] [address] Kyleigh Lyles MD [address] [address] 10/25/2024 8:00 AM EDT Hospital En[facility] [address] [place] [phone] Kyleigh Lyles MD [address] [address] 10/25/2024 8:00 AM EDT - 10/25/2024 9:20 AM EDT Surgery [facility] [address] [place] [phone] Kyleigh Lyles MD [address] [phone] FLEXIBLE ESOPHAGOSCOPY WITH BALLOON DILATION 11/13/2024 3:00 PM EDT Office Visit [place] [facility] [address], 3rd [place] [address] Kyleigh Lyles MD [address] [place] [address] Scheduled Procedures Name Priority Associated [...] Resistant Organisms Isolated 02/20/2023 12:58 PM EST [facility] Swab (Nares and Nimisha Rectal) 02/15/2023 5:26 PM EST 02/15/2023 6:27 PM EST us Khalif Fountain MD LAB MICROBIOLOGY - GEN ERAL ORDERABLES Final Result [facility] [address] [place] [address] documented in this encounter Visit Diagnoses Diagnosis Encounter for general adult medical examination without abnormal findings Dysphagia, unspecified type documented in this encounter Additional Health Concerns Assessment Noted Time A fall risk assessment has been complete d for the patient 12/28/2022 10:11 AM EDT A Body Mass Index follow-up plan has been documented for the patient 02/17/2023 2:53 PM EST documented as of this encounter Care Teams Pick Remover Relationship Specialty Start Date End Date David Capone MD [address] [place] [address] PCP - General 11/30/22 Bebeto Walton MD [address] [place] [address] Surgeon Otolaryngology 11/24/21 Gregoria Aviles MD 8 [facility] [place] [address] Referring Physician 11/02/22 Em Bell MD [address] [place] [address] [address] Surgeon Otolaryngology 01/13/23 documented as of this encounter
--- OUTSIDE RECORDS SUMMARY | 2024-09-21 14:18 | XMS_ITS ---
Author Organization Healthcare Address [address] [place] [address] Care Team Providers Care Pattern Checker Name Role Phone Bebeto Walton MD Unavailable Gregoria Aviles MD Unavailable [phone] David Capone MD Primary Care Provider [phone] Em Bell MD Unavailable [phone] Active Problems Problem Noted Date Diagnosed Date [...] completed Follow up with outpatient trauma surgery [facility] clinic in 4 weeks following [...]
--- OUTSIDE RECORDS SUMMARY | 2024-09-21 14:19 | XMS_ITS | Clinical Summary ---
Author Organization Healthcare Address [address] [place] [address] Care Team Providers Care Ged Tutor Name Role Phone Bebeto Walton MD Unavailable Gregoria Aviles MD Unavailable [phone] David Capone MD Primary Care Provider [phone] Em Bell MD Unavailable [phone] Allergies Active Allergy Reactions Criticality Noted Date Comments Gabapentin Other - please docum ent in the comment field Low 11/30/2022 Tramadol Other - please docum ent in the comment field Low 11/30/2022 Stomach issues Medications levothyroxine (Synthroid, Levoxyl) 137 MCG tablet Take 1 tablet by mouth daily. Active ibuprofen 600 MG tablet Take 1 [...] Additional Information Patient not taking.Reported on 07/18/2024 docusate sodium (Colace) 50 MG/5ML oral liquid [...] for 14 days. 45 tablet 03/30/19 Active HYDROcodone-acetam inophen (Newcomb) 10-325 MG tablet TAKE ONE TABLET BY MOUTH THREE TIMES DAILY MAY CAUSE DROWSINESS Active diazePAM (Valium) 5 MG tablet TAKE ONE (1) TABLET TWICE A DAY BY ORAL ROUTE FOR 30 DAYS. 12/02/19 025 Discontin ued(Stop Taking at Discharge ) oxyCODONE-acetamin ophen (Percocet) 10-325 MG tablet 3 (three) times a day if needed. 02/19/20 025 Discontin ued(Stop Taking at Discharge ) predniSONE (Deltasone) 20 MG tablet TAKE ONE (1) TABLET EVERY DAY BY ORAL ROUTE AFTER A MEALSFOR 30 DAYS. 02/19/20 025 Discontin ued(Stop Taking at Discharge ) sulfamethoxazole-t rimethoprim (Bactrim DS) 800-160 MG tablet TAKE 1 TABLET BY MOUTH EVERY 12 HOURS FOR 10 DAYS 02/23/20 025 Discontin ued(Stop Taking at Discharge ) Active Problems Problem Noted Date Diagnosed Date [...] completed Follow up with outpatient trauma surgery [facility] clinic in 4 weeks following discharge for [...] Encounters Date Type Department Care Team Description 09/20/2024 10:10 AM EDT - 09/20/2024 11:20 AM EDT Surgery [facility] [address] [place] [address] Kyleigh Lyles MD FLEXIBLE ESOPHAGOSCOPY WITH BALLOON DILATION 09/20/2024 9:59 AM EDT Anesthesia Event [facility] [address] [place] [address] Dirk Garcia MD 09/20/2024 8:43 AM EDT - 09/20/2024 11:47 AM EDT Hospital Encounter [facility] [address] [place] [address] Kyleigh Lyles MD Discharge Disposition: Home or Self Care 09/19/2024 Travel 07/18/2024 10:00 AM EDT Consult [facility] [address], [address]rd [place] [address] Kyleigh Lyles MD Primary tongue squamous cell carcinoma; Oropharyngeal dysphagia 07/18/2024 Travel 07/12/2024 Social Work Psych Oncology [address] [place] [address] Priyanka Mayorga from Last 3 Months Immunizations Immunization Administration [...] drink first t pavan in the morning (EYE-CREDIT COLLECTION ASSOCIATE) to steady your nerves or to get [...] Mass Index 24.97 09/20/2024 8:57 AM EDT Plan of Treatment Upcoming Encounters Date Type Department Care Team (Latest Contact Info) Description 10/05/2024 2:00 PM EDT Office Visit [facility] Head[facility] Neck & Respiratory 800 [facility], 2nd [place] [address] Bebeto Walton MD [address] [facility] [address] [place] [address] 10/06/2024 10:50 AM EDT [facility] [address], 3rd [place] [address] Kyleigh Lyles MD [address] [facility] [address] [place] [address] 10/25/2024 8:00 AM EDT Hospital Encounter [facility] [address] [place] [address] Kyleigh Lyles MD [address] [place] [address] 10/25/2024 8:00 AM EDT - 10/25/2024 9:20 AM EDT Surgery [facility] [address] [place] [address] Kyleigh Lyles MD [address] [place] [address] FLEXIBLE ESOPHAGOSCOPY WITH BALLOON DILATION 11/13/2024 3:00 PM EDT [facility] [address], [address]rd [place] [address] Kyleigh Lyles MD [address] [place] [address] Scheduled Procedures Name Priority Associated [...] 05/26/2012 Sigmoidoscopy 05/26/2012 [facility]-Colorectal Cancer Screening 05/26/2012 [id number] Vaccine ( season) 2023 01/22/2021, 06/06/2020, 05/09/2020 [facility]-Influenza Vaccine (#1) 11/06/202401/17, 12/28/2018 [facility]Lung Cancer Screening 06/20/20252024, 12/28/2022, 10/02/2022 [...] fulton Goal Care Plan Autogenerated Problem No AmySylvai Procedures Procedure Name Priority Date/Time Associated Diagnosis Comments PB ANESTHESIA PLACEHOLDER Routine 09/20/2024 10:08 AM EDT AL AN ELECTIVE ENDOTRACHEAL AIRWAY Routine 09/20/2024 10:08 AM EDT DILATION, ESOPHAGUS 09/20/2024 9 :54 AM EDT Dysphagia, unspecified type CT CHEST W IV CONTRAST STAT 06/20/2024 8:22 AM EDT Primary tongue squamous cell carcinoma Oropharyngeal dysphagia HEMOGLOBIN A1C Add-On 10/03/2022 12:11 AM EDT from Last 3 Months or Most Recently Relevant to Health Maintenance Results * AL AN ELECTIVE ENDOTRACHEAL AIRWAY, PB ANESTHESIA PLACEHOLDER (09/20/2024 10:08 AM EDT) Narrative Alexsander Eric CRNA - 09/20/2024 10:08 AM EDT Alexsander Eric CRNA 09/20/2024 10:18 AM Airway Date/Time: 09/20/2024 10:08 AM Reason: elective Airway not difficult General Information and Staff Patient location during procedure: OR PROGRAMMING SPECIALIST: Alexsander Eric CRNA Performed: PROGRAMMING SPECIALIST Patient Condition Indications for airway management: anesthesia [...] Garcia MD ANESTHESIA ORDERABLES Fin al Result * CT Chest w IV Contrast (06/20/2024 [...] MD IMG CT PROCEDURES Final Result * (ABNORMAL) Hemoglobin A1c (10/03/2022 12:11 AM EDT) Hemoglobin A1c 5.7(H) <5.7 % 10/03/2022 7:11 AM EDT [facility] Blood Venous blood specimen / Unknown Venipuncture / Unknown 10/03/2022 12:11 AM EDT 10/03/2022 12:20 AM EDT Narrative [facility] - 10/03/2022 7:11 AM EDT HA1C Interpretive Data: Diagnosis of Diabetes: Diabetic > or = 6.5% Pre-diabetic 5.7 to 6.4% Non-diabetic < or = 5.6% Glycemic Targets for Type I and Type II Diabetics: Non- Adults <7.0% Adults <6.0% Children and Adolescents <7.5% Source: [place] [employer]. Standards of medical care in diabetes,2017. Diabetes Care.2017:40 (suppl 1):S1-S135. HbA1c assay performed by an ion-exchange chromatography method that is certified traceable to the DCCT. us Malachi Gomez MD LAB BLOOD ORDERABLES Final Res ult [facility] [address] [place] [id number] from Last 3 Months or Most Recently Relevant to Health Maintenance Additional Health Concerns Active Problems Noted Date Diagnosed Date Autogenerated Problem 07/19/2024 Autogenerated Problem 07/19/2024 Insurance [facility] [email or web address] [facility] MEDICAID Advance Directives * Full Code (Latest [...] Patient has decision-making capacity? Yes Care Teams Ged Tutor Relationship Specialty Start Date End Date David Capone MD [address] [place] [address] PCP - General 11/30/22 Bebeto Walton MD [address] [facility] [address] [place] [address] Surgeon Otolaryngology 11/24/21 Gregoria Aviles MD [address] [place] [address] Referring Physician 11/02/22 Em Bell MD [address] [place] [address] Surgeon Otolaryngology 01/13/23
--- OUTSIDE RECORDS SUMMARY | 2024-09-21 14:19 | XMS_ITS | Encounter Summary ---
Author Organization Healthcare Address [address] [place] [address] Care Team Providers Care Reversal Print Inspector Name Role Phone Ana Dickson CAR CONSTRUCTION SUPERINTENDENT Primary Care Provider [phone] Bebeto Walton MD Unavailable Gregoria Aviles MD Unavailable [phone] David Capone MD Primary Care Provider [phone] Em Bell MD Unavailable [phone] Encounter Details Date Type Department Care Team (Late st Contact Info) Description 11/12/2022 Lab Requisition [facility] [address] [place] [address] Bebeto Walton MD [address] [place] [address] Other diseases of tongue Social History Tobacco [...] drink first t pavan in the morning (EYE-PHOTORADIO OPERATOR) to steady your nerves or to get [...] Pav [facility] Head, Neck & Respiratory 800 [facility], 2nd [place] [address] Bebeto Walton MD [address] [place] [address] 10/06/2024 10:50 AM EDT Office Visit [place] [facility] [address], [address]rd [place] [address] Kyleigh Lyles MD [address] [place] [address] 10/25/2024 8:00 AM EDT Hospital Encounter [facility] [address] [place] [address] Kyleigh Lyles MD [address] [place] [address] 10/25/2024 8:00 AM EDT - 10/25/2024 9:20 AM EDT Surgery [facility] [address] [place] [address] Kyleigh Lyles MD [address] [place] [address] FLEXIBLE ESOPHAGOSCOPY WITH BALLOON DILATION 11/13/2024 3:00 PM EDT Office Visit [facility] [address], [address]rd [place] [address] Kyleigh Lyles MD [address] [place] [address] Scheduled Procedures Name Priority Associated Diagnoses Date/Ti me DILATION, ESOPHAGUS Dysphagia, unspecified type 10/25/2024 8:00 AM EDT documented as of this encounter Procedures Procedure Name Priority Date/Time Associated Diagnosis Comments SURGICAL PATHOLOGY CONSULT Routine 11/12/2022 10:59 AM EDT Other diseases of tongue documented in this encounter Results * Surgical Pathology Consult (11/12/2022 10:59 AM EDT) Case Report Sugical Pathology Consult Case: [id number] Authorizing Provider: Bebeto Walton MD Collected: 11/12/2022 1059 Ordering Location: [facility] Lab Received: 11/12/2022 1100 Pathologist: Yang Perez MD Specimen: Tongue, [id number] 3 3:15 PM EDT [facility] Final Diagnosis A. RIGHT LATERAL TONGUE LESION, BIOPSIES (OUTSIDE CASE [id number]; COLLECTED ON 10/26/2022): - INVASIVE MODERATELY DIFFERENTIATED SQUAMOUS CELL CARCINOMA 3 3:15 PM EDT [facility] at 1515 EDT Clinical Information K14.8 - Other diseases of tongue [ICD-10-CM] 3 3:15 PM EDT [facility] Gross Description A. [id number] [facility] and 1 block labeled outside case: [id number] collected on 10/26/2022. 3 3:15 PM EDT [facility] Intradepartmental Consultation with Agreement Dr Oksana Guevara 3 3:15 PM EDT [facility] Note: A resident was involved in the service. I attest I examined the relevant preparations for the specimens and confirmed the diagnosis or interpretation. 3 3:15 PM EDT [facility] Tissue Tongue structure / Unknown 11/12/2022 10:59 AM EDT 11/12/2022 11:00 AM EDT us Bebeto Walton MD LAB PATHOLOGY ORDERABLES Final R esult [facility] [address] [place] [address] documented in this encounter Visit Diagnoses Diagnosis Other diseases of tongue Dysphagia, unspecified type documented in this encounter Care Teams Reversal Print Inspector Relationship Specialty Start Date End Date Ana Dickson APRN PCP - General 07/19/20 11/29/22 David Capone MD [address] [facility] [address] [place] [address] PCP - General 11/30/22 Bebeto Walton MD [address] [facility] [address] [place] [address] Surgeon Otolaryngology 11/24/21 Gregoria Aviles MD [address] [place] [address] Referring Physician 11/02/22 Em Bell MD [address] [address] Surgeon Otolaryngology 01/13/23 documented as of this encounter
--- OUTSIDE RECORDS SUMMARY | 2024-09-21 14:19 | XMS_ITS | CCD ---
Author Name Interface, [email or web address] lity Address [address] [place] [address] Organization [facility] Address [address] [place] [address] Care Team Providers Care Coin Machine Supervisor Name Role Phone Manuel WONG, Yury Chandler Unavailable Unavailable Reason for Visit NEW Social History Date Name Value Sex Male
--- OUTSIDE RECORDS SUMMARY | 2024-09-21 14:19 | XMS_ITS | Encounter Summary ---
Author Organization Healthcare Address [address] [place] [address] Care Team Providers Care Shift Supervisor Film Processing Name Role Phone Ana Dickson BRIDGE REPAIRER Primary Care Provider [phone] Bebeto Walton MD Unavailable Gregoria Aviles MD Unavailable [phone] David Capone MD Primary Care Provider [phone] Em Bell MD Unavailable [phone] Encounter Details Date Type Department Care Team (Late st Contact Info) Description 10/05/2022 Lab Requisition [facility] [address] [place] [address] Yajaira Pisano MD [address] [address] Encounter for general adult medical [...] drink first t pavan in the morning (EYE-PROFESSOR OF FORESTRY) to steady your nerves or to get [...] Description 10/05/2024 2:00 PM EDT Office Visit [facility] Head[facility] Neck & Respiratory 800 [facility], [address]nd [place] [address] Bebeto Walton MD [address] [place] [address] 10/06/2024 10:50 AM EDT Office Visit [place] [facility] [address], [address]rd [place] [address] Kyleigh Lyles MD [address] [facility] [address] [place] [address] 10/25/2024 8:00 AM EDT Hospital Encounter [facility] [address] [place] [address] Kyleigh Lyles MD [address] [facility] [address] [place] [address] 10/25/2024 8:00 AM EDT - 10/25/2024 9:20 AM EDT Surgery [facility] [address] [place] [address] Kyleigh Lyles MD [address] [facility] [address] [place] [address] FLEXIBLE ESOPHAGOSCOPY WITH BALLOON DILATION 11/13/2024 3:00 PM EDT Office [facility] [address], [address] [place] [address] Kyleigh Lyles MD [address] [place] [address] Scheduled Procedures Name Priority Associated Diagnoses Date/Ti [...] GENERAL ORDERABLES Final Result [facility] [address] [place] [address] documented in this encounter Visit Diagnoses Diagnosis Encounter for general adult medical examination without abnormal findings Dysphagia, unspecified type documented in this encounter Care Teams Shift Supervisor Film Processing Relationship Specialty Start Date End Date Ana Dickson APRN PCP - General 07/19/20 11/29/22 David Capone MD [address] [facility] [address] [place] [address] PCP - General 11/30/22 Bebeto Walton MD [address] [facility] [address] [place] [address] Surgeon Otolaryngology 11/24/21 Gregoria Aviles MD [address] [place] [address] Referring Physician 11/02/22 Em Bell MD 800 [facility] Cancer [address] [phone] Surgeon Otolaryngology 01/13/23 documented as of this encounter
--- OUTSIDE RECORDS SUMMARY | 2024-09-21 14:19 | XMS_ITS | CCD ---
Author Name Interface, [id number] lity Address [address] [place] [address] Organization [facility] Address [address] [place] [address] Care Team Providers Care Candle Molder Hand Name Role Phone Manuel WONG, Yury Chandler Unavailable Unavailable Reason for Visit NEW Social History Date Name Value Sex Male
--- OUTSIDE RECORDS SUMMARY | 2024-09-21 14:19 | XMS_ITS | Encounter Summary ---
Author Organization Healthcare Address [address] [place] [address] Care Team Providers Care Grain Grader Name Role Phone Ana Dickson SOIL FERTILITY EXTENSION SPECIALIST Primary Care Provider Bebeto Walton MD Unavailable Gregoria Aviles MD Unavailable [phone] David Capone MD Primary Care Provider [phone] Em Bell MD Unavailable [phone] Encounter Details Date Type Department Care Team (Late st Contact Info) Description 07/05/2022 Lab Requisition [facility] [address] [place] [address] Lisa Michaud MD [address] [place] [address] Unspecified general medical examination Social [...] Pav CC Head, Neck & Respiratory 800 [facility], 2nd [place] [address] Bebeto Walton MD [address] [address] 10/06/2024 10:50 AM EDT Office Visit [place] [facility] [address], [address]rd [place] [address] Kyleigh Lyles MD [address] [address] 10/25/2024 8:00 AM EDT Hospital Encounter [facility] [address] [place] [address] Kyleigh Lyles MD [address] [address] 10/25/2024 8:00 AM EDT - 10/25/2024 9:20 AM EDT Surgery [facility] [address] [place] [address] Kyleigh Lyles MD [address] [place] [address] FLEXIBLE ESOPHAGOSCOPY WITH BALLOON DILATION 11/13/2024 3:00 PM EDT Office Visit [place] [facility] [address], [address] [place] [address] Kyleigh Lyles MD [address] [place] [address] Scheduled Procedures Name Priority Associated [...] Non Reactive 07/05/2022 3:25 PM EDT [facility] Comment:Screening for HIV 1 & 2 antibodies, and P24 antigen is NONREACTIVE. No confirmatory testing is required. Blood Venous blood specimen / Unknown 07/05/2022 2:21 PM EDT 07/05/2022 2:21 PM EDT us Lisa Michaud MD LAB BLOOD ORDERABLES Final Resul t [facility] [address] [place] [address] documented in this encounter Visit Diagnoses Diagnosis Unspecified general medical examination Dysphagia, unspecified type documented in this encounter Care Teams Grain Grader Relationship Specialty Start Date End Date Ana DicksonYNES PCP - General 07/19/20 11/29/22 David Capone MD 1551 [facility] 1551 [place] [address] PCP - General 11/30/22 Bebeto Walton MD [address] [facility] [address] [place] [address] Surgeon Otolaryngology 11/24/21 Gregoria Aviles MD [address] [place], [place] [phone] Referring Physician 11/02/22 Em Bell MD [address] [address] Surgeon Otolaryngology 01/13/23 documented as of this encounter
--- OUTSIDE RECORDS SUMMARY | 2024-09-21 14:19 | XMS_ITS | Encounter Summary ---
Author Organization Healthcare Address [address] [place] [address] Care Team Providers Care Cooker Loader Name Role Phone Ana Dickson ELECTRICAL WIRER Primary Care Provider [phone] Bebeto Walton MD Unavailable Gregoria Aviles MD Unavailable [phone] David Capone MD Primary Care Provider [phone] Em Bell MD Unavailable [phone] Encounter Details Date Type Department Care Team (Late st Contact Info) Description 01/25/2017 Orders Only External Location [address] [place] [address] Provider, External Social History Tobacco Use Types [...] Pav CC Head, Neck & Respiratory 800 [facility], 2nd [place] [address] Bebeto Walton MD [address] [place] [address] 10/06/2024 10:50 AM EDT Office Visit [facility] Otolaryngology [address] [place] [address] Kyleigh Lyles MD [address] [facility] [address] [place] [address] 10/25/2024 8:00 AM EDT Hospital Encounter [facility] [address] [place] [address] Kyleigh Lyles MD [address] [address] 10/25/2024 8:00 AM EDT - 10/25/2024 9:20 AM EDT Surgery [facility] [address] [place] [address] Kyleigh Lyles MD [address] [address] FLEXIBLE ESOPHAGOSCOPY WITH BALLOON DILATION 11/13/2024 3:00 PM EDT Office Visit [facility] Otolaryngology [address] [place] [address] Kyleigh Lyles MD [address] [address] Scheduled Procedures Name Priority Associated Diagnoses Date/Ti [...] on filedocumented in this encounter Care Teams Cooker Loader Relationship Specialty Start Date End Date Ana Dickson APRN PCP - General 07/19/20 11/29/22 David Capone MD 1551 [facility] [address]51 [place] [address] PCP - General 11/30/22 Bebeto Walton MD [address] [place] [address] Surgeon Otolaryngology 11/24/21 Gregoria Aviles MD 8 [place] [address] Referring Physician 11/02/22 Em Bell MD 800 [facility] [address] [address] Surgeon Otolaryngology 01/13/23 documented as of this encounter
--- NOTE | 2024-09-21 15:23 | EXP.PAIN.SOA ---
[facility] Disclaimer: The information contained in this section may have been updated after the patient was seen, as this information can be updated by other users. Medical History Anxiety Alcoholism Hypothyroidism Larynx cancer Surgical History H/O abdominal surgery H/O thyroidectomy H/O laryngectomy Family History Sister Breast cancer Social History Smoking Status: Unknown if ever smoked alcohol intake: former current occupational status: disabled Travel in the last 8 weeks?: None PM Subjective & Objective Subjective Subjective:: Patient is a pleasant 59-year-old male who presents today for medication refill and follow-up. He rates his pain today an 8 out of 10. He denies any new trauma or injury. He does state he is still having a lot of pain and is asking if we can add an extra tablet on his pain medication. Patient is currently managed with Paoli 10 mg 3 times a day from our office. He denies any side effects. His Ezra has been reviewed and is appropriate. Review of Systems: General: No recent weight changes, no fever, no sleep disturbances Respiratory: No cough, no shortness of air, no recurring pulmonary infections Cardiovascular/peripheral vascular: No chest pain, no palpitations, no edema, no shortness of breath Gastrointestinal: No new onset incontinence, normal bowel movements reported Genitourinary: No new onset incontinence Musculoskeletal: Chronic neck pain, cancer related pain Psychiatric: [Normal mood/affect] Neurological: [Denies weakness in extremities], [denies balance issues] Pain at rest (0-10 scale): 8 Objective Objective:: Physical Exam: General: Alert and oriented x3, no acute distress, pleasant and cooperative Lungs: Respirations even and unlabored, symmetrical chest expansion Eyes: PERRL Musculoskeletal: Flexion and extension of cervical [spine] somewhat guarded secondary to pain, [antalgic gait noted] Neurological: Speech clear, no gross sensory deficit Has patient had previous pain injection?: No Conservative treatment options previously tried: Home exercise plan Length of treatment: Longer than 12 weeks Meds Home Medications and Allergies Home Medications ?Medication ?Instructions ?Recorded ?Confirmed ?Type levothyroxine 137 mcg tablet 137 mcg PO AM 01/27/24 08/30/24 History doxycycline hyclate 100 mg tablet 100 mg PO BID 7 days #14 tabs 07/14/24 08/30/24 Rx furosemide 20 mg tablet (Lasix) 20 mg PO DAILY 1 week #7 tabs 07/14/24 08/30/24 Rx prednisone 20 mg tablet 40 mg (2 x 20 mg) PO DAILY 5 days 07/14/24 08/30/24 Rx #10 tabs clonazepam 0.5 mg tablet 1 mg (2 x 0.5 mg) PO TID anxiety 08/30/24 08/30/24 Rx 30 days #180 tabs hydrocodone 10 mg-acetaminophen 1 tab PO TID #90 tabs 09/21/24 Rx 325 mg tablet methocarbamol 500 mg tablet 500 mg PO TID #42 tabs 09/21/24 Rx New Prescriptions to Start Prescriptions: hydrocodone-acetaminophen Beyer,Ирина A methocarbamol Beyer,Ирина A Allergies Allergy/AdvReac Type Severity Reaction Status Date / Time gabapentin Allergy Unknown Verified 08/30/24 14:20 allergy reaction tramadol Allergy Unknown Verified 08/30/24 14:20 allergy reaction Assessment and Plan *Assessment and plan (1) Cancer: Status: Acute Category: Medical Code(s): C80.1 - Malignant (primary) neoplasm, unspecified (2) Neck pain: Status: Acute Category: Medical Code(s): M54.2 - Cervicalgia (3) Cervical radiculopathy: Status: Acute Category: Medical Code(s): M54.12 - Radiculopathy, cervical region Plan I did discuss with the patient that as of right now we will leave his current medication as 3 times a day and provide a 1 month supply. We will incorporate and send in a 2-week supply of methocarbamol 500 mg 3 times daily as needed. Patient was counseled that this can just be taken as needed. Patient does state in the past he had had a medication that caused him to pass out however he is unsure what exactly the name of this was. Patient did not recognize the Robaxin or methocarbamol name. Patient was counseled to take the methocarbamol when he is not having to go anywhere and that he can break it in half if need be to see how he responds to this. Patient was counseled to call our office if he has any side effects. Patient acknowledges understanding agrees with this plan of care. Risks and benefits of the medication have been explained in detail to the patient. The patient does understand the risk of dependence on the medication when given over a prolonged period. Patient has been advised of risks of oversedation with the prescribed medication. Narcan has been offered to the paitent in the event of oversedation. Patient has been advised that a family member should also be educated regarding administration of Narcan. The patient has been advised to consult with his/her primary care provider and pharmacist regarding drug-drug interaction of medications currently prescribed. Patient has been prescribed a controlled substance after being counseled on the medication, medication safety, and possible side effects. Opioid contract was reviewed and signed by the patient, and that they have agreed to all of the terms set forth by our compliance program. A UDS is needed to verify patient's compliance with our office pain contract. This is ordered based off specific treatments related to chronic pain with the potential to abuse certain medications. Patient has been instructed to contact the clinic with any concerns before the next appointment. Dr. Mccrary has reviewed this note and agrees with this plan of care. This note was dictated using voice recognition software and make contain errors or omissions.
[2024-09-21 15:25] VITALS: BP 144/87; PULSE 98; RESP 18; O2SAT 100; BMI 23.3
== END 2024-09-21 23:59 | disposition home or self-care (01) ==
PROVIDERS: PCP Nurse Practitioner Family; Visit Provider Nurse Practitioner Family
DX: C80.1 Malignant (primary) neoplasm, unspecified (principal); M54.2 Cervicalgia; Z79.899 Other long term (current) drug therapy
CPT/HCPCS: 99212; G0463

== ENCOUNTER 2024-10-19 11:28 | Outpatient (POV) | payer MEDICAID, SELFPAY ==
--- OUTSIDE RECORDS SUMMARY | 2024-09-20 08:43 | XMS_ITS | Encounter Summary ---
Author Organization Healthcare Address [address] [place] [address] Care Team Providers Care Local Delivery Truck Driver Name Role Phone Bebeto Walton MD Unavailable Gergoria Aviles MD Unavailable [phone] David Capone MD Primary Care Provider [phone] Em Bell MD Unavailable [phone] Reason for Visit * Auth/Cert (Routine) Specialty Diagnoses / Procedures Referred By Contac t Referred To Contact Diagnoses Dysphagia, unspecified type Dysphagia, unspecified type [R13.10] Procedures HI ESOPHAGOSCOPY FLEXIBLE TRANSORAL DIAGNOSTIC HI ESOPHAGOSCOPY FLEXIBLE TRANSORAL W SUBMUCOUS INJ HI ESOPHAGOSCOPY FLEX BALLOON DILAT <30 MM DIAM FLEXIBLE ESOPHAGOSCOPY WITH BALLOON DILATION Kyleigh Lyles MD [address] [facility] [address] [place] [address] Phone: tel: fax: [facility] [address] [place] [address] Phone: tel: Referral ID Status Reason Start Date Expiration Date Visits Re quested Visits Authorized [id number] 1 1 Encounter Details Date Type Department Care Team (Latest Contact Info) Description 09/20/2024 8:43 AM EDT - 09/20/2024 11:47 AM EDT Hospital Encounter [facility] [address] [place] [address] Kyleigh Lyles MD [address] [place] [address] Discharge Disposition: Home or Self Care Social History Tobacco Use Types Packs/Day Years [...] No 02/15/2023 Housing Stability Vital Sign Answer Biran e Recorded In the last 12 months, [...] place to sleep or slept in a senior care (including now)? 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 1 10/02/2022 CAGE Questionnaire Score 2 023 Utilities Answer Date Recorded In the past 12 months has th [employer], gas, oil, or water [employer] threatened to shut off services in your home? No 02/15/2023 Sex and Gender Information Value Date Recorded Sex Assigned at Male 10/02/2022 9:55 AM EDT Legal Sex Male 7:41 PM EDT Gender Identity Male 10/02/2022 9:55 AM EDT Sexual Orientation Not on file documented as of this encounter Last Filed Vital Signs Vital Sign Reading Time Taken Comments Blood Pressure 142/101 09/20/2024 11:30 AM EDT Pulse 92 09/20/2024 11:30 AM EDT Temperature 36.5 C (97.7 F) 09/20/2024 11:00 AM EDT Respiratory Rate 14 09/20/2024 11:3 0 AM EDT Oxygen Saturation 93% 09/20/2024 11: 30 AM EDT Inhaled Oxygen Concentration - - Weight 90.6 kg (199 lb 11.8 oz) 09/20/2024 8:57 AM EDT Height 190.5 cm (6' 3 ) 09/20/2024 8:57 AM EDT Body Mass Index 24.97 09/20/2024 8:57 AM EDT documented in this encounter Functional Status * Calculated C-SSRS Risk Score (Lifetime/Recent) Answer Date of Assessment Author No Risk Indicated 09/20/2024 9:03 AM EDT Earnestine Wiggins RN * Question Answer Date of Assessment Author 1. Wish to be (Past 1 Month) No 025 9:03 AM EDT Earnestine Wiggins RN 2. Non-Specific Active Suici corbin Thoughts (Past 1 Month) No 09/20/2024 9:03 AM EDT Vinicius Wiggins RN 6. Suicidal Behavior (Lifetime) No 9:03 AM EDT Earnestine Wiggins RN documented as of this encounter Medications at Time of Discharge clonazePAM (KlonoPIN) 1 MG disintegrating tablet Take 1 tablet (1 mg) by mouth 3 (three) times a day for 14 days. 45 tablet 03/30/2024 docusate sodium (Colace) 50 MG/5ML oral liquid Take 10 mL (100 mg) by mouth 2 (two) times a day. 100 mL 01/01/2024 HYDROcodone-acetami nophen ([place]) 10-325 MG tablet TAKE ONE TABLET BY MOUTH THREE TIMES DAILY MAY CAUSE DROWSINESS ibuprofen 600 MG tablet Take 1 tablet (600 mg) by mouth 3 (three) times a day. levothyroxine (Synthroid, Levoxyl) 137 MCG tablet Take 1 tablet by mouth daily. naloxone (Kloxxado) 8 mg/0.1 mL nasal spray 1. Give 1 spray in nostril for no/slow breathing or cannot wake after opioid use 2. Call 911 3. Repeat in other nostril if symptoms continue 1 each 02/17/2023 senna (Senokot) 8.8 MG/5ML syrup Take 10 mL (17.6 mg) by mouth 2 (two) times a day. 240 mL 01/01/2024 documented as of this encounter Miscellaneous Notes * Anesthesia PACU Signout - Dirk Garcia MD - 09/20/2024 11:47 AM EDT Patient: Anupam Dengal Ellison. Anesthesia Type: general Vitals Value Taken Time BP 142/101 09/20/24 11:30 Temp 36.5 ??C (97.7 ??F) 09/20/24 11:00 Pulse 92 09/20/24 11:30 Resp 14 09/20/24 11:30 SpO2 93 % 07/16/25 11:30 Anesthesia PACU Signout Patient location during evaluation: PACU Patient participation: complete - patient participated Level of consciousness: baseline and awake Pain management: adequate (pain score 0-3) Airway patency: natural airway Hydration status: acceptable PONV: none Cardiovascular status: acceptable and hemodynamically stable Respiratory status: acceptable, spontaneous ventilation, unassisted and nonlabored ventilation * Op Note - Juan Lombardi MD - 09/20/2024 10:11 AM EDT OTOLARYNGOLOGY-HEAD & NECK SURGERY OPERATIVE NOTE PATIENT NAME:? Anupam Metz Jr. DATE OF /AGE: 3 1965, 59 y.o. DATE OF PROCEDURE: ?09/20/2024 LOCATION: [facility] OR PREOPERATIVE DIAGNOSIS: Dysphagia Upper esophageal sphincter narrowing Cricopharyngeal hypertrophy PROCEDURE PERFORMED: Flexible esophagoscopy with balloon dilation Kenalog injection to cricopharyngeus ATTENDING SURGEON: Kyleigh Lyles MD RESIDENT SURGEON: Dr. Lombardi ANESTHESIA: General ASA: III OR TEAM: Anesthesiologist: Dirk Garcia MD CNC ROUTER OPERATOR: Alexsander Eric CRNA Manager Intern: Mary Mishra Relief Manager Intern: Ruchi Ramírez RN Scrub Person: Rima Potter DRAINS, STENTS, IMPLANTS: None SPECIMEN: None ESTIMATED BLOOD LOSS: 1 cc. OPERATIVE FINDINGS: Prominent CP bar causing narrowing of the upper esophageal sphincter that was easily dilated to 15 mm. CP bar itself was soft and compressible. No evidence of further esophageal stenosis or narrowingdistally. No irregularity at the Z-line Able to pass the esophagoscope through the GE junction without difficulty. OPERATIVE DESCRIPTION: After informed consent was obtained that patient was transported to the operating room and placed in the supine position on the operating room table. The patient was intubated through his laryngectomy stoma and turned 90 degrees away from the anesthesia team. The patient was prepped and draped in the standard fashion for laryngoscopy. A moist raytec was placed and a Dedo laryngoscope was inserted into the neopharynx. The laryngoscope was placed into suspension and the transnasal esophagoscope was carefully advanced through the laryngoscope and into the cervical esophagus. It was carefully advanced along the length of the esophagus and into the stomach. It was slowly retracted and the esophagus was visualized in its entirety. Pertinent operative findings are listed above. An area of stenosis was identified and the 10-12 CRE balloon was advanced through the laryngoscope and into the esophagus at the level of the stenosis. The balloon was inflated and held in place for approximately 1 minute. It was then deflated and removed from the esophagus. There were no mucosal tears and then we placed a 12-15 CRE balloon and advanced this through the laryngoscope and into the esophagus at the level of the stenosis. This was then inflated and held for 60 seconds before it wasremoved. We then injected 1 mL of kenalog into the CP muscle itself. At this time the transnasal esophagoscope was removed, the patient was taken out of suspension, andthe laryngoscope and raytec were removed. The patient was turned back to the anesthesia care team, extubated without difficulty, and transferred to the post-operative care unit in stable condition. COMPLICATIONS:? None immediate Cosigned by Kyleigh Lyles MD at 09/20/2024 11:41 AM EDT Associated attestation - Kyleigh Lyles MD - 09/20/2024 11:41 AM EDT I was present for the entirety of the procedure(s). * H&P - Juan Lombardi MD - 09/20/2024 8:58 AM EDT H&P reviewed without significant changes. To OR as scheduled. Will also plan to perform kenaloginjection into CP and possible CP myotomy. Consent obtained. Anupam Metz Jr. is a(n) 59 y.o. male with dysphagia. 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 He underwent adjuvant radiation therapy completed in [place] on 04/01/2017. He was found to have [...] reports current drug use. Drug: Marijuana. MEDS: [Current Medications] [Current Medications] Current Outpatient Medications: clonazePAM (KlonoPIN) 1 MG [...] 06/20/2024), Disp: 100 mL, Rfl: 0 HYDROcodone-acetaminophen ([place]) 10-325 MG tablet, TAKE ONE TABLET BY [...] taking: Reported on 06/20/2024), Disp: , Rfl: ALLERGIES: Gabapentin and Tramadol PHYSICAL EXAM: There [...] pharyngoscopy INDICATION: Dysphagia PROVIDER: Kyleigh Lyles MD Loadmaster: Milli ANESTHESIA: Local (lidocaine with afrin) PROCEDURE [...] EGD could be considered for further evaluation. Assessment/Plan Anupam Metz [...] in the OR rather than in clinic. Cosigned by Kyleigh Lyles MD at 09/20/2024 10:07 AM EDT Associated attestation - Kyleigh Lyles MD - 09/20/2024 10:07 AM EDT Signature only. * Preprocedure Instructions - Concepcion Gutierrez RN - 09/04/2024 1:44 PM EDT Home Medication Instructions Current Medications Medication Instructions clonazePAM (KlonoPIN) 1 MG disintegrating tablet Take morning of surgery HYDROcodone-acetaminophen ([place]) 10-325 MG tablet Take morning of surgery levothyroxine (Synthroid, Levoxyl) 137 MCG tablet Take morning of surgery General Preoperative Instructions You will be called the business day before surgery with your arrival time Do not eat after midnight. Encouraged to drink clear liquids up until 2 hours prior to arrival time. No alcohol or smoking prior to surgery Arrive on time to avoid delays Parking/Registration procedure explained You MUST have a responsible adult available for transport to and from hospital Visitation policy for the day of surgery reviewed Bring insurance card, photo ID, along with power of industrial sweeper cleaner, guardianship or advanced directives if applicable Do not bring money, jewelry or other valuables Hibiclens bathing instructions reviewed if applicable Notify surgeon of fever, illness, any changes or if you decide not to have surgery * PAT Phone Note - Concepcion Gutierrez RN - 09/04/2024 1:44 PM EDT HPI Anupam Metz Jr. is a 59 y.o. male who presents with Pre-op Diagnosis * Dysphagia, unspecified type [R13.10] now scheduled for FLEXIBLE ESOPHAGOSCOPY WITH BALLOON DILATION (Bilateral). Date scheduled is 09/20/2024. Past Medical History[1] Family History[1] Social History[1] SURGICAL HISTORY: Surgical History[1] Allergies[1] MEDICATIONS: Current Medications[1] Concepcion Gutierrez RN [1] Past Medical History: Diagnosis Date Anxiety Dental disease edentulous Disease of thyroid gland Dysphagia GERD (gastroesophageal reflux disease) Hyperthyroidism Leukocytosis 10/02/2022 POA Downtrending. Will continue to monitor Motion sickness No natural teeth Other diseases of larynx Mass of larynx Pneumonia 07/2024-resolved Scalp laceration 06/27/2022 No open laceration on evaluation Dried blood without open wounds [1] Family History Problem Relation Name Age of Onset Breast cancer Sister FH: breast cancer Malig Hyperthermia Neg Hx Anesthesia problems Neg Hx [1] Social History Tobacco Use Smoking status: Former Current packs/day: 0.00 Average packs/day: 1 pack/day for 35.0 years (35.0 ttl pk-yrs) Types: Cigarettes Start date: 1980 Quit date: 2015 Years since quittin.5 Smokeless tobacco: Never Vaping Use Vaping status: Never Used Substance Use Topics Alcohol use: Not Currently Comment: quit drinking beer about 2 months ago Drug use: Not Currently Types: Marijuana [1] Past Surgical History: Procedure Laterality Date EXPLORATORY LAPAROTOMY 06/27/2022 ([facility]) EXPLORATORY LAPAROTOMY 10/02/2022 ([facility]) OTHER SURGICAL HISTORY N/A Direct Laryngoscopy With Biopsy from [facility] OTHER SURGICAL HISTORY N/A Biopsy of larynx from [facility] TOTAL LARYNGECTOMY N/A Total Laryngectomy from [facility] TOTAL LARYNGECTOMY TRACHEAL SURGERY [1] Allergies Allergen Reactions Gabapentin Other - please document in the comment field Tramadol Other - please document in the comment field Stomach issues [1] No current facility-administered medications for this encounter. Current Outpatient Medications: clonazePAM, Take 1 tablet (1 mg) by mouth 3 (three) times a day for 14 days. HYDROcodone-acetaminophen, TAKE ONE TABLET BY MOUTH THREE TIMES DAILY MAY CAUSE DROWSINESS levothyroxine, Take 1 tablet by mouth daily. diazePAM, TAKE ONE (1) TABLET TWICE A DAY BY ORAL ROUTE FOR 30 DAYS. (Patient not taking: Reported on 07/18/2024) docusate sodium, Take 10 mL (100 mg) by mouth 2 (two) times a day. (Patient not taking: Reported on07/18/2024) ibuprofen, Take 1 tablet (600 mg) by mouth 3 (three) times a day. (Patient not taking: Reported on 07/18/2024) methocarbamol, Take 1 tablet (500 mg) by mouth 4 (four) times a day. (Patient taking differently: Take 2 tablets by mouth as needed in the morning and 2 tablets as needed at noon and 2 tablets as needed in the evening and 2 tablets as needed before bedtime.) Kloxxado, 1. Give 1 spray in nostril for no/slow breathing or cannot wake after opioid use 2. Call 911 3. Repeat in other nostril if symptoms continue (Patient not taking: Reported on 07/18/2024) oxyCODONE-acetaminophen, 3 (three) times a day if needed. (Patient not taking: Reported on 07/18/2024) predniSONE, TAKE ONE (1) TABLET EVERY DAY BY ORAL ROUTE AFTER A MEALSFOR 30 DAYS. (Patient not taking: Reported on 07/18/2024) senna, Take 10 mL (17.6 mg) by mouth 2 (two) times a day. (Patient not taking: Reported on 07/18/2024) sulfamethoxazole-trimethoprim, TAKE 1 TABLET BY MOUTH EVERY 12 HOURS FOR 10 DAYS (Patient not taking: Reported on 07/18/2024) documented in this encounter Plan of Treatment Upcoming Encounters Date Type Department Care Team (Latest Contact Info) Description 10/25/2024 8:30 AM EDT Hospital Encounter [facility] [address] [place] [phone] Kyleigh Lyles MD [address] [phone] 10/25/2024 8:30 AM EDT - 10/25/2024 9:40 AM EDT Surgery [facility] [address] [place] [phone] Kyleigh Lyles MD [address] [phone] FLEXIBLE ESOPHAGOSCOPY WITH BALLOON DILATION 11/03/2024 11:30 AM EDT Office Visit [facility] [address] [facility], [address]nd [place] [phone] Em Bell MD [address] [facility] [address] [place] [address] 11/13/2024 3:00 PM EDT [facility] [address], [address] [place] [address] Kyleigh Lyles MD [address] [address] 12/18/2024 10:00 AM EDT Office Visit [facility] [address] [phone] Bebeto Walton MD [address] [address] 01/30/2025 10:00 AM EST Appointment [facility] PET Scan [address] [place] [phone] 01/30/2025 11:00 AM EST Appointment [facility] PET Scan [address] [place] [phone] 01/30/2025 1:45 PM EST Office Visit [facility] [address] [place] [phone] Bebeto Walton MD [address] [phone] Scheduled Procedures Name Priority Associated Diagnoses Date/Ti me DILATION, ESOPHAGUS Dysphagia, unspecified type 10/25/2024 8:30 AM EDT documented as of this encounter Goals Goal Patient Goal Type Associated Problems Recent Progress Patient-Stated? Author Guerrero fulton Goal Care Plan Autogenerated Problem No Sylvia Reyes Autovirgie fulton Goal Care Plan Autogenerated Problem No Sylvia Reyes documented as of this encounter Procedures Procedure Name Priority Date/Time Associated Diagnosis Comments DILATION, ESOPHAGUS 09/20/2024 9:54 AM ED T Dysphagia, unspecified type documented in this encounter Visit Diagnoses Diagnosis Oropharyngeal dysphagia Dysphagia, oropharyngeal phase Dysphagia, unspecified type documented in this encounter Administered Medications Inactive Administered Medications - up to 3 most recent administrations Medication Order MAR Action Action Date Dose Rate Site droperidol (Inapsine) injection 1.25 mg 1.25 mg, Intravenous, Once as needed, 1 dose, Starting on Wed09/20/24 at 1044, Until Wed09/20/24 at 1348, Routine, Recovery (Phase I only), nausea, vomiting fentaNYL (Sublimaze) injection 25 mcg 25 mcg, Intravenous, Every 5 min PRN, 2 doses, Starting on Wed09/20/24 at 1044, Until Wed09/20/24 at 1348, Routine, Recovery (Phase I only), pain score of 3-4 out of 10 HYDROmorphone (Dilaudid) injection 0.5 mg 0.5 mg, Intravenous, Every 10 min PRN, 2 doses, Starting on Wed09/20/24 at 1044, Until Wed09/20/24 at 1100, Routine, Recovery (Phase I only), pain score of 9-10 out of 10 Given 09/20/2024 11:00 AM EDT 0.5 mg Given 09/20/2024 10:49 AM EDT 0.5 mg naloxone (Narcan) injection 0.4 mg 0.4 mg, Intravenous, As needed, Starting on Wed09/20/24 at 1044, Until Wed09/20/24 at 1348, Routine, Recovery (Phase I only), respiratory depression ondansetron (Zofran) injection 4 mg 4 mg, Intravenous, Once as needed, 1 dose, Starting on Wed09/20/24 at 1044, Until Wed09/20/24 at 1348, Routine, Recovery (Phase I only), nausea, vomiting oxyCODONE (Roxicodone) immediate release tablet 10 mg 10 mg, Oral, Once as needed, 2 doses, Starting on Wed09/20/24 at 1044, Until Wed09/20/24 at 1348, Routine, Recovery (Phase I only), pain score of 6-8 out of 10 Given 09/20/2024 10:54 AM EDT 10 mg oxyCODONE (Roxicodone) immediate release tablet 5 mg 5 mg, Oral, Once as needed, 2 doses, Starting on Wed09/20/24 at 1044, Until Wed09/20/24 at 1348, Routine, Recovery (Phase I only), pain score of 3-5 out of 10 sodium chloride 0.9 % flush 10 mL 10 mL, Intravenous, Every 8 hours PRN, Starting on Wed09/20/24 at 0855, Until Wed09/20/24 at 1348, Routine, Holding - Preprocedure, line care sodium chloride 0.9 % flush 10 mL 10 mL, Intravenous, As needed, Starting on Wed09/20/24 at 0855, Until Wed09/20/24 at 1348, Routine, Holding - Preprocedure, line care documented in this encounter Active and Recently Administered Medications Times are shown in EDT. Scheduled Medication Order 09/18/2024 09/19/2024 09/20/2024 lactated Ringer's infusion (COMPLETED) 100 mL/hr, Intravenous, Once, 1 dose, On Wed09/20/24 at 0945, Routine 0959 (New Bag - Prov ider: Alexsander Eric, [facility]) lactated Ringer's infusion 20 mL/hr, Intravenous, Once, 1 dose, On Wed09/20/24 at 1130, Routine 1130 (Canceled Entry - Provider: Automatic Discharge Provider - Comment: Automatically canceled at discontinue of medication order) PRN Medication Order 09/18/2024 09/19/2024 09/20/2024 droperidol (Inapsine) injection 1.25 mg 1.25 mg, Intravenous, Once as needed, 1 dose, Starting on Wed09/20/24 at 1044, Until Wed09/20/24 at 1348, Routine, Recovery (Phase I only), nausea, vomiting fentaNYL (Sublimaze) injection 25 mcg 25 mcg, Intravenous, Every 5 min PRN, 2 doses, Starting on Wed09/20/24 at 1044, Until Wed09/20/24 at 1348, Routine, Recovery (Phase I only), pain score of 3-4 out of 10 HYDROmorphone (Dilaudid) injection 0.5 mg (COMPLETED) 0.5 mg, Intravenous, Every 10 min PRN, 2 doses, Starting on Wed09/20/24 at 1044, Until Wed09/20/24 at 1100, Routine, Recovery (Phase I only), pain score of 9-10 out of 10 1049 (Given - Provid er: Miriam Glaser RN)1100 (Given - Provider: Miriam Glaser RN) naloxone (Narcan) injection 0.4 mg 0.4 mg, Intravenous, As needed, Starting on Wed09/20/24 at 1044, Until Wed09/20/24 at 1348, Routine, Recovery (Phase I only), respiratory depression ondansetron (Zofran) injection 4 mg 4 mg, Intravenous, Once as needed, 1 dose, Starting on Wed09/20/24 at 1044, Until Wed09/20/24 at 1348, Routine, Recovery (Phase I only), nausea, vomiting oxyCODONE (Roxicodone) immediate release tablet 10 mg(Linked Group 1) 10 mg, Oral, Once as needed, 2 doses, Starting on Wed09/20/24 at 1044, Until Wed09/20/24 at 1348, Routine, Recovery (Phase I only), pain score of 6-8 out of 10 1054 (Given - Provid er: Miriam Glaser RN) oxyCODONE (Roxicodone) immediate release tablet 5 mg(Linked Group 1) 5 mg, Oral, Once as needed, 2 doses, Starting on Wed09/20/24 at 1044, Until Wed09/20/24 at 1348, Routine, Recovery (Phase I only), pain score of 3-5 out of 10 1054 (See Alternativ e - Provider: Miriam Glaser RN) sodium chloride 0.9 % flush 10 mL(Linked Group 2) 10 mL, Intravenous, Every 8 hours PRN, Starting on Wed09/20/24 at 0855, Until Wed09/20/24 at 1348, Routine, Holding - Preprocedure, line care sodium chloride 0.9 % flush 10 mL(Linked Group 2) 10 mL, Intravenous, As needed, Starting on Wed09/20/24 at 0855, Until Wed09/20/24 at 1348, Routine, Holding - Preprocedure, line care triamcinolone acetonide (Kenalog-40) injection (CANCELED) As needed, Starting on Wed09/20/24 at 1020, Until Wed09/20/24 at 1033, Routine, Intraprocedure 1020 (Given - Provid er: Kyleigh Lyles MD - Comment: throat) Linked Groups Order Group 1: oxyCODONE (Roxicodone) immediate release tablet 5 mgJump to med 5 mg, Oral, Once as needed, 2 doses, Starting on Wed09/20/24 at 1044, Until Wed09/20/24 at 1348, Routine, Recovery (Phase I only), pain score of 3-5 out of 10 Or oxyCODONE (Roxicodone) immediate release tablet 10 mgJump to med 10 mg, Oral, Once as needed, 2 doses, Starting on Wed09/20/24 at 1044, Until Wed09/20/24 at 1348, Routine, Recovery (Phase I only), pain score of 6-8 out of 10 Group 2: Insert peripheral IV (CANCELED) Once, On Wed09/20/24 at 0856, For 1 occurrence, Holding - Preprocedure And Saline lock IV (CANCELED) Once, On Wed09/20/24 at 0856, For 1 occurrence, Holding - Preprocedure And sodium chloride 0.9 % flush 10 mLJump to med 10 mL, Intravenous, Every 8 hours PRN, Starting on Wed09/20/24 at 0855, Until Wed09/20/24 at 1348, Routine, Holding - Preprocedure, line care And sodium chloride 0.9 % flush 10 mLJump to med 10 mL, Intravenous, As needed, Starting on Wed09/20/24 at 0855, Until Wed09/20/24 at 1348, Routine, Holding - Preprocedure, line care documented in this encounter Additional Health Concerns Active Problems Noted Date Diagnosed Date Autogenerated Problem 07/19/2024 Autogenerated Problem 07/19/2024 Assessment Noted Time A fall risk assessment has been complete d for the patient 06/20/2024 8:36 AM EDT A Body Mass Index follow-up plan has been documented for the patient 07/18/2024 1:40 PM EDT documented as of this encounter Care Teams Local Delivery Truck Driver Relationship Specialty Start Date End Date David Capone MD [address] [place] [place] [phone] PCP - General 11/30/22 Bebeto Walton MD [address] [facility] [address] [place] [address] Surgeon Otolaryngology 11/24/21 Gregoria Aviles MD [address] [place] [phone] Referring Physician 11/02/22 Em Bell MD [address] [place] [address] [phone] Surgeon Otolaryngology 01/13/23 documented as of this encounter
--- OUTSIDE RECORDS SUMMARY | 2024-09-20 09:59 | XMS_ITS | Encounter Summary ---
Author Organization Healthcare Address [address] [place] [address] Care Team Providers Care Lead Consultant Name Role Phone Bebeto Walton MD Unavailable Gregoria Aviles MD Unavailable [phone] David Capone MD Primary Care Provider [phone] Em Bell MD Unavailable [phone] Reason for Visit * Auth/Cert (Routine) Specialty Diagnoses / Procedures Referred By Contac t Referred To Contact Diagnoses Dysphagia, unspecified type Dysphagia, unspecified type [R13.10] Procedures CT ESOPHAGOSCOPY FLEXIBLE TRANSORAL DIAGNOSTIC CT ESOPHAGOSCOPY FLEXIBLE TRANSORAL W SUBMUCOUS INJ CT ESOPHAGOSCOPY FLEX BALLOON DILAT <30 MM DIAM FLEXIBLE ESOPHAGOSCOPY WITH BALLOON DILATION Kyleigh Lyles MD [address] [facility] [address] [place] [address] Phone: tel: fax: [facility] [address] [place] [address] Phone: tel: Referral ID Status Reason Start Date Expiration Date Visits Re quested Visits Authorized [id number] 1 1 Encounter Details Date Type Department Care Team (Late st Contact Info) Description 09/20/2024 9:59 AM EDT Anesthesia Event [facility] [address] [place] [address] Dirk Garcia MD [address] [place] [address] Anesthesia Record Procedure Summary Procedure Name Responsible [...] sounds, Positive CO2, Atraumatic Dentition; Placed by: DIRECTOR DIGITAL CATALOGUE; Removal Date: 09/20/24; Removal Time: 1029 09/20/24 1008 by Alexsander rEic CRNA 09/20/24 1029 by Alexsander Eric CRNA [...] place to sleep or slept in a penitentiary (including now)? 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 1 10/02/2022 CAGE Questionnaire Score 2 023 Utilities Answer Date Recorded In the past 12 months has th e [employer], gas, oil, or water company threatened to [...] CRNA - 09/20/2024 11:11 AM EDT Patient: Anuapm Metz Jr. Anesthesia Type: general Vitals Value [...] and Staff Patient location during procedure: OR DIRECTOR DIGITAL CATALOGUE: Alexsander Eric CRNA Performed: DIRECTOR DIGITAL CATALOGUE Patient Condition Indications for airway management: anesthesia [...] 9:22 AM EDT Anesthesiologist: Dirk Garcia MD DIRECTOR DIGITAL CATALOGUE: Alexsander Eric CRNA Warehouse Pricing And Inventory Clerk: (Unknown) Patient: Anupam Metz Jr. HPI Anupam [...] FLEXIBLE ESOPHAGOSCOPY WITH BALLOON DILATION (Bilateral) Location: [facility] Surgeons: Kyleigh Lyles MD [...] 100 mg, Oral, 2 times daily HYDROcodone-acetaminophen ([place]) 10-325 MG tablet TAKE ONE TABLET BY [...] Component Value Date PHART 7.27 (L) 06/27/2022 [id number] 46 06/27/2022 PO2ART 194 (H) 06/27/2022 SO2ART 100 (H) 06/27/2022 BEART -5.6 (L) 06/27/2022 [id number] 24 02/12/2023 HCTART 26.0 (L) 06/27/2022 SODIUMART 137 06/27/2022 POTASSIUMART 4.6 06/27/2022 POCTCL 107 06/27/2022 POCGLU 147 (H) 06/27/2022 IONCALART 3.8 (L) 06/27/2022 LACTATE 0.9 02/12/2023 Lab Results Component Value Date PH 7.36 02/12/2023 PCO2 42 02/12/2023 PO2 218 (H) 02/12/2023 [id number] 100 (H) 02/12/2023 BASEEXC -1.7 02/12/2023 HCTSYR 23.5 (L) 02/12/2023 KSYR 4.4 02/12/2023 CLSYR 105 02/12/2023 GLUSYR 129 (H) 02/12/2023 CAION 4.3 (L) 02/15/2023 LACTATE 0.9 02/12/2023 ECHO No echocardiogram results found for the past 12 months PFTs No results found for: SQB3UUC , AGM1SLUL , ZDT9QMV , FVCPRED BP Readings from Last 5 [...] Plan ASA 3 Plan was reviewed with: DIRECTOR DIGITAL CATALOGUE Anesthesia technique(s) discussed with the patient/family: general [...] Laterality Date EXPLORATORY LAPAROTOMY 06/27/2022 ([facility]) EXPLORATORY LAPAROTOMY 10/02/2022 ([facility]) OTHER SURGICAL HISTORY N/A Direct Laryngoscopy With Biopsy from [facility] OTHER SURGICAL HISTORY N/A [facility] l[facility] from [facility] TOTAL LARYNGECTOMY N/A Total [...] [facility] [address] [place] [address] Kyleigh Lyles MD [address] [address] 10/25/2024 8:30 AM EDT - 10/25/2024 9:40 AM EDT Surgery [facility] [address] [place] [phone] Kyleigh Lyles MD [address] [phone] FLEXIBLE ESOPHAGOSCOPY WITH BALLOON DILATION 11/03/2024 11:30 AM EDT Office Visit [facility] [address] [facility], 2nd [place] [address] Em Bell MD [address] [facility] 2nd [place] [address] 11/13/2024 3:00 PM EDT [facility] [address], 3rd [place] [address] Kyleigh Lyles MD [address] [address] 12/18/2024 10:00 AM EDT Office Visit [facility] 800 [facility] [address] [place] [address] Bebeto Walton MD [address] [phone] 01/30/2025 10:00 AM EST Appointment [facility] PET Scan [address] [place] [phone] 01/30/2025 11:00 AM EST Appointment [facility] PET Scan [address] [place] [address] 01/30/2025 1:45 PM EST Office Visit [facility] [address] [facility] [address]nd [place] [phone] Bebeto Walton MD [address] [phone] Scheduled Procedures Name Priority Associated Diagnoses Date/Ti [...] ANESTHESIA PLACEHOLDER Routine 09/20/2024 10:[address] AN ELECTIVE ENDOTRACHEAL AIRWAY Routine 09/20/2024 10:08 AM EDT documented in this encounter Results * CT AN ELECTIVE ENDOTRACHEAL AIRWAY, PB ANESTHESIA PLACEHOLDER (09/20/2024 10:08 AM EDT) Narrative Alexsander Eric CRNA - 09/20/2024 10:08 AM EDT Alexsander Eric CRNA 09/20/2024 10:18 AM Airway Date/Time: 09/20/2024 10:08 AM Reason: elective Airway not difficult General Information and Staff Patient location during procedure: OR DIRECTOR DIGITAL CATALOGUE: Alexsander Eric CRNA Performed: DIRECTOR DIGITAL CATALOGUE Patient Condition Indications for airway management: anesthesia [...] documented as of this encounter Care Teams Lead Consultant Relationship Specialty Start Date End Date David Capone MD [address] [place] [address] PCP - General 11/30/22 Bebeto Walton MD [address] [facility] [address] [place] [address] Surgeon Otolaryngology 11/24/21 Gregoria Aviles MD [address] [place] [address] Referring Physician 11/02/22 Em Bell MD [address] [place] [address] [phone] Surgeon Otolaryngology 01/13/23 documented as of this encounter
--- OUTSIDE RECORDS SUMMARY | 2024-09-20 10:10 | XMS_ITS | Encounter Summary ---
Author Organization Healthcare Address [address] [place] [address] Care Team Providers Care Stock Clerk Self Service Store Name Role Phone Bebeto Walton MD Unavailable Gregoria Aviles MD Unavailable [phone] David Capone MD Primary Care Provider [phone] Em Bell MD Unavailable [phone] Reason for Visit * Auth/Cert (Routine) Specialty Diagnoses / Procedures Referred By Contac t Referred To Contact Diagnoses Dysphagia, unspecified type Dysphagia, unspecified type [R13.10] Procedures ME ESOPHAGOSCOPY FLEXIBLE TRANSORAL DIAGNOSTIC ME ESOPHAGOSCOPY FLEXIBLE TRANSORAL W SUBMUCOUS INJ ME ESOPHAGOSCOPY FLEX BALLOON DILAT <30 MM DIAM FLEXIBLE ESOPHAGOSCOPY WITH BALLOON DILATION Kyleigh Lyles MD [address] [facility] [address] [place] [address] Phone: tel: fax: [facility] [address] [place] [address] Phone: tel: Referral ID Status Reason Start Date Expiration Date Visits Re quested Visits Authorized [id number] 1 1 Encounter Details Date Type Department Care Team (Late st Contact Info) Description 09/20/2024 10:10 AM EDT - 09/20/2024 11:20 AM EDT Surgery [facility] [address] [place] [address] Kyleigh Lyles MD [address] [place] [address] FLEXIBLE ESOPHAGOSCOPY WITH BALLOON DILATION Surgery Details Date/Time Status Location OR Service Patient Class Case Class Case Type Trauma Case? 09/20/2024 10:10 AM Posted RANDI CAS OR 4OR06 [facility] Outpatient Surgery E-Electiv e Panel 1 [...] place to sleep or slept in a alf (including now)? No 02/15/2023 CAGE ASSESSMENT Answer [...] drink first t pavan in the morning (EYE-CAPABILITY LEAD) to steady your nerves or to get [...] a day. 100 mL 01/01/2024 HYDROcodone-acetami nophen ([place]) 10-325 MG tablet TAKE ONE TABLET BY [...] 59 y.o. 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 Lombardi ANESTHESIA: General ASA: III OR TEAM: Anesthesiologist: Dirk Garcia MD GEODETIC SURVEYOR: Alexsander Eric CRNA Supervisor General: Mary Mishra Supervisor General: Ruchi Ramírez RN Scrub Person: Rima Potter [...] He underwent adjuvant radiation therapy completed in [place] on 04/01/2017. He was found to have [...] 06/20/2024), Disp: 100 mL, Rfl: 0 HYDROcodone-acetaminophen ([place]) 10-325 MG tablet, TAKE ONE TABLET BY [...] pharyngoscopy INDICATION: Dysphagia PROVIDER: Kyleigh Lyles MD Clerk Of Court: Milli ANESTHESIA: Local (lidocaine with afrin) PROCEDURE [...] disintegrating tablet Take morning of surgery HYDROcodone-acetaminophen ([place]) 10-325 MG tablet Take morning of surgery [...] card, photo ID, along with power of regulatory attorney, guardianship or advanced directives if applicable [...] History: Procedure Laterality Date EXPLORATORY LAPAROTOMY 06/27/2022 ([facility]) EXPLORATORY LAPAROTOMY 10/02/2022 ([facility]) OTHER SURGICAL HISTORY N/A Direct Laryngoscopy With Biopsy from [facility] OTHER SURGICAL HISTORY N/A Biopsy [facility] l[facility] from [facility] TOTAL LARYNGECTOMY N/A Total Laryngectomy from [facility] TOTAL LARYNGECTOMY TRACHEAL SURGERY [1] Allergies Allergen [...] [facility] [address] [place] [address] Kyleigh Lyles MD [address] [facility] [address] [place] [address] 10/25/2024 8:30 AM EDT - 10/25/2024 9:40 AM EDT Surgery [facility] [address] [place] [phone] Kyleigh Lyles MD [address] [phone] FLEXIBLE ESOPHAGOSCOPY WITH BALLOON DILATION 11/03/2024 11:30 AM EDT Office Visit [facility] [address] [facility], 2nd [place] [phone] Em Bell MD 800 [facility] [address] [place] [phone] 11/13/2024 3:00 PM EDT Office Visit [facility] [address] [facility] 3rd [place] [phone] Kyleigh Lyles MD [address] [phone] 12/18/2024 10:00 AM EDT Office Visit [facility] 800 [facility] [address]nd [place] [phone] Bebeto Walton MD [address] [phone] 01/30/2025 10:00 AM EST Appointment [facility] PET Scan [address] [place] [phone] 01/30/2025 11:00 AM EST Appointment [facility] PET Scan [address] [place] [address] 01/30/2025 1:45 PM EST Office Visit [facility] [address] [phone] Bebeto Walton MD [address] [phone] Scheduled Procedures Name Priority Associated Diagnoses Date/Ti [...] On Wed09/20/24 at 0945, Routine 0959 ([facility] ider: Alexsander Eric, [facility]) lactated Ringer's infusion 20 mL/hr, Intravenous, [...] documented as of this encounter Care Teams Stock Clerk Self Service Store Relationship Specialty Start Date End Date David Capone MD [address] [place] [address] PCP - General 11/30/22 Bebeto Walton MD 740 [facility] [address] [place] [address] Surgeon Otolaryngology 11/24/21 Gregoria Aviles MD 8 [place] [address] Referring Physician 11/02/22 Em Bell MD 800 [facility] Cancer [address] [phone] Surgeon Otolaryngology 01/13/23 documented as of this encounter
--- OUTSIDE RECORDS SUMMARY | 2024-10-05 14:00 | XMS_ITS | Encounter Summary ---
Author Organization Healthcare Address [address] [place] [address] Care Team Providers Care Ceramics Test Engineer Name Role Phone Bebeto Walton MD Unavailable Gregoria Aviles MD Unavailable [phone] David Capone MD Primary Care Provider [phone] Em Bell MD Unavailable [phone] Reason for Referral * Imaging (Routine) - Pending Review Specialty Diagnoses / Procedures Referred By Contac t Referred To Contact Radiology Diagnoses Primary tongue squamous cell carcinoma Procedures PET/CT FDG Skull Base To Mid Thigh Bebeto Walton MD [address] [address] Phone: tel: fax: Referral ID Status Reason Start Date Expiration Date V isits Requested Visits Authorized [id number] Pending Review 10/05/2024 04/06/2026 2 2 Reason for Visit * Reason Comments Follow-up Encounter Details Date Type Department Care Team ([facility] Contact Info) Description 10/05/2024 2:00 PM EDT Office Visit [facility] [address] [place] [phone] Bebeto Walton MD [address] [phone] Primary tongue squamous cell carcinoma Social History [...] drink first t pavan in the morning (EYE-PIPE FITTINGS MOLDER) to steady your nerves or to get [...] He underwent adjuvant radiation therapy completed in [place] on 04/01/2017. 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 He was seen in my clinic on 05/28/2017 and missed all his appointments with me however he continuedto follow-up in [place]. He started complaining of right tongue pain [...] with the ALT flap reconstruction, submental neck [id number]/25/2024 Family history: reviewed and consistent with breast [...] place of right tongue with normal appearing [place] left tongue. Tongue is limiting the complete [...] to contactme. Bebeto Walton MD MS FACS Showroom Salesperson Head & Neck Oncology Thyroid/Parathyroid Surgery Rhinology [...] 8:30 AM EDT Hospital Encounter [facility] [address] [place] [address] Kyleigh Lyles MD [address] [phone] 10/25/2024 8:30 AM EDT - 10/25/2024 9:40 AM EDT Surgery [facility] [address] [place] [address] Kyleigh Lyles MD [address] [phone] FLEXIBLE ESOPHAGOSCOPY WITH BALLOON DILATION 11/03/2024 11:30 AM EDT Office Visit [facility] [address] [facility], [address]nd [place] [address] Em Bell MD 800 [facility] [address] [place] [phone] 11/13/2024 3:00 PM EDT [facility] Visit [facility] [address] [place] [address] Kyleigh Lyles MD [address] [phone] 12/18/2024 10:00 AM EDT Office Visit [facility] [address] [facility], [address] [place] [phone] Bebeto Walton MD [address] [address] 01/30/2025 10:00 AM EST Appointment [facility] PET Scan [address] [place] [address] 01/30/2025 11:00 AM EST Appointment [facility] PET Scan [address] [place] [address] 01/30/2025 1:45 PM EST Office Visit [facility] [address] [facility], [address] [place] [phone] Bebeto Walton MD [address] [address] Scheduled Orders Name Type Priority [...] documented as of this encounter Care Teams Ceramics Test Engineer Relationship Specialty Start Date End Date David Capone MD [address] [place] [address] PCP - General 11/30/22 Bebeto Walton MD [address] [phone] Surgeon Otolaryngology 11/24/21 Gregoria Aviles MD [address] [phone] Referring Physician 11/02/22 Em Bell MD [address] [address] Surgeon Otolaryngology 01/13/23 documented as of this encounter
--- OUTSIDE RECORDS SUMMARY | 2024-10-06 10:50 | XMS_ITS | Encounter Summary ---
Author Organization Healthcare Address [address] [place] [address] Care Team Providers Care Splitter Hand Name Role Phone Bebeto Walton MD Unavailable Gregoria Aviles MD Unavailable [phone] David Capone MD Primary Care Provider [phone] Em Bell MD Unavailable [phone] Reason for Visit * Reason Comments Post-op Encounter Details Date Type Department Care Team (Latest Contact Info) Description 10/06/2024 10:50 AM EDT Office Visit [place] [facility] [address], 3rd [place] [address] Kyleigh Lyles MD [address] [place] [address] Oropharyngeal dysphagia (Primary Dx) Social [...] place to sleep or slept in a custodial (including now)? No 02/15/2023 CAGE ASSESSMENT Answer [...] drink first t pavan in the morning (EYE-GATHERING MACHINE SETTER) to steady your nerves or to get [...] He underwent adjuvant radiation therapy completed in [place] on 04/01/2017. He was found to have [...] 8:30 AM EDT Hospital Encounter [facility] [address] [place] [phone] Kyleigh Lyles MD [address] [facility]00 [place] [address] 10/25/2024 8:30 AM EDT - 10/25/2024 9:40 AM EDT Surgery [facility] 800 [place] [phone] Kyleigh Lyles MD [address] [address] FLEXIBLE ESOPHAGOSCOPY WITH BALLOON DILATION 11/03/2024 11:30 AM EDT Office Visit [facility] Head[facility] Neck & Respiratory 800 [facility], 2nd [place] [phone] Em Bell MD 800 [facility] [address] [place] [phone] 11/13/2024 3:00 PM EDT Office Visit [place] [facility] [address], 3rd [place] [address] Kyleigh Lyles MD [address] [phone] 12/18/2024 10:00 AM EDT Office Visit [facility] Res[facility] 800 [facility], 2nd [place] [phone] Bebeto Walton MD [address] [address] 01/30/2025 10:00 AM EST Appointment [facility] PET Scan 800 [place] [phone] 01/30/2025 11:00 AM EST Appointment [facility] PET Scan 800 [place] [phone] 01/30/2025 1:45 PM EST Office Visit [facility] Respiratory 800 [facility], 2nd [place] [address] Bebeto Walton MD [address] [facility] [address] [place] [address] Scheduled Procedures Name Priority Associated Diagnoses Date/Ti [...] documented as of this encounter Care Teams Splitter Hand Relationship Specialty Start Date End Date David Capone MD 1551 [facility] 1551 [place] [address] PCP - General 11/30/22 Bebeto Walton MD [address] [facility] [address] [place] [address] Surgeon Otolaryngology 11/24/21 Gregoria Aviles MD 8 [place] [address] Referring Physician 11/02/22 Em Bell MD 800 [facility] [address] [phone] Surgeon Otolaryngology 01/13/23 documented as of this encounter
--- OUTSIDE RECORDS SUMMARY | 2024-10-19 11:32 | XMS_ITS | Encounter Summary ---
Author Organization Healthcare Address [address] [place] [address] Care Team Providers Care Stripper And Opaquer Apprentice Name Role Phone Ana Dickson SATELLITE COMMUNICATIONS ENGINEER Primary Care Provider [phone] Bebeto Walton MD Unavailable Gregoria Aviles MD Unavailable [phone] David Capone MD Primary Care Provider [phone] Em Bell MD Unavailable [phone] Encounter Details Date Type Department Care Team (Late st Contact Info) Description 01/25/2017 Orders Only External Location 800 [place] [phone] Provider, External Social History Tobacco Use Types [...] [facility] 800 [place] [phone] Kyleigh Lyles MD [address] [facility] [address] [place] [address] 10/25/2024 8:30 AM EDT - 10/25/2024 9:40 AM EDT Surgery [facility] 800 [place] [phone] Kyleigh Lyles MD [address] [phone] FLEXIBLE ESOPHAGOSCOPY WITH BALLOON DILATION 11/03/2024 11:30 AM EDT Office Visit [facility] Respiratory 800 [facility] 2nd [place] [phone] Em Bell MD 800 [facility] [address] [place] [phone] 11/13/2024 3:00 PM EDT Office Visit [place] [facility] [address], 3rd [place] [address] Kyleigh Lyles MD [address] [address] 12/18/2024 10:00 AM EDT Office Visit [facility] [address] [address] Bebeto Walton MD [address] [address] 01/30/2025 10:00 AM EST Appointment [facility] PET Scan 800 [place] [address] 01/30/2025 11:00 AM EST Appointment [facility] PET Scan 800 [place] [phone] 01/30/2025 1:45 PM EST Office Visit [facility] [address] [phone] Bebeto Walton MD [address] [place] [address] Scheduled Procedures Name Priority Associated [...] on filedocumented in this encounter Care Teams Stripper And Opaquer Apprentice Relationship Specialty Start Date End Date Ana Dickson APRN PCP - General 07/19/20 11/29/22 David Capone MD 1551 [facility] 1551 [place] [address] PCP - General 11/30/22 Bebeto Walton MD [address] [place] [address] Surgeon Otolaryngology 11/24/21 Gregoria Aviles MD 8 [place] [address] Referring Physician 11/02/22 Em Bell MD 800 [facility] [address] [address] Surgeon Otolaryngology 01/13/23 documented as of this encounter
--- OUTSIDE RECORDS SUMMARY | 2024-10-19 11:32 | XMS_ITS ---
Author Organization Healthcare Address [address] [place] [address] Care Team Providers Care District Gauger Name Role Phone Bebeto Walton MD Unavailable Gregoria Aviles MD Unavailable [phone] David Capone MD Primary Care Provider [phone] Em Bell MD Unavailable [phone] Active Problems Problem Noted Date Diagnosed Date [...] completed Follow up with outpatient trauma surgery [facility] clinic in 4 weeks following discharge for [...]
--- OUTSIDE RECORDS SUMMARY | 2024-10-19 11:32 | XMS_ITS | Encounter Summary ---
Author Organization Healthcare Address [address] [place] [address] Care Team Providers Care Rag Cutting Machine Operator Name Role Phone Bebeto Walton MD Unavailable Gregoria Aviles MD Unavailable [phone] David Capone MD Primary Care Provider [phone] Em Bell MD Unavailable [phone] Encounter Details Date Type Department Care [...] place to sleep or slept in a group home (including now)? No 02/15/2023 CAGE ASSESSMENT Answer [...] drink first t pavan in the morning (EYE-STATOR WINDER) to steady your nerves or to get rid of a hangover? 1 10/02/2022 CAGE Questionnaire Score 2 023 Utilities Answer Date Recorded In the past 12 months has th e [employer] gas, oil, or water company threatened to [...] 8:30 AM EDT Hospital Encounter [facility] [address] [place] [phone] Kyleigh Lyles MD [address] [address] 10/25/2024 8:30 AM EDT - 10/25/2024 9:40 AM EDT Surgery [facility] 800 [place] [phone] Kyleigh Lyles MD [address] [phone] FLEXIBLE ESOPHAGOSCOPY WITH BALLOON DILATION 11/03/2024 11:30 AM EDT Office Visit [facility] Respiratory 800 [facility], 2nd [place] [phone] Em Bell MD 800 [facility] [address] [place] [phone] 11/13/2024 3:00 PM EDT Office Visit [place] [facility] [address], 3rd [place] [address] Kyleigh Lyles MD [address] [address] 12/18/2024 10:00 AM EDT Office Visit [facility] Res[facility] 800 [facility], 2nd [place] [address] Bebeto Walton MD [address] [address] 01/30/2025 10:00 AM EST Appointment [facility] PET Scan 800 [place] [address] 01/30/2025 11:00 AM EST Appointment [facility] PET Scan 800 [place] [phone] 01/30/2025 1:45 PM EST Office Visit [facility] Res[facility] 800 [facility], 2nd [place] [phone] Bebeto Walton MD [address] [address] Scheduled Procedures Name Priority Associated [...] documented as of this encounter Care Teams Rag Cutting Machine Operator Relationship Specialty Start Date End Date David Capone MD [facility] [place] [address] PCP - General 11/30/22 Bebeto Walton MD [address] [phone] Surgeon Otolaryngology 11/24/21 Gregoria Aviles MD 8 [place] [address] Referring Physician 11/02/22 Em Bell MD 800 [facility] [address] [phone] Surgeon Otolaryngology 01/13/23 documented as of this encounter
--- OUTSIDE RECORDS SUMMARY | 2024-10-19 11:32 | XMS_ITS | CCD ---
Author Name Interface, [id number] lit Address [address] [place] [address] Organization [facility] Address [address] [place] [address] Care Team Providers Care Heavy Duty Diesel Mechanic Name Role Phone Manuel WONG, Yury Chandler Unavailable Unavailable Reason for Visit Social History
--- OUTSIDE RECORDS SUMMARY | 2024-10-19 11:32 | XMS_ITS | Clinical Summary ---
Author Organization Healthcare Address [address] [place] [address] Care Team Providers Care Knapsack Sprayer Name Role Phone Bebeto Walton MD Unavailable Gregoria Aviles MD Unavailable [phone] David Capone MD Primary Care Provider [phone] Em Bell MD Unavailable [phone] Allergies Active Allergy Reactions Criticality Noted [...] days. 45 tablet 03/30/19 Active HYDROcodone-acetam inophen ([place]) 10-325 MG tablet TAKE ONE TABLET BY [...] completed Follow up with outpatient trauma surgery [facility] clinic in 4 weeks following discharge [...] Encounters Date Type Department Care Team Description 10/06/2024 10:50 AM EDT Office Visit [place] [facility] Ot[facility] [address], 3rd [place] [address] Kyleigh Lyles MD Oropharyngeal dysphagia (Primary Dx) 10/06/2024 Travel 10/05/2024 2:00 PM EDT Office Visit [facility] Respiratory [address], 2nd [place] [address] Bebeto Walton MD Primary tongue squamous cell carcinoma 10/05/2024 Travel 10/02/2024 Social Work Psych Oncology 800 [place] [phone] MeghanMadalyn cummings Darion 09/20/2024 10:10 AM EDT - 09/20/2024 11:20 AM EDT Surgery [address] [phone] Kyleigh Lyles MD FLEXIBLE ESOPHAGOSCOPY WITH BALLOON DILATION 09/20/2024 9:59 AM EDT Anesthesia Event [address] [phone] Dirk Garcia MD 09/20/2024 8:43 AM EDT - 09/20/2024 11:47 AM EDT Hospital Encounter [address] [phone] Kyleigh Lyles MD Discharge Disposition: Home or Self Care 09/19/2024 Travel from Last 3 Months Immunizations Immunization Administration [...] place to sleep or slept in a jail (including now)? No 02/15/2023 CAGE ASSESSMENT Answer [...] drink first t pavan in the morning (EYE-EDI PROGRAMMER ANALYST) to steady your nerves or to get rid of a hangover? 1 10/02/2022 CAGE Questionnaire Score 2 023 Utilities Answer Date Recorded In the past 12 months has th e electric, gas, oil, or water [employer] threatened to shut off services in your [...] Pulse 76 10/06/2024 10:46 AM EDT Temperature 37 C (98.6 F) 10/05/2024 1:07 PM EDT Respiratory Rate 12 10/05/2024 1:07 PM EDT Oxygen Saturation 95% 10/05/2024 1:07 PM EDT Inhaled Oxygen Concentration - - Weight 91.6 kg (202 lb) 10/06/2024 10:46 AM EDT Height 190.5 cm (6' 3 ) 10/06/2024 10:46 AM EDT Body Mass Index 25.25 10/06/2024 10:46 AM EDT Plan of Treatment Upcoming Encounters Date Type Department Care Team (Latest Contact Info) Description 10/25/2024 8:30 AM EDT Hospital [facility] 800 [place] [phone] Klyeigh Lyles MD [address] [phone] 10/25/2024 8:30 AM EDT - 10/25/2024 9:40 AM EDT Surgery [facility] 800 [place] [phone] Kyleigh Lyles MD [address] [phone] FLEXIBLE ESOPHAGOSCOPY WITH BALLOON DILATION 11/03/2024 11:30 AM EDT Office Visit [facility] Ne[facility] & Respiratory 800 [facility], 2nd [place] [phone] Em Bell MD [address] [facility] 2nd [place] [address] 11/13/2024 3:00 PM EDT Office Visit [place] [facility] [address], 3rd [place] [phone] Kyleigh Lyles MD [address] [address] 12/18/2024 10:00 AM EDT Office Visit [facility] Res[facility] 800 [facility] 2nd [place] [address] Bebeto Walton MD [address] [phone] 01/30/2025 10:00 AM EST Appointment [facility] PET Scan [address] [place] [phone] 01/30/2025 11:00 AM EST Appointment [facility] PET Scan [address] [place] [phone] 01/30/2025 1:45 PM EST Office Visit [facility] Respiratory [address] [place] [address] 2nd [place] [phone] Bebeto Walton MD [address] [phone] Scheduled Procedures Name Priority Associated Diagnoses Date/Ti me DILATION, ESOPHAGUS Dysphagia, unspecified type 10/25/2024 8:30 AM EDT Health Maintenance Due Date Last Done Comments [facility]-Depression Screening 1967 [facility]-HIV Screening 1967 [facility]-Hepatitis C Screening 1965 [facility]-Infant/Child/Adol SDOH Screenings 1965 [facility]- SDOH Screenings 05/26/1985 [facility]-Adult SDOH Screenings 05/26/1985 [facility]-Hepatitis B Vaccines (1 of 3 - 19+ 3-dose series) 05/26/1986 [facility]-Zoster Vaccines (1 of 2) 05/26/1986 CT Colonography 05/26/2012 Colonoscopy 05/26/2012 FIT-DNA 05/26/2012 FIT 05/26/2012 FOBT 05/26/2012 Sigmoidoscopy 05/26/2012 [facility]-Colorectal Cancer Screening 05/26/2012 [id number] Vaccine ( season) 2023 01/22/2021, 06/06/2020, 05/09/2020 [facility]-Influenza Vaccine (#1) 2024 01/17/2021, [facility]-Lung Cancer Screening 06/20/20252024, 12/28/2022, 10/02/2022 [facility]-DTaP,Tdap,and Td Vaccines (2 - Td or Tdap) 09/23/2030 09/23/2020 [facility]-HIB Vaccines Aged Out 07/01/2022 No longer e ligible based on patient's age to complete this topic [facility]-Pneumococcal Vaccine: 50+ Years Completed 07/01/2022, 12/28/2018 [facility]-Diabetes: Hemoglobin A1C Discontinued 10/03/2022 [facility]-Obesity Intervention Completed 025, 10/05/2024, 07/18/2024, Additional history exists HPV Vaccines Aged Out No longer eligi [...] ANESTHESIA PLACEHOLDER Routine 09/20/2024 10:08 AM EDT SC AN ELECTIVE ENDOTRACHEAL AIRWAY Routine 09/20/2024 10:08 AM EDT DILATION, ESOPHAGUS 09/20/2024 9 :54 AM EDT Dysphagia, unspecified type CT CHEST W IV CONTRAST STAT 06/20/2024 8:22 AM EDT Primary tongue squamous cell carcinoma Oropharyngeal dysphagia HEMOGLOBIN A1C Add-On 10/03/2022 12:11 AM EDT from Last 3 Months or Most Recently Relevant to Health Maintenance Results * SC AN ELECTIVE ENDOTRACHEAL AIRWAY, PB ANESTHESIA PLACEHOLDER (09/20/2024 10:08 AM EDT) Narrative Alexsander Eric CRNA - 09/20/2024 10:08 AM EDT Alexsander Eric CRNA 09/20/2024 10:18 AM Airway Date/Time: 09/20/2024 10:08 AM Reason: elective Airway not difficult General Information and Staff Patient location during procedure: [place] ELECTRIC TRANSFER OPERATOR: Alexsander Eric CRNA Performed: ELECTRIC TRANSFER OPERATOR Patient Condition Indications for airway management: anesthesia [...] Ty Morley MD on 06/20/2024 8:42 AM us Bebeto Walton MD IMG CT PROCEDURES Final Result * (ABNORMAL) Hemoglobin A1c (10/03/2022 12:11 AM EDT) Hemoglobin A1c 5.7(H) <5.7 % 10/03/2022 7:11 AM EDT [facility] Blood Venous blood specimen / [...] Adults <6.0% Children and Adolescents <7.5% Source: [place] [employer]. Standards of medical care in diabetes,2017. Diabetes Care.2017:40 (suppl 1):S1-S135. HbA1c assay performed by an ion-exchange chromatography method that is certified traceable to the DCCT. us Malachi Gomez MD LAB BLOOD ORDERABLES Final Res ult [facility] [address] [place] [phone] from Last 3 Months or Most Recently Relevant to Health Maintenance Additional Health Concerns Active Problems Noted Date Diagnosed Date Autogenerated Problem 07/19/2024 Autogenerated Problem 07/19/2024 Insurance [facility] MEDICAID Advance Directives * Full [...] Patient has decision-making capacity? Yes Care Teams Knapsack Sprayer Relationship Specialty Start Date End Date David Capone MD 1551 [facility] 1551 [place] [address] PCP - General 11/30/22 Bebeto Walton MD [address] [facility] [address] [place] [address] Surgeon Otolaryngology 11/24/21 Gregoria Aviles MD 8 [place] [address] Referring Physician 11/02/22 Em Bell MD [address] [address] Surgeon Otolaryngology 01/13/23
--- OUTSIDE RECORDS SUMMARY | 2024-10-19 11:32 | XMS_ITS | CCD ---
Author Name Interface, [id number] lit Address [address] [place] [address] Organization [facility] Address [address] [place] [address] Care Team Providers Care Glass Silverer Name Role Phone Manuel WONG, Yury Chandler Unavailable Unavailable Reason for Visit Social History
--- OUTSIDE RECORDS SUMMARY | 2024-10-19 11:32 | XMS_ITS | Encounter Summary ---
Author Organization Healthcare Address [address] [place] [address] Care Team Providers Care Inside Sales Account Manager Name Role Phone Ana Dickson FRAME CHANGER Primary Care Provider Bebeto Walton MD Unavailable Gregoria Aviles MD Unavailable [phone] David Capone MD Primary Care Provider [phone] Em Bell MD Unavailable [phone] Encounter Details Date Type Department Care Team (Late st Contact Info) Description 10/05/2022 Lab Requisition [facility] 800 [place] [address] Yajaira Pisano MD [address] [address] Encounter for general adult medical [...] drink first t pavan in the morning (EYE-ARBORER) to steady your nerves or to get [...] Description 10/25/2024 8:30 AM EDT Hospital Encounter [facility] 800 [place] [phone] Kyleigh Lyles MD [address] [place] [phone] 10/25/2024 8:30 AM EDT - 10/25/2024 9:40 AM EDT Surgery [facility] 800 [place] [phone] Kyleigh Lyles MD [address] [place] [address] FLEXIBLE ESOPHAGOSCOPY WITH BALLOON DILATION 11/03/2024 11:30 AM EDT Office Visit [facility] [address] [phone] Em Bell MD 800 [facility] [place] [facility] [address] [place] [phone] 11/13/2024 3:00 PM EDT Office [facility] [place] [facility] [address], 3rd [place] [address] Kyleigh Lyles MD [address] [phone] 12/18/2024 10:00 AM EDT Office Visit [facility] [address] [address] Bebeto Walton MD [address] [address] 01/30/2025 10:00 AM EST Appointment [facility] PET Scan [address] [place] [phone] 01/30/2025 11:00 AM EST Appointment [facility] PET Scan 800 [place] [address] 01/30/2025 1:45 PM EST Office Visit [facility] [address] [address] Bebeto Walton MD [address] [phone] Scheduled Procedures Name Priority Associated Diagnoses Date/Ti [...] 12:00 PM EDT 10/05/2022 5:45 PM EDT us Yajaira Alberto MD LAB MICROBIOLOGY - GENERAL ORDERABLES Final Result [facility] 800 [place] [address] documented in this encounter Visit Diagnoses Diagnosis Encounter for general adult medical examination without abnormal findings Dysphagia, unspecified type documented in this encounter Care Teams Inside Sales Account Manager Relationship Specialty Start Date End Date Ana Dickson APRN PCP - General 07/19/20 11/29/22 David Capone MD 1551 [facility] 1551 [place] [address] PCP - General 11/30/22 Bebeto Walton MD 740 [facility] [address] [place] [address] Surgeon Otolaryngology 11/24/21 Gregoria Aviles MD 8 [place], [place] [phone] Referring Physician 11/02/22 Em Bell MD 800 [facility] Cancer [address] [address] Surgeon Otolaryngology 01/13/23 documented as of this encounter
--- OUTSIDE RECORDS SUMMARY | 2024-10-19 11:32 | XMS_ITS | Encounter Summary ---
Author Organization Healthcare Address [address] [place] [address] Care Team Providers Care Delivery And Installation Subcontractor Name Role Phone Bebeto Walton MD Unavailable Gregoria Aviles MD Unavailable [phone] David Capone MD Primary Care Provider [phone] Em Bell MD Unavailable [phone] Encounter Details Date Type Department Care Team (Late st Contact Info) Description 02/15/2023 Lab Requisition [facility] [address] [place] [address] Khalif Fountain MD [address] [facility] [address] [place] [phone] Encounter for general adult medical examination without [...] place to sleep or slept in a longterm (including now)? No 02/15/2023 CAGE ASSESSMENT Answer [...] drink first t pavan in the morning (EYE-COAL WASHER) to steady your nerves or to get rid of a hangover? 1 10/02/2022 CAGE Questionnaire Score 2 023 Utilities Answer Date Recorded In the past 12 months has th [place] [employer] electric, gas, oil, or water [employer] threatened to shut off services in your [...] Encounter [facility] [address] [place] [phone] Kyleigh Lyles MD [address] [address] 10/25/2024 8:30 AM EDT - 10/25/2024 9:40 AM EDT Surgery [facility] 800 [place] [address] Kyleigh Lyles MD [address] [phone] FLEXIBLE ESOPHAGOSCOPY WITH BALLOON DILATION 11/03/2024 11:30 AM EDT Office Visit [facility] 800 [facility], 2nd [place] [address] Em Bell MD 800 [facility] [place] [facility] [address] [place] [phone] 11/13/2024 3:00 PM EDT Office Visit [place] [facility] [address], 3rd [place] [address] Kyleigh Lyles MD [address] [phone] 12/18/2024 10:00 AM EDT Office Visit [facility] 800 [facility] 2nd [place] [address] Bebeto Walton MD [address] [address] 01/30/2025 10:00 AM EST Appointment [facility] PET Scan 800 [place] [phone] 01/30/2025 11:00 AM EST Appointment [facility] PET Scan 800 [place] [phone] 01/30/2025 1:45 PM EST Office Visit [facility] [address] [phone] Bebeto Walton MD [address] [phone] Scheduled Procedures Name Priority Associated Diagnoses Date/Ti [...] Resistant Organisms Isolated 02/20/2023 12:58 PM EST [facility] Swab (Nares and Nimisha Rectal) 02/15/2023 5:26 PM EST 02/15/2023 6:27 PM EST us Khalif Fountain MD LAB MICROBIOLOGY - GEN ERAL ORDERABLES Final Result [facility] 800 [place] [address] documented in this encounter Visit Diagnoses Diagnosis [...] documented as of this encounter Care Teams Delivery And Installation Subcontractor Relationship Specialty Start Date End Date David Capone MD 1551 [facility] 1551 [place] [address] PCP - General 11/30/22 Bebeto Walton MD 740 S [facility] [address] [place] [address] Surgeon Otolaryngology 11/24/21 Gregoria Aviles MD 8 [place], [place] [phone] Referring Physician 11/02/22 Em Bell MD [address] [address] Surgeon Otolaryngology 01/13/23 documented as of this encounter
--- OUTSIDE RECORDS SUMMARY | 2024-10-19 11:32 | XMS_ITS | Encounter Summary ---
Author Organization Healthcare Address [address] [place] [address] Care Team Providers Care Director Of Extension Work Name Role Phone Ana Dickson MEDICAL EQUIPMENT TECHNICIAN Primary Care Provider Bebeto Walton MD Unavailable Gregoria Aviles MD Unavailable [phone] David Capone MD Primary Care Provider [phone] Em Bell MD Unavailable [phone] Encounter Details Date Type Department Care Team (Late st Contact Info) Description 11/12/2022 Lab Requisition [facility] [address] [place] [address] Bebeto Walton MD [address] [place] [address] Other diseases of tongue Social History Tobacco [...] drink first t pavan in the morning (EYE-LAWN AND GARDEN TECHNICIAN) to steady your nerves or to [...] 8:30 AM EDT Hospital Encounter [facility] [address] [place] [phone] Kyleigh Lyles MD [address] [address] 10/25/2024 8:30 AM EDT - 10/25/2024 9:40 AM EDT Surgery [facility] 800 [place] [phone] Kyleigh Lyles MD [address] [address] FLEXIBLE ESOPHAGOSCOPY WITH BALLOON DILATION 11/03/2024 11:30 AM EDT Office Visit [facility] 800 [facility], 2nd [place] [phone] Em Bell MD 800 [facility] [address] [place] [address] 11/13/2024 3:00 PM EDT Office Visit [place] [facility] [address], 3rd [place] [address] Kyleigh Lyles MD [address] [address] 12/18/2024 10:00 AM EDT Office Visit [facility] 800 [facility], 2nd [place] [phone] Bebeto Walton MD [address] [address] 01/30/2025 10:00 AM EST Appointment [facility] PET Scan [address] [place] [phone] 01/30/2025 11:00 AM EST Appointment [facility] PET Scan [address] [place] [phone] 01/30/2025 1:45 PM EST Office Visit [facility] [address] [phone] Bebeto Walton MD [address] [address] Scheduled Procedures Name Priority Associated Diagnoses Date/Ti me DILATION, ESOPHAGUS Dysphagia, unspecified type 10/25/2024 8:30 AM EDT documented as of this encounter Procedures Procedure Name Priority Date/Time Associated Diagnosis Comments SURGICAL PATHOLOGY CONSULT Routine 11/12/2022 10:59 AM EDT Other diseases of tongue documented in this encounter Results * Surgical Pathology Consult (11/12/2022 10:59 AM EDT) Case Report Sugical Pathology Consult Case: [id number] Authorizing Provider: Bebeto Walton MD Collected: 11/12/2022 1059 Ordering Location: [facility] Lab Received: 11/12/2022 1100 Pathologist: Yang Perez MD Specimen: Tongue, [id number] 3 3:15 PM EDT [facility] Final Diagnosis A. RIGHT LATERAL TONGUE LESION, BIOPSIES (OUTSIDE CASE [id number]; COLLECTED ON 10/26/2022): - INVASIVE MODERATELY DIFFERENTIATED SQUAMOUS CELL CARCINOMA 3 3:15 PM EDT HEALTHCARE LAB at 1515 EDT Clinical Information K14.8 - Other diseases of tongue [ICD-10-CM] 3 3:15 PM EDT [facility] Gross Description A. [id number] Received along with a corresponding pathology report from [facility] are 2 slide(s) and 1 block labeled outside case: [id number] collected on 10/26/2022. 3 3:15 PM EDT [facility]ALTH[facility]ARE LAB Intradepartmental Consultation with Agreement Dr Oksana Guevara 3 3:15 PM EDT [facility]ALTH[facility]ARE [facility] Note: A resident was involved in the service. I attest I examined the relevant preparations for the specimens and confirmed the diagnosis or interpretation. 3 3:15 PM EDT [facility] Tissue Tongue structure / Unknown 11/12/2022 10:59 AM EDT 11/12/2022 11:00 AM EDT us Bebeto Walton MD LAB PATHOLOGY ORDERABLES Final R esult [facility] 800 [place] [address] documented in this encounter Visit Diagnoses Diagnosis Other diseases of tongue Dysphagia, unspecified type documented in this encounter Care Teams Director Of Extension Work Relationship Specialty Start Date End Date Ana Dickson APRN PCP - General 07/19/20 11/29/22 David Capone MD [address] [place], [place] [phone] PCP - General 11/30/22 Bebeto Walton MD [address] [facility] [address] [place] [address] Surgeon Otolaryngology 11/24/21 Gregoria Aviles MD [address] [place] [address] Referring Physician 11/02/22 Em Bell MD [address] [place] [address] [address] Surgeon Otolaryngology 01/13/23 documented as of this encounter
--- OUTSIDE RECORDS SUMMARY | 2024-10-19 11:32 | XMS_ITS | Encounter Summary ---
Author Organization Healthcare Address [address] [place] [address] Care Team Providers Care Die Cast Patternmaker Name Role Phone Ana Dickson DRIVE WORKER Primary Care Provider Bebeto Walton MD Unavailable Gregoria Aviles MD Unavailable [phone] David Capone MD Primary Care Provider [phone] Em Bell MD Unavailable [phone] Encounter Details Date Type Department Care Team (Late st Contact Info) Description 07/05/2022 Lab Requisition [facility] [address] [place] [address] Lisa Michaud MD [address] [place] [address] Unspecified general medical examination Social [...] Description 10/25/2024 8:30 AM EDT Hospital Encounter [facility] 800 [place] [phone] Kyleigh Lyles MD [address] [place] [facility] [address] [place] [phone] 10/25/2024 8:30 AM EDT - 10/25/2024 9:40 AM EDT Surgery [facility] 800 [place] [phone] Kyleigh Lyles MD [address] [place] [facility] [address] [place] [phone] FLEXIBLE ESOPHAGOSCOPY WITH BALLOON DILATION 11/03/2024 11:30 AM EDT Office Visit [facility] Res[facility] 800 [facility], 2nd [place] [phone] Em Bell MD 800 [facility] 2nd [place] [address] 11/13/2024 3:00 PM EDT Office Visit [place] [facility] [address] [place], 3rd [place] [address] Kyleigh Lyles MD [address] [address] 12/18/2024 10:00 AM EDT Office Visit [facility] 800 [facility] 2nd [place] [address] Bebeto Walton MD [address] [place] [phone] 01/30/2025 10:00 AM EST Appointment [facility] PET Scan 800 [place] [address] 01/30/2025 11:00 AM EST Appointment [facility] PET Scan 800 [place] [address] 01/30/2025 1:45 PM EST Office Visit [facility] 800 [facility] 2nd [place] [address] Bebeto Walton MD [address] [place] [phone] Scheduled Procedures Name Priority Associated Diagnoses Date/Ti [...] Antibody Negative Negative 07/05/2022 3:25 PM EDT [facility] HIV 1 & 2 Antibody/Antigen Screen Non Reactive Non Reactive 07/05/2022 3:25 PM EDT [facility] Comment:Screening for HIV 1 & 2 antibodies, and P24 antigen is NONREACTIVE. No confirmatory testing is required. Blood Venous blood specimen / Unknown 07/05/2022 2:21 PM EDT 07/05/2022 2:21 PM EDT us Lisa Michaud MD LAB BLOOD ORDERABLES Final Resul t [facility] 800 [place] [address] documented in this encounter Visit Diagnoses Diagnosis Unspecified general medical examination Dysphagia, unspecified type documented in this encounter Care Teams Die Cast Patternmaker Relationship Specialty Start Date End Date Ana Dickson APRN PCP - General 07/19/20 11/29/22 [place] [address] [place] [address] PCP - General 11/30/22 Bebeto Walton MD 740 [facility] [address] [place] [phone] Surgeon Otolaryngology 11/24/21 Gregoria Aviles MD [address] [place] [address] Referring Physician 11/02/22 Em Bell MD 800 [facility] Cancer [address] [address] Surgeon Otolaryngology 01/13/23 documented as of this encounter
--- OUTSIDE RECORDS SUMMARY | 2024-10-19 11:34 | XMS_ITS | Encounter Summary ---
Author Organization Healthcare Address [address] [place] [address] Care Team Providers Care Surgical Nurse Name Role Phone Bebeto Walton MD Unavailable Gregoria Aviles MD Unavailable [phone] David Capone MD Primary Care Provider [phone] Em Bell MD Unavailable [phone] Reason for Visit * Reason Comments Resource Navigation Encounter Details Date Type Department Care Team (Late st Contact Info) Description 10/02/2024 Social Work Psych Oncology 800 [place] [address] Madalyn Lama Social History Tobacco Use Types Packs/Day Years [...] place to sleep or slept in a nursing home (including now)? No 02/15/2023 CAGE ASSESSMENT [...] drink first t pavan in the morning (EYE-TRANSPORTATION AID) to steady your nerves or to get [...] encounter Miscellaneous Notes * Progress Notes - Madalyn Lama - 10/02/2024 11:59 PM EDT Encounter Type: Phone Call Disease Status: Established Patient Clinic Location: [facility] Disease Type: Head & Neck Services Provided: Transportation Assistance Community Referrals: Medicaid Transportation Program Intervention Level: 3 Units (1 unit = 15 minutes): 2 Narrative: Phone call received from pt's sister [place] requesting transportation for pt's upcoming appts on 10/05 and 10/06. Rides arranged through [employer] for 730 at at 12:00 #[phone] and 10/06 at 9:00 to bring pt for appts. CONTRACT NEGOTIATION SPECIALIST explained to pt's sister that as pt's appt is at [facility] on 10/06 that pt will be dropped off in front of [facility] and can take shuttle to appt. Pt's sister voiced understanding and appreciation for the assistance. No further needs identified. CONTRACT NEGOTIATION SPECIALIST to remain available for any ongoing needs or support. Madalyn Lama, PASSENGER TIRE INSPECTOR, CONTRACT NEGOTIATION SPECIALIST [facility] Psych-Oncology Services documented in this encounter Plan of Treatment Upcoming Encounters Date Type Department Care Team (Latest Contact Info) Description 10/25/2024 8:30 AM EDT Hospital Encounter [facility] 800 [place] [address] Kyleigh Lyles MD [address] [address] 10/25/2024 8:30 AM EDT - 10/25/2024 9:40 AM EDT Surgery [facility] 800 [place] [address] Kyleigh Lyles MD [address] [address] FLEXIBLE ESOPHAGOSCOPY WITH BALLOON DILATION 11/03/2024 11:30 AM EDT Office Visit [facility] Respiratory 800 [facility] 2nd [place] [address] Em Bell MD 800 [facility] [place] [facility] [address] [place] [phone] 11/13/2024 3:00 PM EDT Office Visit [place] [facility] [address], 3rd [place] [address] Kyleigh Lyles MD [address] [address] 12/18/2024 10:00 AM EDT Office Visit [facility] [address] [address] Bebeto Walton MD [address] [address] 01/30/2025 10:00 AM EST Appointment [facility] PET Scan [address] [place] [address] 01/30/2025 11:00 AM EST Appointment [facility] PET Scan 800 [place] [address] 01/30/2025 1:45 PM EST Office Visit [facility] [address] [address] Bebeto Walton MD [address] [phone] Scheduled Procedures Name Priority Associated Diagnoses Date/Ti [...] documented as of this encounter Care Teams Surgical Nurse Relationship Specialty Start Date End Date David Capone MD 1551 [facility] 1551 [place] [address] PCP - General 11/30/22 Bebeto Walton MD [address] [place] [phone] Surgeon Otolaryngology 11/24/21 Gregoria Aviles MD 8 [place], [place] [phone] Referring Physician 11/02/22 Em Bell MD [address] [place] [address] [phone] Surgeon Otolaryngology 01/13/23 documented as of this encounter
--- OUTSIDE RECORDS SUMMARY | 2024-10-19 11:35 | XMS_ITS | Encounter Summary ---
Author Organization Healthcare Address [address] [place] [address] Care Team Providers Care Road Supervisor Of Engines Name Role Phone Bebeto Walton MD Unavailable Gregoria Aviles MD Unavailable [phone] David Capone MD Primary Care Provider [phone] Em Bell MD Unavailable [phone] Encounter Details Date Type Department Care Team (Latest Contact Info) Description 10/06/2024 Travel Social History Tobacco Use Types Packs/Day [...] drink first t pavan in the morning (EYE-METAL FRAMER) to steady your nerves or to get rid of a hangover? 1 10/02/2022 CAGE Questionnaire Score 2 023 Utilities Answer Date Recorded In the past 12 months has th e [employer], gas, oil, or water company threatened to [...] 8:30 AM EDT Hospital Encounter [facility] [address] [place] [phone] Kyleigh Lyles MD [address] [address] 10/25/2024 8:30 AM EDT - 10/25/2024 9:40 AM EDT Surgery [facility] 800 [place] [phone] Kyleigh Lyles MD [address] [phone] FLEXIBLE ESOPHAGOSCOPY WITH BALLOON DILATION 11/03/2024 11:30 AM EDT Office Visit [facility] Res[facility] 800 [facility], 2nd [place] [address] Em Bell MD 800 [facility] [address] [place] [phone] 11/13/2024 3:00 PM EDT Office Visit [place] [facility] [address], 3rd [place] [address] Kyleigh Lyles MD [address] [address] 12/18/2024 10:00 AM EDT Office Visit [facility] Res[facility] 800 [facility], 2nd [place] [phone] Bebeto Walton MD [address] [address] 01/30/2025 10:00 AM EST Appointment [facility] PET Scan 800 [place] [address] 01/30/2025 11:00 AM EST Appointment [facility] PET Scan 800 [place] [address] 01/30/2025 1:45 PM EST Office Visit [facility] Res[facility] 800 [facility], 2nd [place] [address] Bebeto Walton MD [address] [address] Scheduled Procedures Name Priority Associated [...] documented as of this encounter Care Teams Road Supervisor Of Engines Relationship Specialty Start Date End Date David Capone MD [facility] [place] [address] PCP - General 11/30/22 Bebeto Walton MD [address] [phone] Surgeon Otolaryngology 11/24/21 Gregoria Aviles MD 8 [place] [address] Referring Physician 11/02/22 Em Bell MD 800 [facility] Cancer [address] [phone] Surgeon Otolaryngology 01/13/23 documented as of this encounter"
--- OUTSIDE RECORDS SUMMARY | 2024-10-19 11:35 | XMS_ITS | Encounter Summary ---
Author Organization Healthcare Address [address] [place] [address] Care Team Providers Care Senior Media Director Name Role Phone Bebeto Walton MD Unavailable Gregoria Aviles MD Unavailable [phone] David Capone MD Primary Care Provider [phone] Em Bell MD Unavailable [phone] Encounter Details Date Type Department Care Team (Latest Contact Info) Description 10/05/2024 Travel Social History Tobacco Use Types Packs/Day [...] place to sleep or slept in a residential (including now)? No 02/15/2023 CAGE ASSESSMENT Answer [...] drink first t pavan in the morning (EYE-CLINICAL SERVICES SPECIALIST) to steady your nerves or to get rid of a hangover? 1 10/02/2022 CAGE Questionnaire Score 2 023 Utilities Answer Date Recorded In the past 12 months has th e [employer], gas, oil, or water company threatened to [...] 8:30 AM EDT Hospital Encounter [facility] [address] [place] [phone] Kyleigh Lyles MD [address] [address] 10/25/2024 8:30 AM EDT - 10/25/2024 9:40 AM EDT Surgery [facility] [address] [place] [phone] Kyleigh Lyles MD [address] [phone] FLEXIBLE ESOPHAGOSCOPY WITH BALLOON DILATION 11/03/2024 11:30 AM EDT Office Visit [facility] 800 [facility], 2nd [place] [phone] Em Bell MD 800 [facility] [address] [place] [phone] 11/13/2024 3:00 PM EDT Office Visit [place] [facility] [address], 3rd [place] [address] Kyleigh Lyles MD [address] [address] 12/18/2024 10:00 AM EDT Office Visit [facility] [address] [facility], 2nd [place] [phone] Bebeto Walton MD [address] [address] 01/30/2025 10:00 AM EST Appointment [facility] PET Scan 800 [place] [address] 01/30/2025 11:00 AM EST Appointment [facility] PET Scan 800 [place] [phone] 01/30/2025 1:45 PM EST Office Visit [facility] [address] [facility], 2nd [place] [phone] Bebeto Walton MD [address] [address] Scheduled Procedures Name Priority Associated [...] documented as of this encounter Care Teams Senior Media Director Relationship Specialty Start Date End Date David Capone MD [id number] [place] [address] PCP - General 11/30/22 Bebeto Walton MD [address] [phone] Surgeon Otolaryngology 11/24/21 Gregoria Aviles MD 8 [place] [address] Referring Physician 11/02/22 Em Bell MD 800 [facility] [address] [phone] Surgeon Otolaryngology 01/13/23 documented as of this encounter
--- NOTE | 2024-10-19 11:39 | EXP.PAIN.SOA ---
[facility] Disclaimer: The information contained in this section may have been updated after the patient was seen, as this information can be updated by other users. Medical History Anxiety Alcoholism Hypothyroidism Larynx cancer Surgical History H/O abdominal surgery H/O thyroidectomy H/O laryngectomy Family History Sister Breast cancer Social History Smoking Status: Unknown if ever smoked alcohol intake: former current occupational status: disabled Travel in the last 8 weeks?: None Have you lived/traveled outside US in past 30 days?: No Contact w/someone who lives/traveled outside US past 30 days?: No Exposure to someone with infectious disease in past 14 days?: No Do you have a fever (greater than 100.4 F or 38 C)?: No Have you tested positive for COVID-19?: No Exposed to someone with COVID-19 in past 14 days?: No Do you have a sore throat?: No Do you have a cough?: No Do you have any weakness?: No Do you have any diarrhea?: No Are you experiencing any unusual bleeding?: No Do you have any muscle aches/pain?: No Do you have any abdominal pain?: No Are you experiencing loss of taste or smell?: No PM Subjective & Objective Subjective Subjective:: Patient has a pleasant 59-year-old male who presents today for medication refill and follow-up. He is rating his pain a 9 out of 10 today he does state that he is just not feeling well and having more pain under he is right arm that radiates to the right mid back. Patient does also seen to be under the weather and feels nauseous and very unstable on his feet. Patient is currently managed with Huntington 10 mg 3 times a day from our office along with methocarbamol 500 mg 3 times a day. Patient denies any side effects to this medication. He does state that the muscle relaxer did help. His Ezra has been reviewed and is appropriate. Review of Systems: General: No recent weight changes, no fever, no sleep disturbances Respiratory: No cough, no shortness of air, no recurring pulmonary infections Cardiovascular/peripheral vascular: No chest pain, no palpitations, no edema, no shortness of breath Gastrointestinal: No new onset incontinence, normal bowel movements reported Genitourinary: No new onset incontinence Musculoskeletal: Chronic back pain, right underarm pain Psychiatric: [Normal mood/affect] Neurological: [Denies weakness in extremities], [denies balance issues] Pain at rest (0-10 scale): 9 Objective Objective:: Physical Exam: General: Alert and oriented x3, no acute distress, pleasant and cooperative Lungs: Respirations even and unlabored, symmetrical chest expansion Eyes: PERRL Musculoskeletal: Flexion and extension of cervical [spine] somewhat guarded secondary to pain, [antalgic gait noted] Neurological: Speech clear, no gross sensory deficit Has patient had previous pain injection?: No Conservative treatment options previously tried: Prescription medications Length of treatment: Longer than 12 weeks Meds Home Medications and Allergies Home Medications ?Medication ?Instructions ?Recorded ?Confirmed ?Type levothyroxine 137 mcg tablet 137 mcg PO AM 01/27/24 09/21/24 History doxycycline hyclate 100 mg tablet 100 mg PO BID 7 days #14 tabs 07/14/24 09/21/24 Rx furosemide 20 mg tablet (Lasix) 20 mg PO DAILY 1 week #7 tabs 07/14/24 09/21/24 Rx clonazepam 0.5 mg tablet 1 mg (2 x 0.5 mg) PO TID anxiety 08/30/24 09/21/24 Rx 30 days #180 tabs hydrocodone 10 mg-acetaminophen 1 tab PO TID #90 tabs 09/21/24 Rx 325 mg tablet methocarbamol 500 mg tablet 500 mg PO TID #42 tabs 09/21/24 Rx New Prescriptions to Start Prescriptions: Allergies Allergy/AdvReac Type Severity Reaction Status Date / Time gabapentin Allergy Unknown Verified 08/30/24 14:20 allergy reaction tramadol Allergy Unknown Verified 08/30/24 14:20 allergy reaction Assessment and Plan *Assessment and plan (1) Neck pain: Status: Acute Category: Medical Code(s): M54.2 - Cervicalgia (2) Cervical radiculopathy: Status: Acute Category: Medical Code(s): M54.12 - Radiculopathy, cervical region (3) Cancer: Status: Acute Category: Medical Code(s): C80.1 - Malignant (primary) neoplasm, unspecified Plan Patient was very unstable on his feet during our visit. Patient also Feeling like he was going to vomit during this appointment. I did look over his skin along the right side of his chest and radiating to his mid back. There was no obvious rash noted but did have redness from what appears to be where he was rubbing his right breast area with what looks like a couple of scratches possible from his nails. Patient was unable to let me know how long this pain sensation has been going on as he kept having to cover his mouth due to feeling like she was going to vomit. I did discuss with the patient that I do believe it in his best interest to be checked out by the ER due to the worsening symptoms and unsteady gait. I did let him know that I would go ahead and refill his Huntington and methocarbamol and provide a 1 month supply of these medications. Patient will return to clinic in 1 month. We will continue to follow-up from his visit to the ER. Risks and benefits of the medication have been explained in detail to the patient. The patient does understand the risk of dependence on the medication when given over a prolonged period. Patient has been advised of risks of oversedation with the prescribed medication. Narcan has been offered to the paitent in the event of oversedation. Patient has been advised that a family member should also be educated regarding administration of Narcan. The patient has been advised to consult with his/her primary care provider and pharmacist regarding drug-drug interaction of medications currently prescribed. Patient has been prescribed a controlled substance after being counseled on the medication, medication safety, and possible side effects. Opioid contract was reviewed and signed by the patient, and that they have agreed to all of the terms set forth by our compliance program. A UDS is needed to verify patient's compliance with our office pain contract. This is ordered based off specific treatments related to chronic pain with the potential to abuse certain medications. Patient has been instructed to contact the clinic with any concerns before the next appointment. Dr. Mccrary has reviewed this note and agrees with this plan of care. This note was dictated using voice recognition software and make contain errors or omissions.
[2024-10-19 12:12] VITALS: BP 123/80; PULSE 113; RESP 22; O2SAT 94; BMI 23.3
== END 2024-10-19 23:59 | disposition home or self-care (01) ==
PROVIDERS: Visit Provider Nurse Practitioner Family
DX: M54.12 Radiculopathy, cervical region (principal); C80.1 Malignant (primary) neoplasm, unspecified; Z79.891 Long term (current) use of opiate analgesic; Z79.899 Other long term (current) drug therapy
CPT/HCPCS: 99212; G0463

== ENCOUNTER 2024-10-19 11:58 | Emergency (ER) | payer MEDICAID, SELFPAY ==
--- OUTSIDE RECORDS SUMMARY | 2024-09-20 08:43 | XMS_ITS | Encounter Summary ---
Author Organization Healthcare Address [address] [place] [address] Care Team Providers Care Feeder/Folder Name Role Phone Bebeto Walton MD Unavailable Gregoria Aviles MD Unavailable [phone] David Capone MD Primary Care Provider [phone] Em Bell MD Unavailable [phone] Reason for Visit * Auth/Cert (Routine) Specialty Diagnoses / Procedures Referred By Contac t Referred To Contact Diagnoses Dysphagia, unspecified type Dysphagia, unspecified type [R13.10] Procedures [place] ESOPHAGOSCOPY FLEXIBLE TRANSORAL DIAGNOSTIC [place] ESOPHAGOSCOPY FLEXIBLE TRANSORAL W SUBMUCOUS INJ [place] ESOPHAGOSCOPY FLEX BALLOON DILAT <30 MM DIAM FLEXIBLE ESOPHAGOSCOPY WITH BALLOON DILATION Kyleigh Lyles MD [address] [facility] [address] [place] [address] Phone: tel: fax: [facility] [address] [place] [address] Phone: tel: Referral ID Status Reason Start Date Expiration Date Visits Re quested Visits Authorized [id number] 1 1 Encounter Details Date Type Department Care Team (Latest Contact Info) Description 09/20/2024 8:43 AM EDT - 09/20/2024 11:47 AM EDT Hospital Encounter [facility] [address] [place] [address] Kyleigh Lyles MD [address] [place] [address] Discharge Disposition: Home or Self Care Social [...] place to sleep or slept in a skilled nursing (including now)? No 02/15/2023 CAGE ASSESSMENT Answer [...] drink first t pavan in the morning (EYE-ELECTRONICS REPAIR TECHNICIAN) to steady your nerves or to get rid of a hangover? 1 10/02/2022 CAGE Questionnaire Score 2 023 Utilities Answer Date Recorded In the past 12 months has th [employer], gas, oil, or water [employer] threatened to shut off services in your [...] a day. 100 mL 01/01/2024 HYDROcodone-acetami nophen ([place]) 10-325 MG tablet TAKE ONE TABLET BY [...] 59 y.o. 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 Lombardi ANESTHESIA: General ASA: III OR TEAM: Anesthesiologist: Dirk Garcia MD SKULL CHOPPER: Alexsander Eric CRNA Fast Food Assistant Restaurant Manager: Mary Mishra Relief Fast Food Assistant Restaurant Manager: Ruchi Ramírez RN Scrub Person: Rima Potter [...] 11:41 AM EDT Associated attestation - Kyleigh Llyes MD - 09/20/2024 11:41 AM EDT I [...] He underwent adjuvant radiation therapy completed in [place] on 04/01/2017. He was found to have [...] 06/20/2024), Disp: 100 mL, Rfl: 0 HYDROcodone-acetaminophen ([place]) 10-325 MG tablet, TAKE ONE TABLET BY [...] pharyngoscopy INDICATION: Dysphagia PROVIDER: Kyleigh Lyles MD Thermospray Operator: Milli ANESTHESIA: Local (lidocaine with afrin) PROCEDURE [...] disintegrating tablet Take morning of surgery HYDROcodone-acetaminophen ([place]) 10-325 MG tablet Take morning of surgery [...] card, photo ID, along with power of sports attorney, guardianship or advanced directives if applicable [...] History: Procedure Laterality Date EXPLORATORY LAPAROTOMY 06/27/2022 ([facility]) EXPLORATORY LAPAROTOMY 10/02/2022 ([facility]) OTHER SURGICAL HISTORY N/A Direct Laryngoscopy With Biopsy from [employer] OTHER SURGICAL HISTORY N/A Biopsy of larynx from [facility] TOTAL LARYNGECTOMY N/A Total Laryngectomy [...] Hospital Encounter [facility] [address] [place] [phone] Kyleigh Lyles MD [address] [address] 10/25/2024 8:30 AM EDT - 10/25/2024 9:40 AM EDT Surgery [facility] [address] [place] [phone] Kyleigh Lyles MD [address] [address] FLEXIBLE ESOPHAGOSCOPY WITH BALLOON DILATION 11/03/2024 11:30 AM EDT Office Visit [facility] [address] [facility], [address]nd [place] [phone] Em Bell MD [address] [facility] [address] [place] [address] 11/13/2024 3:00 PM EDT [facility] Visit [facility] [address], [address] [place] [address] Kyleigh Lyles MD [address] [address] 12/18/2024 10:00 AM EDT Office Visit [facility] [address] [phone] Bebeto Walton MD [address] [address] 01/30/2025 10:00 AM EST Appointment [facility] PET Scan [address] [place] [phone] 01/30/2025 11:00 AM EST Appointment [facility] PET Scan [address] [place] [phone] 01/30/2025 1:45 PM EST Office Visit [facility] [address] [place] [phone] Bebeto Walton MD [address] [phone] Scheduled Procedures Name Priority Associated Diagnoses Date/Ti [...] (New Bag - Prov ider: Alexsander Eric, [employer]) lactated Ringer's infusion 20 mL/hr, Intravenous, Once, [...] documented as of this encounter Care Teams Feeder/Folder Relationship Specialty Start Date End Date David Capone MD [address] [place] [address] [place] [address] PCP - General 11/30/22 Bebeto Walton MD [address] [facility] [address] [place] [address] Surgeon Otolaryngology 11/24/21 Gregoria Aviles MD [address] [place] [address] Referring Physician 11/02/22 Em Bell MD [address] [place] [address] [address] Surgeon Otolaryngology 01/13/23 documented as of this encounter
--- OUTSIDE RECORDS SUMMARY | 2024-09-20 09:59 | XMS_ITS | Encounter Summary ---
Author Organization Healthcare Address [address] [place] [address] Care Team Providers Care Delinquency Prevention Officer Name Role Phone Bebeto Walton MD Unavailable Gregoria Aviles MD Unavailable [phone] David Capone MD Primary Care Provider [phone] Em Bell MD Unavailable [phone] Reason for Visit * Auth/Cert (Routine) Specialty Diagnoses / Procedures Referred By Contac t Referred To Contact Diagnoses Dysphagia, unspecified type Dysphagia, unspecified type [R13.10] Procedures WI ESOPHAGOSCOPY FLEXIBLE TRANSORAL DIAGNOSTIC WI ESOPHAGOSCOPY FLEXIBLE TRANSORAL W SUBMUCOUS INJ WI ESOPHAGOSCOPY FLEX BALLOON DILAT <30 MM DIAM FLEXIBLE ESOPHAGOSCOPY WITH BALLOON DILATION Kyleigh Lyles MD [address] [facility] [address] [place] [address] Phone: tel: fax: [facility] [address] [place] [address] Phone: tel: Referral ID Status Reason Start Date Expiration Date Visits Re quested Visits Authorized [id number] 1 1 Encounter Details Date Type Department Care Team (Late st Contact Info) Description 09/20/2024 9:59 AM EDT Anesthesia Event [facility] [address] [place] [address] Dirk Garcia MD [address] [place] [address] Anesthesia Record Procedure Summary Procedure Name Responsible Anesthesiologist Anesthesia Start Time Anesthesia Stop Time FLEXIBLE ESOPHAGOSCOPY WITH BALLOON DILATION (Bilateral) Dirk Garcia MD 09/20/24 0959 09/20/24 1040 Events Date Time Event Comment 09/20/2024 0959 An Start The patient was reevaluated immediately before sedation and remains eligible for anesthesia plan. 0959 In Room 1002 An Start Data 1006 An Induction The patient was reevaluated immediately before moderate or deep sedation use and before anesthesia induction. 1008 An Intubation 1011 Proc Start 1014 Anesthesia Ready 1025 Proc Fin 1029 An Extubation 1032 an stop data 1033 Out of Room 1040 Handoff to Receiving I compl eted my handoff to the receiving clinician during which we: 1. Identified the patient 2. Identified the responsible provider 3. Reviewed the pertinent medical history 4. Discussed the surgical course 5. Reviewed intra-op anesthesia management and issues during anesthesia 6. Set expectations for post-procedure period 7. Allowed opportunity for questions and acknowledgement of understanding. 1040 An Stop Meds Name Total fentaNYL (Sublimaze) injection 50 mcg/mL 100 mcg propofol (Diprivan) injection 10 mg/mL 2 00 mg dexamethasone (Decadron) injection 4 mg/ mL 4 mg ondansetron (Zofran) injection 2 mg/mL 4 mg ampicillin-sulbactam (Unasyn) vial 3 g 3 g lidocaine PF (Xylocaine-MPF) 2% 40 mg HYDROmorphone PF (Dilaudid) injection 1 mg/mL 0.5 mg lactated Ringer's infusion 0 mL * Agents No agents on file. * Blood No blood administrations on file. Lines, Drains, and Airways Type Details Placement Removal Wound 09/20/24; 1034; N; Y es; Surgical; Closed Surgi; Mouth 09/20/24 1034 by Mary Mishra Peripheral IV Placement Date: 09/05 08/30; Placement Time: 912; Catheter Size: 22 G; Orientation: Distal, Left, Posterior; Location: Forearm; Site Prep: Chlorhexidine ; Local Anesth: None; Technique: Anatomical landmarks; Insertion Attempts: 1; Removal Date: 09/20/24; Removal Time: 1138; Removal Reason: Discharge 09/20/24 0913 by Earnestine Wiggins RN 09/20/24 1138 by Miriam Glaser RN ETT Placement Date: 09/05 08/30; Placement Time: 1008 (created via procedure documentation); Mask Ventilation: 0; Technique: Blind; Type: ETT - single; Single Lumen Tube Size: 7.5 mm; Cuffed: Yes; Location: Tracheostomy; Insertion Attempts: 1; Placement Verification: Auscultation, Capnometry; Airway Comments: Moncho chest rise, Moncho breath sounds, Positive CO2, Atraumatic Dentition; Placed by: SURFACER; Removal Date: 09/20/24; Removal Time: 1029 09/20/24 1008 by Alexsander Eric CRNA 09/20/24 1029 by Alexsander Eric CRNA documented in this encounter Social History Tobacco Use Types Packs/Day Years [...] place to sleep or slept in a retirement (including now)? 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 1 10/02/2022 CAGE Questionnaire Score 2 023 Utilities Answer Date Recorded In the past 12 months has th e [employer], gas, oil, or water company threatened to [...] Month) No 025 9:03 AM EDT Earnestine Wiggins, RN 2. Non-Specific Active Suici corbin Thoughts (Past 1 Month) No 09/20/2024 9:03 AM EDT Vinicius Wiggins RN 6. Suicidal Behavior (Lifetime) No 9:03 AM EDT Earnestine Wiggins RN documented as of this encounter Miscellaneous Notes * Anesthesia Postprocedure Evaluation - Alexsander Eric CRNA - 09/20/2024 11:11 AM EDT Patient: Anupam Metz Jr. Anesthesia Type: general Vitals Value Taken Time BP 143/95 09/20/24 11:00 Temp 36.4 ??C (97.5 ??F) 09/20/24 10:40 Pulse 90 09/20/24 11:09 Resp 13 09/20/24 11:09 SpO2 97 % 09/20/24 11:09 Vitals shown include unfiled device data. Anesthesia Post Evaluation Patient location during evaluation: PACU Patient participation: complete - patient participated Level of consciousness: awake Pain management: adequate (pain score 0-3) Airway patency: natural airway Cardiovascular status: hemodynamically stable and acceptable Respiratory status: nonlabored ventilation, spontaneous ventilation, acceptable and face mask Hydration status: acceptable Comments: Oxygen blowby 6LPM. Report to RN No notable events documented. * Anesthesia Procedure Notes - Alexsander Eric CRNA - 09/20/2024 10:17 AM EDTAssociated Order(s): Airway Airway Date/Time: 09/20/2024 10:08 AM Reason: elective Airway not difficult General Information and Staff Patient location during procedure: OR SURFACER: Alexsander Eric CRNA Performed: SURFACER Patient Condition Indications for airway management: anesthesia and airway protection Patient position: sniffing Final Airway Details Final airway type: endotracheal airway Successful airway: ETT Cuffed: yes Successful intubation technique: blind Endotracheal tube insertion site: tracheostomy ETT size (mm): 7.5 Placement verified by: chest auscultation and capnometry Measured from: stoma Additional Comments Moncho chest rise, Moncho breath sounds, Positive CO2, Atraumatic Dentition * Anesthesia Preprocedure Evaluation - Dirk Garcia MD - 09/20/2024 9:22 AM EDT Anesthesiologist: Dirk Garcia MD SURFACER: Alexsander Eric CRNA Steam Press Tender: (Unknown) Patient: Anupam Metz Jr. HPI Anupam Metz Jr. is a 59 y.o. male with body mass index is unknown because there is no height or weight on file. who presents with No Principal Problem: There is no principal problem currently onthe Problem List. Please update the Problem List and refresh., now for FLEXIBLE ESOPHAGOSCOPY WITH BALLOON DILATION (Bilateral) Procedure Information Date/Time: 09/20/24 1010 Procedure: FLEXIBLE ESOPHAGOSCOPY WITH BALLOON DILATION (Bilateral) Location: [facility] Surgeons: Kyleigh Lyles MD Relevant Problems Anesthesia (+) Motion sickness Cardio (+) Atherosclerosis (+) Chronic cerebral ischemia Endo (+) Hyperthyroidism GI (+) GERD (gastroesophageal reflux disease) (+) Hiatal hernia (+) Small bowel obstruction (CMS/HCC) /Renal (+) Renal cyst Pulmonary (+) Centrilobular emphysema (CMS/HCC) Respiratory (+) Calcified granuloma of lung (+) Laryngeal cancer (CMS/HCC) (+) Oropharyngeal dysphagia (+) Squamous cell carcinoma of base of tongue Digestive (+) No natural teeth (+) Primary tongue squamous cell carcinoma Musculoskeletal (+) Degenerative arthritis of spine Other (+) History of smoking (+) Second hand smoke exposure ALLERGIES Allergies[1] NPO STATUS Past Medical History[2] AIRWAY HISTORY Airway Detailed Review Displaying the 20 most recent records Date Difficult Airway Blade Size ETT Size C-L Class Final Type Intubation Method 12/31/23 No 7.5 endotracheal airway blind 12/03/23 No 02/12/23 No other 10/02/22 No 7.0 endotracheal airway direct laryngoscopy 06/27/22 No other MEDICATIONS Outpatient Current Outpatient Medications Medication Instructions clonazePAM (KLONOPIN) 1 mg, Oral, 3 times daily diazePAM (Valium) 5 MG tablet TAKE ONE (1) TABLET TWICE A DAY BY ORAL ROUTE FOR 30 DAYS. docusate sodium (COLACE) 100 mg, Oral, 2 times daily HYDROcodone-acetaminophen ([place]) 10-325 MG tablet TAKE ONE TABLET BY MOUTH THREE TIMES DAILY MAY CAUSE DROWSINESS ibuprofen 600 mg, 3 times daily Kloxxado 8 mg, Nasal, As needed levothyroxine (SYNTHROID, LEVOXYL) 137 mcg, Daily methocarbamol (ROBAXIN) 500 mg, Oral, 4 times daily oxyCODONE-acetaminophen (Percocet) 10-325 MG tablet 3 (three) times a day if needed. predniSONE (Deltasone) 20 MG tablet TAKE ONE (1) TABLET EVERY DAY BY ORAL ROUTE AFTER A MEALSFOR 30DAYS. senna (SENOKOT) 17.6 mg, Oral, 2 times daily sulfamethoxazole-trimethoprim (Bactrim DS) 800-160 MG tablet TAKE 1 TABLET BY MOUTH EVERY 12 HOURS FOR 10 DAYS Scheduled Current Scheduled Medications[3] PRNs Current PRN Medications[4] SURGICAL HX: Surgical History[5] SOCIAL HX: Social History[6] OBJECTIVE DATA LABS Lab Results Component Value Date WBC 7.59 01/28/2024 HGB 12.4 (L) 01/28/2024 HCT 35.9 (L) 01/28/2024 MCV 86 01/28/2024 PLT 279 01/28/2024 Lab Results Component Value Date CALCIUM 8.2 (L) 01/28/2024 BUN 3 (L) 01/28/2024 CREATININE 0.56 (L) 01/28/2024 BCR 5 01/28/2024 NA 129 (L) 01/28/2024 K 3.6 01/28/2024 CL 92 (L) 01/28/2024 CO2 27 01/28/2024 CA 7.7 (L) 01/01/2017 Type and Screen No results found for: ABO No results found for: HGBA1C No results found for: PGLU , GLUCOSE ABG Lab Results Component Value Date PHART 7.27 (L) 06/27/2022 SBC5YLC 46 06/27/2022 PO2ART 194 (H) 06/27/2022 SO2ART 100 (H) 06/27/2022 BEART -5.6 (L) 06/27/2022 YOC8HMA 24 02/12/2023 HCTART 26.0 (L) 06/27/2022 SODIUMART 137 06/27/2022 POTASSIUMART 4.6 06/27/2022 POCTCL 107 06/27/2022 POCGLU 147 (H) 06/27/2022 IONCALART 3.8 (L) 06/27/2022 LACTATE 0.9 02/12/2023 Lab Results Component Value Date PH 7.36 02/12/2023 PCO2 42 02/12/2023 PO2 218 (H) 02/12/2023 O8LHFOOP 100 (H) 02/12/2023 BASEEXC -1.7 02/12/2023 HCTSYR 23.5 (L) 02/12/2023 KSYR 4.4 02/12/2023 CLSYR 105 02/12/2023 GLUSYR 129 (H) 02/12/2023 CAION 4.3 (L) 02/15/2023 LACTATE 0.9 02/12/2023 ECHO No echocardiogram results found for the past 12 months PFTs No results found for: WCQ2KDI , ZSK2RVUO , PAO7EGK , FVCPRED BP Readings from Last 5 Encounters: 06/20/24 115/74 06/08/24 107/66 03/30/24 121/81 02/22/24 126/67 01/28/24 122/83 Physical Exam Airway Mallampati: unable to assess Mouth opening: normal Cardiovascular Rhythm: regular Rate: normal Dental - normal exam Pulmonary Breath sounds clear to auscultation Neurological Oriented: normal to time, normal to place and normal to person and oriented to person, place and time Skin - normal exam Musculoskeletal - normal exam Extremities -normal exam Anesthesia Plan ASA 3 Plan was reviewed with: SURFACER Anesthesia technique(s) discussed with the patient/family: general Anesthesia plan agreed upon was: general Anesthetic plan and risks discussed with patient. Anesthesia Evaluation [1] Allergies Allergen Reactions Gabapentin Other - please document in the comment field Tramadol Other - please document in the comment field Stomach issues [2] Past Medical History: Diagnosis Date Anxiety Dental disease edentulous Disease of thyroid gland Dysphagia GERD (gastroesophageal reflux disease) Hyperthyroidism Leukocytosis 10/02/2022 POA Downtrending. Will continue to monitor Motion sickness No natural teeth Other diseases of larynx Mass of larynx Pneumonia 07/2024-resolved Scalp laceration 06/27/2022 No open laceration on evaluation Dried blood without open wounds [3] [4] [5] Past Surgical History: Procedure Laterality Date EXPLORATORY LAPAROTOMY 06/27/2022 ([facility]) EXPLORATORY LAPAROTOMY 10/02/2022 ([facility]) OTHER SURGICAL HISTORY N/A Direct Laryngoscopy With Biopsy from [facility] OTHER SURGICAL HISTORY N/A Biopsy of larynx from [facility] TOTAL LARYNGECTOMY N/A Total Laryngectomy from [facility] TOTAL LARYNGECTOMY TRACHEAL SURGERY [6] Social History Tobacco Use Smoking status: Former Current packs/day: 0.00 Average packs/day: 1 pack/day for 35.0 years (35.0 ttl pk-yrs) Types: Cigarettes Start date: 1980 Quit date: 2015 Years since quittin.5 Smokeless tobacco: Never Vaping Use Vaping status: Never Used Substance Use Topics Alcohol use: Not Currently Comment: quit drinking beer about 2 months ago Drug use: Not Currently Types: Marijuana documented in this encounter Plan of Treatment Upcoming Encounters Date Type Department Care Team (Latest Contact Info) Description 10/25/2024 8:30 AM EDT Hospital Encounter [facility] [address] [place] [phone] Kyleigh Lyles MD [address] [address] 10/25/2024 8:30 AM EDT - 10/25/2024 9:40 AM EDT Surgery [facility] [address] [place] [phone] Kyleigh Lyles MD [address] [phone] FLEXIBLE ESOPHAGOSCOPY WITH BALLOON DILATION 11/03/2024 11:30 AM EDT Office Visit [facility] [address] [facility], [address] [place] [phone] Em Bell MD [address] [facility] [address] [place] [address] 11/13/2024 3:00 PM EDT Office Visit [facility] [address], [address] [place] [phone] Kyleigh Lyles MD [address] [phone] 12/18/2024 10:00 AM EDT Office Visit [facility] [address] [facility] [address] [place] [address] Bebeto Walton MD [address] [phone] 01/30/2025 10:00 AM EST Appointment [facility] PET Scan [address] [place] [phone] 01/30/2025 11:00 AM EST Appointment [facility] PET Scan [address] [place] [address] 01/30/2025 1:45 PM EST Office Visit [facility] [address] [facility] [address] [place] [phone] Bebeto Walton MD [address] [phone] Scheduled Procedures Name Priority Associated Diagnoses Date/Ti [...] Procedure Name Priority Date/Time Associated Diagnosis Comments PB ANESTHESIA PLACEHOLDER Routine 09/20/2024 10:08 AM EDT WI AN ELECTIVE ENDOTRACHEAL AIRWAY Routine 09/20/2024 10:08 AM EDT documented in this encounter Results * WI AN ELECTIVE ENDOTRACHEAL AIRWAY, PB ANESTHESIA PLACEHOLDER (09/20/2024 10:08 AM EDT) Narrative Alexsander Eric CRNA - 09/20/2024 10:08 AM EDT Alexsander Eric CRNA 09/20/2024 10:18 AM Airway Date/Time: 09/20/2024 10:08 AM Reason: elective Airway not difficult General Information and Staff Patient location during procedure: OR SURFACER: Alexsander Eric CRNA Performed: SURFACER Patient Condition Indications for airway management: anesthesia and airway protection Patient position: sniffing Final Airway Details Final airway type: endotracheal airway Successful airway: ETT Cuffed: yes Successful intubation technique: blind Endotracheal tube insertion site: tracheostomy ETT size (mm): 7.5 Placement verified by: chest auscultation and capnometry Measured from: stoma Additional Comments Moncho chest rise, Moncho breath sounds, Positive CO2, Atraumatic Dentition us Dirk Garcia MD ANESTHESIA ORDERABLES Fin al Result documented in this encounter Visit Diagnoses Not on filedocumented in this encounter Administered Medications Inactive Administered Medications - up to 3 most recent administrations Medication Order MAR Action Action Date Dose Rate Site ampicillin-sulbactam (Unasyn) injection Intravenous, As needed, Starting on Wed09/20/24 at 1014, Until Wed09/20/24 at 1040, Routine, Anesthesia Intraprocedure Given 09/20/2024 10:10 AM EDT 3 g dexamethasone (Decadron) injection Intravenous, As needed, Starting on Wed09/20/24 at 1022, Until Wed09/20/24 at 1040, Routine, Anesthesia Intraprocedure Given 09/20/2024 10:22 AM EDT 4 mg fentaNYL (Sublimaze) injection Intravenous, As needed, Starting on Wed09/20/24 at 1009, Until Wed09/20/24 at 1040, Routine, Anesthesia Intraprocedure Given 09/20/2024 10:14 AM EDT 50 mcg Given 09/20/2024 10:09 AM EDT 50 mcg HYDROmorphone PF (Dilaudid) injection Intravenous, As needed, Starting on Wed09/20/24 at 1020, Until Wed09/20/24 at 1040, Routine, Anesthesia Intraprocedure Given 09/20/2024 10:20 AM EDT 0. 5 mg lactated Ringer's infusion 100 mL/hr, Intravenous, Once, 1 dose, On Wed09/20/24 at 0945, Routine New Bag 09/20/2024 9:59 AM EDT lidocaine PF (Xylocaine) 2 % injection Epidural Infusion, As needed, Starting on Wed09/20/24 at 1017, Until Wed09/20/24 at 1040, Routine, Anesthesia Intraprocedure Given 09/20/2024 10:17 AM EDT 40 mg ondansetron (Zofran) injection Intravenous, As needed, Starting on Wed09/20/24 at 1022, Until Wed09/20/24 at 1040, Routine, Anesthesia Intraprocedure Given 09/20/2024 10:22 AM EDT 4 mg propofol (Diprivan) injection Intravenous, As needed, Starting on Wed09/20/24 at 1006, Until Wed09/20/24 at 1040, Routine, Anesthesia Intraprocedure Given 09/20/2024 10:06 AM EDT 20 0 mg documented in this encounter Additional Health Concerns Active Problems Noted Date Diagnosed Date Autogenerated Problem 07/19/2024 Autogenerated Problem 07/19/2024 Assessment Noted Time A fall risk assessment has been complete d for the patient 06/20/2024 8:36 AM EDT A Body Mass Index follow-up plan has been documented for the patient 07/18/2024 1:40 PM EDT documented as of this encounter Care Teams Delinquency Prevention Officer Relationship Specialty Start Date End Date David Capone MD [address] [place] [address] PCP - General 11/30/22 Bebeto Walton MD [address] [facility] [address] [place] [address] Surgeon Otolaryngology 11/24/21 Gregoria Aviles MD [address] [place] [address] Referring Physician 11/02/22 Em Bell MD [address] [place] [address] [phone] Surgeon Otolaryngology 01/13/23 documented as of this encounter
--- OUTSIDE RECORDS SUMMARY | 2024-09-20 10:10 | XMS_ITS | Encounter Summary ---
Author Organization Healthcare Address [address] [place] [address] Care Team Providers Care Stockroom Keeper Name Role Phone Bebeto Walton MD Unavailable Gregoria Aviles MD Unavailable [phone] David Capone MD Primary Care Provider [phone] Em Bell MD Unavailable [phone] Reason for Visit * Auth/Cert (Routine) Specialty Diagnoses / Procedures Referred By Contac t Referred To Contact Diagnoses Dysphagia, unspecified type Dysphagia, unspecified type [R13.10] Procedures [place] ESOPHAGOSCOPY FLEXIBLE TRANSORAL DIAGNOSTIC W[place] ESOPHAGOSCOPY FLEXIBLE TRANSORAL W SUBMUCOUS INJ W[place] ESOPHAGOSCOPY FLEX BALLOON DILAT <30 MM DIAM FLEXIBLE ESOPHAGOSCOPY WITH BALLOON DILATION Kyleigh Lyles MD [address] [facility] [address] [place] [address] Phone: tel: fax: [facility] [address] [place] [address] Phone: tel: Referral ID Status Reason Start Date Expiration Date Visits Re quested Visits Authorized [id number] 1 1 Encounter Details Date Type Department Care Team (Late st Contact Info) Description 09/20/2024 10:10 AM EDT - 09/20/2024 11:20 AM EDT Surgery [facility] [address] [place] [address] Kyleigh Lyles MD [address] [place] [address] FLEXIBLE ESOPHAGOSCOPY WITH BALLOON DILATION Surgery Details Date/Time Status Location OR Service Patient Class Case Class Case Type Trauma Case? 09/20/2024 10:10 AM Posted [facility]I [facility] OR 4OR06 [facility] Outpatient Surgery E-Electiv e Panel 1 Procedure [...] drink first t pavan in the morning (EYE-FUNERAL CAR DRIVER) to steady your nerves or to [...] a day. 100 mL 01/01/2024 HYDROcodone-acetami nophen ([place]) 10-325 MG tablet TAKE ONE TABLET BY [...] 59 y.o. 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 Lombardi ANESTHESIA: General ASA: III OR TEAM: Anesthesiologist: Dirk Garcia MD BARGE WORKER: Alexsander Eric CRNA Health Safety Manager: Mary Mishra Health Safety Manager: Ruchi Ramírez RN Scrub Person: Rima [...] He underwent adjuvant radiation therapy completed in [place] on 04/01/2017. He was found to have [...] 06/20/2024), Disp: 100 mL, Rfl: 0 HYDROcodone-acetaminophen ([place]) 10-325 MG tablet, TAKE ONE TABLET BY [...] pharyngoscopy INDICATION: Dysphagia PROVIDER: Kyleigh Lyles MD Back End Architect: Milli ANESTHESIA: Local (lidocaine with afrin) PROCEDURE [...] disintegrating tablet Take morning of surgery HYDROcodone-acetaminophen ([place]) 10-325 MG tablet Take morning of surgery [...] card, photo ID, along with power of tricot knitter, guardianship or advanced directives if applicable Do [...] History: Procedure Laterality Date EXPLORATORY LAPAROTOMY 06/27/2022 ([facility]) EXPLORATORY LAPAROTOMY 10/02/2022 ([facility]) OTHER SURGICAL HISTORY N/A Direct [facility] OTHER SURGICAL HISTORY N/A Biopsy of larynx from [facility] TOTAL LARYNGECTOMY N/A Total Laryngectomy from [facility] TOTAL LARYNGECTOMY TRACHEAL SURGERY [1] Allergies Allergen [...] 10/25/2024 8:30 AM EDT Hospital Encounter [facility] [address] [place] [address] Kyleigh Lyles MD [address] [facility] [address] [place] [address] 10/25/2024 8:30 AM EDT - 10/25/2024 9:40 AM EDT Surgery [facility] [address] [place] [phone] Kyleigh Lyles MD [address] [phone] FLEXIBLE ESOPHAGOSCOPY WITH BALLOON DILATION 11/03/2024 11:30 AM EDT Office Visit [facility] 800 [facility], 2nd [place] [phone] Em eBll MD [address] [facility] [address] [place] [phone] 11/13/2024 3:00 PM EDT [facility] [address] [facility] 3rd [place] [phone] Kyleigh Lyles MD [address] [phone] 12/18/2024 10:00 AM EDT Office Visit [facility] [address] [facility] 2nd [place] [address] Bebeto Walton MD [address] [phone] 01/30/2025 10:00 AM EST Appointment [facility] PET Scan [address] [place] [phone] 01/30/2025 11:00 AM EST Appointment [facility] PET Scan [address] [place] [address] 01/30/2025 1:45 PM EST Office Visit [facility] [address] [phone] Bebeto Walton MD [address] [phone] Scheduled Procedures Name Priority Associated Diagnoses Date/Ti me DILATION, ESOPHAGUS Dysphagia, unspecified type 10/25/2024 8:30 AM EDT documented as of this encounter Goals Goal Patient Goal Type Associated Problems Recent Progress Patient-Stated? Author Guerrero fulton Goal Care Plan Autogenerated Problem No Sylvia Reyes Goal Care Plan Autogenerated Problem No Sylvia [...] On Wed09/20/24 at 0945, Routine 0959 ([facility] ider: Alexsander Eric, [facility]) lactated Ringer's infusion 20 mL/hr, Intravenous, [...] documented as of this encounter Care Teams Stockroom Keeper Relationship Specialty Start Date End Date David Capone MD [address] [place] [address] PCP - General 11/30/22 Bebeto Walton MD [address]40 [facility] [address] [place] [address] Surgeon Otolaryngology 11/24/21 Gregoria Aviles MD [address] [place] [address] Referring Physician 11/02/22 Em Bell MD 800 [facility] Cancer [address] [phone] Surgeon Otolaryngology 01/13/23 documented as of this encounter
--- OUTSIDE RECORDS SUMMARY | 2024-10-05 14:00 | XMS_ITS | Encounter Summary ---
Author Organization Healthcare Address [address] [place] [address] Care Team Providers Care Respiratory Coordinator Name Role Phone Bebeto Walton MD Unavailable Gregoria Aviles MD Unavailable [phone] David Capone MD Primary Care Provider [phone] Em Bell MD Unavailable [phone] Reason for Referral * Imaging (Routine) - Pending Review Specialty Diagnoses / Procedures Referred By Contac t Referred To Contact Radiology Diagnoses Primary tongue squamous cell carcinoma Procedures PET/CT FDG Skull Base To Mid Thigh Bebeto Walton MD [address] [address] Phone: tel: fax: Referral ID Status Reason Start Date Expiration Date V isits Requested Visits Authorized [id number] Pending Review 10/05/2024 04/06/2026 2 2 Reason for Visit * Reason Comments Follow-up Encounter Details Date Type Department Care Team ([facility] Contact Info) Description 10/05/2024 2:00 PM EDT Office Visit [facility] Respiratory [address] , [address] [place] [phone] Bebeto Walton MD [address] [address] Primary tongue squamous cell carcinoma Social History Tobacco Use Types Packs/Day Years [...] place to sleep or slept in a chcf (including now)? No 02/15/2023 CAGE ASSESSMENT Answer [...] drink first t pavan in the morning (EYE-DIFFERENTIAL SPECIALIST) to steady your nerves or to get [...] Sign Reading Time Taken Comments Blood Pressure 118/83 10/05/2024 1:07 PM EDT Pulse 84 10/05/2024 1:07 PM EDT Temperature 37 C (98.6 F) 10/05/2024 1:07 PM EDT Respiratory Rate 12 10/05/2024 1:07 PM EDT Oxygen Saturation 95% 10/05/2024 1:07 PM EDT Inhaled Oxygen Concentration - - Weight 91.7 kg (202 lb 2.6 oz) 10/05/2024 1:07 P M EDT Height - - Body Mass Index 25.27 09/20/2024 8:57 AM EDT documented in this encounter Miscellaneous Notes * Progress Notes - Giovanni Murphy MD - 10/05/2024 2:00 PM EDT Images from the original note were not included. Mr. Anupam Metz Jr. is a very pleasant 59 y.o. patient who is returning to my clinic in followup for his follow-up. He was seen in my clinic on 06/20/2024 and recommended follow up in in 3 months as well as referral to Dr. Lyles for evaluation of his dysphagia for possible dilation. 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 He underwent adjuvant radiation therapy completed in [place] on 04/01/2017. 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 He was seen in my clinic on 05/28/2017 and missed all his appointments with me however he continuedto follow-up in [place]. He started complaining of right tongue pain with the ear pain in mid May 2022. He was evaluated by Dr. Gregoria Aviles and underwent a biopsy on 10/26/2022 of the right oraltongue and pathology revealed invasive moderately differentiated squamous cell carcinoma. He was then recommended consult with me for evaluation and management. He underwent CT neck, chest and CT abdomen pelvis with runoff on 12/28/2022. He has a right anterior tongue in the floor of mouth mass that does not appear to involve the mandible. I took him to the operating room on 02/12/2023 for a composite resection and underwent free flap reconstruction with Dr. Em Bell and was found to have a T3 N1 squamous cell carcinoma, 3.2 cm of the right oral tongue with lymphovascular invasion and negative margins. He was evaluated in the clinic on 05/13/[address] Bell and recommended a PET-CT scan and follow up in my clinic. I took him to the operating room on 12/31/2023 for submental dissection. He was found to have an 8 mm metastatic lymph node without extranodal extension. He did well with surgery and denied complications. He was found to have a rash mostly on his back in the back of the head. PET-CT scan from 03/30/2024 did not reveal any evidenceof disease. Restaging CT scans of the neck and chest from 06/20/2024 did not reveal any evidence of disease. Multiple calcified lung nodules. He underwent a barium swallow on 06/16/2024 and this revealed narrowing mostly at the level of C5 and the inferior neopharynx. Patient was seen by Dr. Lyles and underwent esophageal dilation with Kenalog injection to cricopharyngeus on for CP hypertrophy and upper esophageal sphincter narrowing. Patient reported improvement in his swallowing after the procedure but is frustrated with the bulky flap of his tongue. He would like to debulked to help in chewing solid foods. He denies any other concerns. He continues to use electrolarynx. The patient denied otorrhea, hearing loss, vertigo or tinnitus. He denied having sinonasal symptoms, postnasal drip, epistaxis, nasal congestion/obstruction or anosmia/hyposmia. He also denied dysphagia, odynophagia, dysphonia, dyspepsia, dyspnea or reflux disease. The patient's complete review of system from 10/05/24 was performed today. All systems were negative except for those mentioned in the HPI, hypothyroidism. Radiographs: - CT scan of the neck: . 12/28/2022: Right anterior oral tongue that extends into the floor of mouth abutting the mandiblewithout invasion . 06/20/2024: No evidence of disease in the head and neck region - CT scan of the chest: . 12/28/2022: Centrilobular emphysema with numerous calcified granulomas but no evidence of thoracic malignancy . 06/20/2024: Multiple calcified bilateral lung nodules, no evidence of thoracic malignancy - PET CT scan: . 11/15/2023: Hypermetabolic submental lymph node without any regional or distant disease . 03/30/2024: No Obvious hypermetabolic disease or distant metastasis. I independently reviewed the images. I discussed my findings with the patient. 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 with lymphovascular invasion,negative margins -12/31/2019 4: 8 mm submental lymph node consistent with metastatic squamous cell carcinoma withoutextranodal extension Allergies: Allergies Allergen Reactions Gabapentin Other - please document in the comment field Tramadol Other - please document in the comment field Stomach issues Past medical history: As in history of present illness, hypothyroidism Past surgical history: Total laryngectomy/thyroidectomy 12/31/2016, abdominal surgery x2, -02/12/2023: Composite resection right oral cavity with the ALT flap reconstruction, submental neck [id number]/25/2024 Family history: reviewed and consistent with breast cancer in his sister Social history: The patient drinks 6-8 beers every day. PHYSICAL EXAMINATION: Visit Vitals BP 118/83 Pulse 84 Temp 37 ??C (98.6 ??F) Wt 91.7 kg (202 lb 2.6 oz) SpO2 95% BMI 25.27 kg/m?? General: he is a very healthy-appearing 59 y.o. patient, alert and oriented x3, in no acute distress, well nourished, well developed. Psychiatric evaluation: Normal mood and affect, very pleasant and cooperative. Otoscopy: did not reveal any cerumen impaction. Tympanic membranes are normal without any middle ear effusions. Nasal cavity examination: Septum is midline. I did not see any pus or polyps. Oral cavity examination: No evidence of disease in the oral cavity. Palpation of the tongue and floor of mouth normal. Bulky ALT flap in place of right tongue with normal appearing [place] left tongue. Tongue is limiting the complete occlusion. Oropharynx: Tonsils are unremarkable bilaterally. Neck: Submental neck incision is clean, dry and intact. Swelling of right upper neck. Eyes: Extraocular movements are intact bilaterally. PERRLA. Neurological examination: Cranial nerves II-XII are grossly intact. Skin of the neck and face: did not reveal any evidence of significant rashes or suspicious appearing nevi or other concerning lesions. Endocrine examination: I do not feel any thyroid nodules. No thyromegaly. Respiratory: chest is symmetrical, breathing comfortably without effort. 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 I reviewed all the patient's records available to me and I summarized my findings in the note. He underwent a barium swallow on 06/16/2024 and this revealed narrowing mostly at the level of C5 and theinferior neopharynx. Patient was seen by Dr. Lyles and underwent esophageal dilation with Kenalog injection to cricopharyngeus on for CP hypertrophy and upper esophageal sphincter narrowing. The patient's clinical examination revealed swelling of the right upper neck and normal examinationof the oral cavity without any suspicious lesions. He has bulky flap reconstructing his right tongue that is affecting his chewing function due to its size. dysphagia otherwise has improved since esophageal dilation and Kenalog injection of CP. I discussed that he can discuss debulking of the flap procedure with Dr. Bell. We will send a referral to have patient see her in clinic. Regarding his dysphagia, I recommended evaluation by Dr. Kyleigh Lyles in consideration for esophagoscopy/dilation. I will see him in my clinic in 4 months with PET-CT, sooner if he has any problems or concerns. *Digital speech recognition software was used to dictate this note and, despite all efforts to proofread, some dictation errors may occur. If you have any questions, please do not hesitate to contactme. Bebeto Walton MD MS FACS Staining Machine Operator Head & Neck Oncology Thyroid/Parathyroid Surgery Rhinology & Skull Base Surgery Cosigned by Bebeto Walton MD at 10/05/2024 2:41 PM EDT Associated attestation - Bebeto Walton MD - 10/05/2024 2:41 PM EDT I saw and evaluated the patient with the resident/fellow. I discussed the case with the resident/fellow and agree with the findings and plan as documented. documented in this encounter Plan of Treatment Upcoming Encounters Date Type Department Care Team (Latest Contact Info) Description 10/25/2024 8:30 AM EDT Hospital Encounter [facility] [address] [place] [address] Kyleigh Lyles MD [address] [address] 10/25/2024 8:30 AM EDT - 10/25/2024 9:40 AM EDT Surgery [facility] [address] [place] [address] Kyleigh Lyles MD [address] [address] FLEXIBLE ESOPHAGOSCOPY WITH BALLOON DILATION 11/03/2024 11:30 AM EDT Office Visit [facility] [address] [facility], [address]nd [place] [address] Em Bell MD [address] [facility] [address] [place] [phone] 11/13/2024 3:00 PM EDT [facility] [address] [place] [address] Kyleigh Lyles MD [address] [address] 12/18/2024 10:00 AM EDT Office Visit [facility] [address] [facility], [address] [place] [phone] Bebeto Walton MD [address] [phone] 01/30/2025 10:00 AM EST Appointment [facility] PET Scan [address] [place] [address] 01/30/2025 11:00 AM EST Appointment [facility] PET Scan [address] [place] [address] 01/30/2025 1:45 PM EST Office Visit [facility] [address] [facility] [place] [phone] Bebeto Walton MD [address] [address] Scheduled Orders Name Type Priority Associated Diagnoses Orde r Schedule PET/CT FDG Skull Base To Mid Thigh Imaging Routine Primary tongue squamous cell carcinoma Expected: 02/04/2025 (Approximate), Expires: 04/08/2026 Scheduled Procedures Name Priority Associated Diagnoses Date/Ti me DILATION, ESOPHAGUS Dysphagia, unspecified type 10/25/2024 8:30 AM EDT documented as of this encounter Goals Goal Patient Goal Type Associated Problems Recent Progress Patient-Stated? Author Guerrero fulton Goal Care Plan Autogenerated Problem No Sylvia Reyes Autovirgie fulton Goal Care Plan Autogenerated Problem No Sylvia Reyes documented as of this encounter Visit Diagnoses Diagnosis Primary tongue squamous cell carcinoma Dysphagia, unspecified type documented in this encounter Additional Health Concerns Active Problems Noted Date Diagnosed Date Autogenerated Problem 07/19/2024 Autogenerated Problem 07/19/2024 Assessment Noted Time A fall risk assessment has been complete d for the patient 10/05/2024 1:09 PM EDT A Body Mass Index follow-up plan has been documented for the patient 10/05/2024 2:41 PM EDT documented as of this encounter Care Teams Respiratory Coordinator Relationship Specialty Start Date End Date David Capone MD [address] [place] [address] PCP - General 11/30/22 Bebeto Walton MD [address] [phone] Surgeon Otolaryngology 11/24/21 Gregoria Aviles MD [address] [phone] Referring Physician 11/02/22 Em Bell MD [address] [address] Surgeon Otolaryngology 01/13/23 documented as of this encounter
--- OUTSIDE RECORDS SUMMARY | 2024-10-06 10:50 | XMS_ITS | Encounter Summary ---
Author Organization Healthcare Address [address] [place] [address] Care Team Providers Care Client Renewal Specialist Name Role Phone Bebeto Walton MD Unavailable Gregoria Aviles MD Unavailable [phone] David Capone MD Primary Care Provider [phone] Em Bell MD Unavailable [phone] Reason for Visit * Reason Comments Post-op Encounter Details Date Type Department Care Team (Latest Contact Info) Description 10/06/2024 10:50 AM EDT Office Visit [facility] [address], 3rd [place] [address] Kyleigh Lyles MD [address] [place] [address] Oropharyngeal dysphagia (Primary Dx) Social History Tobacco Use Types Packs/Day Years Used Date Smoking Tobacco: Former Cigarettes 1 35 1 981 - 2016 Smokeless Tobacco: Never Tobacco Cessation:Counseling Given: Not Answered Alcohol Use Standard Drinks/Week Comments Not Currently [...] place to sleep or slept in a intermediate (including now)? No 02/15/2023 CAGE ASSESSMENT Answer [...] drink first t pavan in the morning (EYE-PHARMACY COORDINATOR) to steady your nerves or to get [...] Sign Reading Time Taken Comments Blood Pressure 120/79 10/06/2024 10:46 AM EDT Pulse 76 10/06/2024 10:46 AM EDT Temperature - - Respiratory Rate - - Oxygen Saturation - - Inhaled Oxygen Concentration - - Weight 91.6 kg (202 lb) 10/06/2024 10:46 AM EDT Height 190.5 cm (6' 3 ) 10/06/2024 10:46 AM EDT Body Mass Index 25.25 10/06/2024 10:46 AM EDT documented in this encounter Miscellaneous Notes * Progress Notes - Kyleigh Lyles MD - 10/06/2024 10:50 AM EDT OTOLARYNGOLOGY - HEAD & NECK SURGERY FOLLOW-UP NOTE Chief Complaint Patient presents with Post-op TREATMENT HISTORY: Anupam Metz Jr. is a 59 y.o. male with significant history of dysphagia. he presents for a post operative visit. 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 He underwent adjuvant radiation therapy completed in [place] on 04/01/2017. 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 He was noted to have dysphagia and a prominent CP/ esophageal stricture. Recommendation was made for dilation in the OR. PREOPERATIVE DIAGNOSIS: Dysphagia Upper esophageal sphincter narrowing Cricopharyngeal hypertrophy PROCEDURE PERFORMED: Flexible esophagoscopy with balloon dilation Kenalog injection to cricopharyngeus OPERATIVE FINDINGS: Prominent CP bar causing narrowing of the upper esophageal sphincter that was easily dilated to 15 mm. CP bar itself was soft and compressible. No evidence of further esophageal stenosis or narrowingdistally. No irregularity at the Z-line Able to pass the esophagoscope through the GE junction without difficulty. PHYSICAL EXAM: BP 120/79 Pulse 76 Ht 1.905 m (6' 3 ) Wt 91.6 kg (202 lb) BMI 25.25 kg/m?? Gen: Well developed, well nourished male in no apparent distress. Neuro: A&Ox3. Respiratory: No increased WOB, no stridor OC/OP: Tongue midline and mobile, no oral cavity lesions or masses. No tonsillar hypertrophy. Flap viable. Lymph: No palpable lymphadenopathy DATA REVIEW Dr. Walton 10/05/24 I reviewed all the patient's records available [...] if he has any problems or concerns. Assessment/Plan Doing well s/p dilation. Will plan on repeat dilation to 20mm. If symptoms return after dilation, can consider CP myotomy endoscopically. documented in this encounter Plan of Treatment Upcoming Encounters Date Type Department Care Team (Latest Contact Info) Description 10/25/2024 8:30 AM EDT Hospital Encounter [facility] [address] [place] [phone] Kyleigh Lyles MD [address] [facility] [place] [address] 10/25/2024 8:30 AM EDT - 10/25/2024 9:40 AM EDT Surgery [facility] [address] [place] [phone] Kyleigh Lyles MD [address] [address] FLEXIBLE ESOPHAGOSCOPY WITH BALLOON DILATION 11/03/2024 11:30 AM EDT Office Visit [facility] Head[facility] Neck & Respiratory 800 [facility], 2nd [place] [phone] Em Bell MD 800 [facility] [address] [place] [phone] 11/13/2024 3:00 PM EDT Office Visit [place] [facility] [address], 3rd [place] [address] Kyleigh Lyles MD [address] [phone] 12/18/2024 10:00 AM EDT Office Visit [facility] Res[facility] 800 [facility], 2nd [place] [phone] Bebeto Walton MD [address] [address] 01/30/2025 10:00 AM EST Appointment [facility] PET Scan 800 [place] [phone] 01/30/2025 11:00 AM EST Appointment [facility] PET Scan [address] [place] [phone] 01/30/2025 1:45 PM EST Office Visit [facility] Res[facility] 800 [facility], 2nd [place] [address] Bebeto Walton MD [address] [facility] [address] [place] [address] Scheduled Procedures Name Priority Associated Diagnoses Date/Ti me DILATION, ESOPHAGUS Dysphagia, unspecified type 10/25/2024 8:30 AM EDT documented as of this encounter Goals Goal Patient Goal Type Associated Problems Recent Progress Patient-Stated? Author Autogene kirstin Goal Care Plan Autogenerated Problem No Sylvia Reyes Eduardo Autogenera kirstin Goal Care Plan Autogenerated Problem No AmySylvia documented as of this encounter Visit Diagnoses Diagnosis Oropharyngeal dysphagia- Primary Dysphagia, oropharyngeal phase Dysphagia, unspecified type documented in this encounter Additional Health Concerns Active Problems Noted Date Diagnosed Date Autogenerated Problem 07/19/2024 Autogenerated Problem 07/19/2024 Assessment Noted Time A fall risk assessment has been complete d for the patient 10/05/2024 1:09 PM EDT A Body Mass Index follow-up plan has been documented for the patient 10/08/2024 1:54 PM EDT documented as of this encounter Care Teams Client Renewal Specialist Relationship Specialty Start Date End Date David Capone MD 1551 [facility] 1551 [place] [address] PCP - General 11/30/22 Bebeto Walton MD [address] [facility] [address] [place] [address] Surgeon Otolaryngology 11/24/21 Gregoria Aviles MD 8 [place] [address] Referring Physician 11/02/22 Em Bell MD 800 [facility] [address] [phone] Surgeon Otolaryngology 01/13/23 documented as of this encounter
[2024-10-19 11:59] VITALS: BP 119/93; PULSE 96; RESP 18; TEMP 37.1; O2SAT 95; BMI 25.0
--- NOTE | 2024-10-19 12:01 | ECG_ITS ---
APPROVED REPORT Exam: Resting ECG HR:103 bpm ECG Measurements Heart Rate 103 AXES OR 147 P 62 QRSd 104 QRS 29 QT 339 T 18 QTc 398 Conclusion SINUS TACHYCARDIA WITH FREQUENT VENTRICULAR PREMATURE COMPLEXES ABNORMAL RHYTHM ECG UNCONFIRMED REPORT Electronically signed by : CRISTOFER RAIN, 10/20/2024 00:36:44
--- OUTSIDE RECORDS SUMMARY | 2024-10-19 12:09 | XMS_ITS | Encounter Summary ---
Author Organization Healthcare Address [address] [place] [address] Care Team Providers Care Solution Designer Name Role Phone Bebeto Walton MD Unavailable Gregoria Aviles MD Unavailable [phone] David Capone MD Primary Care Provider [phone] Em Bell MD Unavailable [phone] Encounter Details Date Type Department Care [...] first t pavan in the morning (EYE-CLINICAL TRIAL ASSISTANT) to steady your nerves or to get rid of a hangover? 1 10/02/2022 CAGE Questionnaire Score 2 023 Utilities Answer Date Recorded In the past 12 months has th e [employer], gas, oil, or water company threatened to [...] 8:30 AM EDT Hospital Encounter [facility] [address] [place] [phone] Kyleigh Lyles MD [address] [address] 10/25/2024 8:30 AM EDT - 10/25/2024 9:40 AM EDT Surgery [facility] 800 [place] [phone] Kyleigh Lyles MD [address] [phone] FLEXIBLE ESOPHAGOSCOPY WITH BALLOON DILATION 11/03/2024 11:30 AM EDT Office Visit [facility] 800 [facility], 2nd [place] [phone] Em Bell MD 800 [facility] [address] [place] [phone] 11/13/2024 3:00 PM EDT Office Visit [place] [facility] [address], 3rd [place] [address] Kyleigh Lyles MD [address] [phone] 12/18/2024 10:00 AM EDT Office Visit [facility] 800 [facility], 2nd [place] [phone] Bebeto Walton MD [address] [address] 01/30/2025 10:00 AM EST Appointment [facility] PET Scan 800 [place] [address] 01/30/2025 11:00 AM EST Appointment [facility] PET Scan 800 [place] [phone] 01/30/2025 1:45 PM EST Office Visit [facility] 800 [facility], 2nd [place] [phone] Bebeto Walton MD [address] [address] Scheduled Procedures Name Priority Associated [...] documented as of this encounter Care Teams Solution Designer Relationship Specialty Start Date End Date David Capone MD [facility] [place] [address] PCP - General 11/30/22 Bebeto Walton MD [address] [phone] Surgeon Otolaryngology 11/24/21 Gregoria Aviles MD 8 [place] [address] Referring Physician 11/02/22 Em Bell MD 800 [facility] [address] [phone] Surgeon Otolaryngology 01/13/23 documented as of this encounter
--- OUTSIDE RECORDS SUMMARY | 2024-10-19 12:09 | XMS_ITS ---
Author Organization Healthcare Address [address] [place] [address] Care Team Providers Care Material Coordinator Name Role Phone Bebeto Walton MD Unavailable Gregoria Aviles MD Unavailable [phone] David Capone MD Primary Care Provider [phone] Em Bell MD Unavailable [phone] Active Problems Problem Noted Date Diagnosed Date [...] completed Follow up with outpatient trauma surgery [facility] clinic in 4 weeks following discharge for [...]
--- OUTSIDE RECORDS SUMMARY | 2024-10-19 12:09 | XMS_ITS | Encounter Summary ---
Author Organization Healthcare Address [address] [place] [address] Care Team Providers Care Air Brakes Inspector Name Role Phone Bebeto Walton MD Unavailable Gregoria Aviles MD Unavailable David Capone MD Primary Care Provider [phone] Em Bell MD Unavailable [phone] Encounter Details Date Type Department Care Team (Late st Contact Info) Description 02/15/2023 Lab Requisition [facility] [address] [place] [address] Khalif Fountain MD [address] [facility] [address] [place] [phone] Encounter for general adult medical examination without [...] place to sleep or slept in a [place] facility (including now)? No 02/15/2023 CAGE ASSESSMENT Answer [...] drink first t pavan in the morning (EYE-SQUIRREL MAN) to steady your nerves or to get rid of a hangover? 1 10/02/2022 CAGE Questionnaire Score 2 023 Utilities Answer Date Recorded In the past 12 months has th [employer], gas, oil, or water [email or web address] threatened to shut off services in your [...] Encounter [facility] [address] [place] [phone] Kyleigh Lyles MD [address] [phone] 10/25/2024 8:30 AM EDT - 10/25/2024 9:40 AM EDT Surgery [facility] 800 [place] [address] Kyleigh Lyles MD [address] [phone] FLEXIBLE ESOPHAGOSCOPY WITH BALLOON DILATION 11/03/2024 11:30 AM EDT Office Visit [facility] 800 [facility], 2nd [place] [address] Em Bell MD 800 [facility] [address] [place] [phone] 11/13/2024 3:00 PM EDT Office Visit [place] [facility] [address], 3rd [place] [phone] Kyleigh Lyles MD [address] [phone] 12/18/2024 10:00 AM EDT Office Visit [facility] [place] [address] Bebeto Walton MD [address] [address] 01/30/2025 10:00 AM EST Appointment [facility] PET Scan 800 [place] [phone] 01/30/2025 11:00 AM EST Appointment [facility] PET Scan 800 [place] [phone] 01/30/2025 1:45 PM EST Office Visit [facility] [address] [phone] Bebeto Walton MD [address] [phone] Scheduled Procedures Name Priority Associated Diagnoses Date/Ti [...] ORDERABLES Final Result [facility] 800 [place] [address] documented in this encounter Visit Diagnoses Diagnosis [...] documented as of this encounter Care Teams Air Brakes Inspector Relationship Specialty Start Date End Date David Capone MD 1551 [facility] [address]51 [place] [address] PCP - General 11/30/22 Bebeto Walton MD [address] [facility] [address] [place] [address] Surgeon Otolaryngology 11/24/21 Gregoria Aviles MD 8 [place], [place] [phone] Referring Physician 11/02/22 Em Bell MD [address] [address] Surgeon Otolaryngology 01/13/23 documented as of this encounter
--- OUTSIDE RECORDS SUMMARY | 2024-10-19 12:10 | XMS_ITS | Encounter Summary ---
Author Organization Healthcare Address [address] [place] [address] Care Team Providers Care Home Office Claims Examiner Name Role Phone Ana Dickson FILENET DEVELOPER Primary Care Provider Bebeto Walton MD Unavailable Gregoria Aviles MD Unavailable [phone] David Capone MD Primary Care Provider [phone] Em Bell MD Unavailable [phone] Encounter Details Date Type Department Care Team (Late st Contact Info) Description 10/05/2022 Lab Requisition [facility] H Lab 800 [place] [address] Yajaira Pisano MD [address] [address] Encounter for general adult medical [...] drink first t pavan in the morning (EYE-PRESSER HAND) to steady your nerves or to [...] Description 10/25/2024 8:30 AM EDT Hospital [facility] 800 [place] [phone] Kyleigh Lyles MD [address] [place] [phone] 10/25/2024 8:30 AM EDT - 10/25/2024 9:40 AM EDT Surgery [facility] 800 [place] [phone] Kyleigh Lyles MD [address] [place] [phone] FLEXIBLE ESOPHAGOSCOPY WITH BALLOON DILATION 11/03/2024 11:30 AM EDT Office Visit [facility] [address] [phone] Em Bell MD 800 [facility] [address] [place] [phone] 11/13/2024 3:00 PM EDT [place] Visit [place] [facility] [address], 3rd [place] [phone] Kyleigh Lyles MD [address] [phone] 12/18/2024 10:00 AM EDT Office Visit [facility] [address] [address] Bebeto Walton MD [address] [address] 01/30/2025 10:00 AM EST Appointment [facility] PET Scan [address] [place] [phone] 01/30/2025 11:00 AM EST Appointment [facility] PET Scan 800 [place] [address] 01/30/2025 1:45 PM EST Office Visit [facility] [address] [phone] Bebeto Walton MD [address] [phone] Scheduled Procedures Name Priority Associated Diagnoses Date/Ti [...] GENERAL ORDERABLES Final Result [facility] 800 [place] [address] documented in this encounter Visit Diagnoses Diagnosis Encounter for general adult medical examination without abnormal findings Dysphagia, unspecified type documented in this encounter Care Teams Home Office Claims Examiner Relationship Specialty Start Date End Date Ana Dickson APRN PCP - General 07/19/20 11/29/22 David Capone MD 1551 [facility] 1551 [place] [address] PCP - General 11/30/22 Bebeto Walton MD 740 [facility] [address] [place] [phone] Surgeon Otolaryngology 11/24/21 Gregoria Aviles MD 8 [place], [place] [phone] Referring Physician 11/02/22 Em Bell MD 800 [facility] [address] [address] Surgeon Otolaryngology 01/13/23 documented as of this encounter
--- OUTSIDE RECORDS SUMMARY | 2024-10-19 12:10 | XMS_ITS | Clinical Summary ---
Author Organization Healthcare Address [address] [place] [address] Care Team Providers Care Railroader Name Role Phone Bebeto Walton MD Unavailable Gregoria Aviles MD Unavailable [phone] David Capone MD Primary Care Provider [phone] Em Bell MD Unavailable [phone] Allergies Active Allergy Reactions Criticality Noted [...] days. 45 tablet 03/30/19 Active HYDROcodone-acetam inophen (Concan) 10-325 MG tablet TAKE ONE TABLET BY [...] completed Follow up with outpatient trauma surgery [facility] clinic in 4 weeks following [...] Office Visit [place] [facility] Ot[facility] [address], 3rd [place] [address] Kyleigh Lyles MD Oropharyngeal dysphagia (Primary Dx) 10/06/2024 Travel 10/05/2024 2:00 PM EDT Office Visit [facility] [address], 2nd [place] [address] Bebeto Walton MD Primary tongue squamous cell carcinoma 10/05/2024 Travel 10/02/2024 Social Work Psych Oncology 800 [place] [phone] MeghanMadalyn cummings Darion 09/20/2024 10:10 AM EDT - 09/20/2024 11:20 AM EDT Surgery [address] [phone] Kyleigh Lyles MD FLEXIBLE ESOPHAGOSCOPY WITH BALLOON DILATION 09/20/2024 9:59 AM EDT Anesthesia Event [address] [address] Dirk Garcia MD 09/20/2024 8:43 AM EDT - 09/20/2024 11:47 AM EDT Hospital Encounter [address] [phone] Kyleigh Lyles MD Discharge Disposition: Home or [...] to sleep or slept in a senior living (including now)? No 02/15/2023 CAGE ASSESSMENT Answer [...] drink first t pavan in the morning (EYE-WARPER CREELER) to steady your nerves or to get rid of a hangover? 1 10/02/2022 CAGE Questionnaire Score 2 023 Utilities Answer Date Recorded In the past 12 months has th e electric, gas, oil, or water [employer] threatened to shut off services in your [...] [facility] [address] [place] [phone] Kyleigh Lyles MD [address] [phone] 10/25/2024 8:30 AM EDT - 10/25/2024 9:40 AM EDT Surgery [facility] 800 [place] [phone] Kyleigh Lyles MD [address] [phone] FLEXIBLE ESOPHAGOSCOPY WITH BALLOON DILATION 11/03/2024 11:30 AM EDT Office Visit [facility] 800 [facility], 2nd [place] [phone] Em Bell MD [address] [facility] 2nd [place] [address] 11/13/2024 3:00 PM EDT Office Visit [place] [facility] Ot[facility] [address], 3rd [place] [phone] Kyleigh Lyles MD [address] [address] 12/18/2024 10:00 AM EDT Office Visit [facility] 800 [facility] 2nd [place] [address] Bebeto Walton MD [address] [phone] 01/30/2025 10:00 AM EST Appointment [facility] PET Scan [address] [place] [phone] 01/30/2025 11:00 AM EST Appointment [facility] PET Scan [address] [place] [phone] 01/30/2025 1:45 PM EST Office Visit [facility] [address] [place] [address] 2nd [place] [phone] Bebeto Walton MD [address] [phone] Scheduled Procedures Name Priority Associated Diagnoses Date/Ti [...] 05/26/2012 Sigmoidoscopy 05/26/2012 [facility]-Colorectal Cancer Screening 05/26/2012 [id number] Vaccine ( season) 2023 01/22/2021, 06/06/2020, 05/09/2020 [...] ANESTHESIA PLACEHOLDER Routine 09/20/2024 10:08 AM EDT MT AN ELECTIVE ENDOTRACHEAL AIRWAY Routine 09/20/2024 10:08 AM EDT DILATION, ESOPHAGUS 09/20/2024 9 :54 AM EDT Dysphagia, unspecified type CT CHEST W IV CONTRAST STAT 06/20/2024 8:22 AM EDT Primary tongue squamous cell carcinoma Oropharyngeal dysphagia HEMOGLOBIN A1C Add-On 10/03/2022 12:11 AM EDT from Last 3 Months or Most Recently Relevant to Health Maintenance Results * MT AN ELECTIVE ENDOTRACHEAL AIRWAY, PB ANESTHESIA PLACEHOLDER (09/20/2024 10:08 AM EDT) Narrative Alexsander Eric CRNA - 09/20/2024 10:08 AM EDT Alexsander Eric CRNA 09/20/2024 10:18 AM Airway Date/Time: 09/20/2024 10:08 AM Reason: elective Airway not difficult General Information and Staff Patient location during procedure: OR FILAMENT COIL WINDER: Alexsander Eric CRNA Performed: FILAMENT COIL WINDER Patient Condition Indications for airway management: anesthesia [...] Adults <6.0% Children and Adolescents <7.5% Source: [place] [employer]. Standards of medical care in diabetes,2017. Diabetes Care.2017:40 (suppl 1):S1-S135. HbA1c assay performed by an ion-exchange chromatography method that is certified traceable to the DCCT. us Malachi Gomez MD LAB BLOOD ORDERABLES Final Res ult [facility] [address] [place] [address] from Last 3 Months or Most Recently Relevant to Health Maintenance Additional Health Concerns Active Problems Noted Date Diagnosed Date Autogenerated Problem 07/19/2024 Autogenerated Problem 07/19/2024 Insurance [facility] MEDICAID Advance Directives * Full Code [...] Patient has decision-making capacity? Yes Care Teams Railroader Relationship Specialty Start Date End Date David Capone MD 1551 [facility] 1551 [place] [address] PCP - General 11/30/22 Bebeto Walton MD [address] [facility] [address] [place] [address] Surgeon Otolaryngology 11/24/21 Gregoria Aviles MD 8 [place] [address] Referring Physician 11/02/22 Em Bell MD [address] [address] Surgeon Otolaryngology 01/13/23
--- OUTSIDE RECORDS SUMMARY | 2024-10-19 12:10 | XMS_ITS | Encounter Summary ---
Author Organization Healthcare Address [address] [place] [address] Care Team Providers Care Gang Tailer Name Role Phone Ana Dickson SENIOR QA ANALYST Primary Care Provider Bebeto Walton MD Unavailable Gregoria Aviles MD Unavailable [phone] David Capone MD Primary Care Provider [phone] Em Bell MD Unavailable [phone] Encounter Details Date Type Department Care Team (Late st Contact Info) Description 11/12/2022 Lab Requisition [facility] [address] [place] [address] Bebeto Walton MD [address] [place] [address] Other diseases of tongue Social History Tobacco [...] drink first t pavan in the morning (EYE-FLOW WORKER) to steady your nerves or to get [...] 8:30 AM EDT Hospital Encounter [facility] [address] [place] [phone] Kyleigh Lyles MD [address] [address] 10/25/2024 8:30 AM EDT - 10/25/2024 9:40 AM EDT Surgery [facility] 800 [place] [phone] Kyleigh Lyles MD [address] [address] FLEXIBLE ESOPHAGOSCOPY WITH BALLOON DILATION 11/03/2024 11:30 AM EDT Office Visit [facility] 800 [facility], 2nd [place] [phone] Em Bell MD 800 [facility] [address] [place] [address] 11/13/2024 3:00 PM EDT Office Visit [place] [facility] [address], 3rd [place] [address] Kyleigh Lyles MD [address] [address] 12/18/2024 10:00 AM EDT Office Visit [facility] 800 [facility], 2nd [place] [phone] Bebeto Walton MD [address] [address] 01/30/2025 10:00 AM EST Appointment [facility] PET Scan [address] [place] [phone] 01/30/2025 11:00 AM EST Appointment [facility] PET Scan [address] [place] [phone] 01/30/2025 1:45 PM EST Office Visit [facility] [address] [phone] Bebeto Walton MD [address] [address] Scheduled Procedures Name Priority Associated Diagnoses Date/Ti me DILATION, ESOPHAGUS Dysphagia, unspecified type 10/25/2024 8:30 AM EDT documented as of this encounter Procedures Procedure Name Priority Date/Time Associated Diagnosis Comments SURGICAL PATHOLOGY CONSULT Routine 11/12/2022 10:59 AM EDT Other diseases of tongue documented in this encounter Results * Surgical Pathology Consult (11/12/2022 10:59 AM EDT) Case Report Sugical Pathology Consult Case: [id number] Authorizing Provider: Bebeto Walton MD Collected: 11/12/2022 1059 Ordering Location: [facility] Lab Received: 11/12/2022 1100 Pathologist: Yang Perez MD Specimen: Tongue, [id number] 3 3:15 PM EDT [facility] Final Diagnosis A. RIGHT LATERAL TONGUE LESION, BIOPSIES (OUTSIDE CASE [id number]; COLLECTED ON 10/26/2022): - INVASIVE MODERATELY DIFFERENTIATED SQUAMOUS CELL CARCINOMA 3 3:15 PM EDT HEALTHCARE LAB at 1515 EDT Clinical Information K14.8 - Other diseases of tongue [ICD-10-CM] 3 3:15 PM EDT [facility]ALTH[facility]ARE [facility] Gross Description A. [id number] Received along with a corresponding pathology report from [facility] are 2 slide(s) and 1 block labeled outside case: [id number] collected on 10/26/2022. 3 3:15 PM EDT [...] ORDERABLES Final R esult [facility] 800 [place] [address] documented in this encounter Visit Diagnoses Diagnosis Other diseases of tongue Dysphagia, unspecified type documented in this encounter Care Teams Gang Tailer Relationship Specialty Start Date End Date Ana Dickson APRN PCP - General 07/19/20 11/29/22 David Capone MD [address] [place], [place] [phone] PCP - General 11/30/22 Bebeto Walton MD [address] [facility] [address] [place] [address] Surgeon Otolaryngology 11/24/21 Gregoria Aviles MD [address] [place] [address] Referring Physician 11/02/22 Em Bell MD [address] [place] [address] [address] Surgeon Otolaryngology 01/13/23 documented as of this encounter
--- OUTSIDE RECORDS SUMMARY | 2024-10-19 12:10 | XMS_ITS | CCD ---
Author Name Interface, [id number] lit Address [address] [place] [address] Organization [facility] Address [address] [place] [address] Care Team Providers Care Scrap Charger Name Role Phone Manuel WONG, Yury [place] Unavailable Unavailable Reason for Visit Social History
--- OUTSIDE RECORDS SUMMARY | 2024-10-19 12:10 | XMS_ITS | Encounter Summary ---
Author Organization Healthcare Address [address] [place] [address] Care Team Providers Care Chili Pepper Grinder Name Role Phone Ana Dickson DIVISION ROADMASTER Primary Care Provider [phone] Bebeto Walton MD Unavailable Gregoria Aviles MD Unavailable [phone] David Capone MD Primary Care Provider [phone] Em Bell MD Unavailable [phone] Encounter Details Date Type Department Care Team (Late st Contact Info) Description 07/05/2022 Lab Requisition [facility] [address] [place] [address] Lisa Michaud MD [address] [place] [address] Unspecified general medical examination Social [...] 1 Month) No 07/08/2022 7:53 AM EDT Elizbaeth Iverson, RAJ 6. Suicidal Behavior (Lifetime) No 07/08/2022 7:53 AM EDT Elizabeth Iverson RN documented as of this encounter Plan of Treatment Upcoming Encounters Date Type Department Care Team (Latest Contact Info) Description 10/25/2024 8:30 AM EDT Hospital Encounter [facility] 800 [place] [phone] Kyleigh Lyles MD [address] [facility] [address] [place] [phone] 10/25/2024 8:30 AM EDT - 10/25/2024 9:40 AM EDT Surgery [facility] 800 [place] [phone] Kyleigh Lyles MD [address] [facility] [address] [place] [phone] FLEXIBLE ESOPHAGOSCOPY WITH BALLOON DILATION 11/03/2024 11:30 AM EDT Office Visit [facility] 800 [facility], 2nd [place] [phone] Em Bell MD 800 [facility] 2nd [place] [address] 11/13/2024 3:00 PM EDT Office Visit [place] [facility] [address], 3rd [place] [address] Kyleigh Lyles MD [address] [address] 12/18/2024 10:00 AM EDT Office Visit [facility] 800 [facility] 2nd [place] [address] Bebeto Walton MD [address] [place] [phone] 01/30/2025 10:00 AM EST Appointment [facility] PET Scan 800 [place] [address] 01/30/2025 11:00 AM EST Appointment [facility] PET Scan 800 [place] [address] 01/30/2025 1:45 PM EST Office Visit [facility] 800 [facility] 2nd [place] [address] Bebeto Walton MD [address] [place] [address] Scheduled Procedures Name Priority Associated Diagnoses Date/Ti [...] Antibody Negative Negative 07/05/2022 3:25 PM EDT [facility] HIV 1 & 2 Antibody/Antigen Screen Non Reactive Non Reactive 07/05/2022 3:25 PM EDT [facility] Comment:Screening for HIV 1 & 2 antibodies, and P24 antigen is NONREACTIVE. No confirmatory testing is required. Blood Venous blood specimen / Unknown 07/05/2022 2:21 PM EDT 07/05/2022 2:21 PM EDT us Lisa Michaud MD LAB BLOOD ORDERABLES Final Resul t [facility] 800 [place] [address] documented in this encounter Visit Diagnoses Diagnosis Unspecified general medical examination Dysphagia, unspecified type documented in this encounter Care Teams Chili Pepper Grinder Relationship Specialty Start Date End Date Ana Dickson APRN PCP - General 07/19/20 11/29/22 [place] [address] [place] [address] PCP - General 11/30/22 Bebeto Walton MD 740 [facility] [address] [place] [address] Surgeon Otolaryngology 11/24/21 Gregoria Aviles MD 8 [place] [address] Referring Physician 11/02/22 Em Bell MD 800 [facility] Cancer [address] [address] Surgeon Otolaryngology 01/13/23 documented as of this encounter
--- NOTE | 2024-10-19 12:11 | XR_ITS ---
FINAL REPORT CLINICAL HISTORY: Nonspecific chest pain COMPARISON: 06/13/2024 FINDINGS: A portable view of the chest was obtained. Cardiac and mediastinal silhouettes are within normal limits. There is evidence of granulomatous disease. No focal infiltrate.. There is no pleural effusion or pneumothorax. IMPRESSION: No acute process on this portable exam. Reviewed, Interpreted and Dictated by Kate Mello MD Transcribed by Sangeetha Chaudhry Authenticated and [facility]
--- OUTSIDE RECORDS SUMMARY | 2024-10-19 12:11 | XMS_ITS | Encounter Summary ---
Author Organization Healthcare Address [address] [place] [address] Care Team Providers Care Gravel Wheeler Name Role Phone Bebeto Walton MD Unavailable Gregoria Aviles MD Unavailable [phone] David Capone MD Primary Care Provider [phone] Em Bell MD Unavailable [phone] Reason for Visit * Reason Comments Resource Navigation Encounter Details Date Type Department Care Team (Late st Contact Info) Description 10/02/2024 Social Work Psych Oncology 800 [place] [address] Madalyn Lama Social History Tobacco Use Types [...] place to sleep or slept in a long term (including now)? No 02/15/2023 CAGE ASSESSMENT Answer [...] drink first t pavan in the morning (EYE-CARDING DOUBLER) to steady your nerves or to get [...] Call Disease Status: Established Patient Clinic Location: [facility] Disease Type: Head & Neck Services Provided: Transportation Assistance Community Referrals: Medicaid Transportation Program Intervention Level: 3 Units (1 unit = 15 minutes): 2 Narrative: Phone call received from pt's sister [place] requesting transportation for pt's upcoming appts on 10/05 and 10/06. Rides arranged through [employer] for 730 at at 12:00 #[phone] and 10/06 at 9:00 to bring pt for appts. METALSMITH HELPER explained to pt's sister that as pt's appt is at [facility] on 10/06 that pt will be dropped off in front of [facility] and can take shuttle to appt. Pt's sister voiced understanding and appreciation for the assistance. No further needs identified. METALSMITH HELPER to remain available for any ongoing needs or support. Madalyn Lama, SPANISH MOSS PICKER, METALSMITH HELPER [facility] Psych-Oncology Services documented in this encounter Plan of Treatment Upcoming Encounters Date Type Department Care Team (Latest Contact Info) Description 10/25/2024 8:30 AM EDT Hospital Encounter [facility] 800 [place] [address] Kyleigh Lyles MD [address] [address] 10/25/2024 8:30 AM EDT - 10/25/2024 9:40 AM EDT Surgery [facility] 800 [place] [address] Kyleigh Lyles MD [address] [address] FLEXIBLE ESOPHAGOSCOPY WITH BALLOON DILATION 11/03/2024 11:30 AM EDT Office Visit [facility] 800 [facility] 2nd [place] [address] Em Bell MD 800 [facility] [address] [place] [address] 11/13/2024 3:00 PM EDT Office Visit [place] [facility] Ot[facility] [address], 3rd [place] [address] Kyleigh Lyles MD [address] [address] 12/18/2024 10:00 AM EDT Office Visit [facility] [address] [address] Bebeto Walton MD [address] [address] 01/30/2025 10:00 AM EST Appointment [facility] PET Scan [address] [place] [address] 01/30/2025 11:00 AM EST Appointment [facility] PET Scan 800 [place] [address] 01/30/2025 1:45 PM EST Office Visit [facility] [address] [address] Bebeto Walton MD [address] [phone] Scheduled Procedures Name Priority Associated Diagnoses Date/Ti [...] documented as of this encounter Care Teams Gravel Wheeler Relationship Specialty Start Date End Date David Capone MD 1551 [facility] 1551 [place] [address] PCP - General 11/30/22 Bebeto Walton MD [address] [place] [phone] Surgeon Otolaryngology 11/24/21 Gregoria Aviles MD 8 [place], [place] [phone] Referring Physician 11/02/22 Em Bell MD [address] [place] [address] [phone] Surgeon Otolaryngology 01/13/23 documented as of this encounter
--- OUTSIDE RECORDS SUMMARY | 2024-10-19 12:11 | XMS_ITS | Encounter Summary ---
Author Organization Healthcare Address [address] [place] [address] Care Team Providers Care Office Services Clerk Name Role Phone Bebeto Walton MD Unavailable Gregoria Aviles MD Unavailable [phone] David Capone MD Primary Care Provider [phone] Em Bell MD Unavailable [phone] Encounter Details Date Type Department Care [...] drink first t pavan in the morning (EYE-TAXATION CONSULTANT) to steady your nerves or to get rid of a hangover? 1 10/02/2022 CAGE Questionnaire Score 2 023 Utilities Answer Date Recorded In the past 12 months has th e [employer], gas, oil, or water company threatened to [...] 8:30 AM EDT Hospital Encounter [facility] [address] [place] [phone] Kyleigh Lyles MD [address] [address] 10/25/2024 8:30 AM EDT - 10/25/2024 9:40 AM EDT Surgery [facility] 800 [place] [phone] Kyleigh Lyles MD [address] [phone] FLEXIBLE ESOPHAGOSCOPY WITH BALLOON DILATION 11/03/2024 11:30 AM EDT Office Visit [facility] 800 [facility], 2nd [place] [address] Em Bell MD 800 [facility] [address] [place] [phone] 11/13/2024 3:00 PM EDT Office Visit [place] [facility] [address], 3rd [place] [address] Kyleigh Lyles MD [address] [address] 12/18/2024 10:00 AM EDT Office Visit [facility] 800 [facility], 2nd [place] [phone] Bebeto Walton MD [address] [address] 01/30/2025 10:00 AM EST Appointment [facility] PET Scan 800 [place] [address] 01/30/2025 11:00 AM EST Appointment [facility] PET Scan 800 [place] [phone] 01/30/2025 1:45 PM EST Office Visit [facility] 800 [facility], 2nd [place] [address] Bebeto Walton MD [address] [address] Scheduled Procedures Name Priority Associated [...] documented as of this encounter Care Teams Office Services Clerk Relationship Specialty Start Date End Date David Capone MD [facility] [place] [address] PCP - General 11/30/22 Bebeto Walton MD [address] [phone] Surgeon Otolaryngology 11/24/21 Gregoria Aviles MD 8 [place] [address] Referring Physician 11/02/22 Em Bell MD 800 [facility] [address] [phone] Surgeon Otolaryngology 01/13/23 documented as of this encounter
--- OUTSIDE RECORDS SUMMARY | 2024-10-19 12:11 | XMS_ITS | Encounter Summary ---
Author Organization Healthcare Address [address] [place] [address] Care Team Providers Care Director Of Manufacturing Operations Name Role Phone Bebeto Walton MD Unavailable Gregoria Aviles MD Unavailable [phone] David Capone MD Primary Care Provider [phone] Em Bell MD Unavailable [phone] Encounter Details Date Type Department Care [...] drink first t pavan in the morning (EYE-MANAGER FINE DINING) to steady your nerves or to get rid of a hangover? 1 10/02/2022 CAGE Questionnaire Score 2 023 Utilities Answer Date Recorded In the past 12 months has th e [employer], gas, oil, or water company threatened to [...] 8:30 AM EDT Hospital Encounter [facility] [address] [place] [phone] Kyleigh Lyles MD [address] [address] 10/25/2024 8:30 AM EDT - 10/25/2024 9:40 AM EDT Surgery [facility] 800 [place] [phone] Kyleigh Lyles MD [address] [phone] FLEXIBLE ESOPHAGOSCOPY WITH BALLOON DILATION 11/03/2024 11:30 AM EDT Office Visit [facility] 800 [facility], 2nd [place] [phone] Em Bell MD 800 [facility] [address] [place] [phone] 11/13/2024 3:00 PM EDT Office Visit [place] [facility] [address], 3rd [place] [address] Kyleigh Lyles MD [address] [address] 12/18/2024 10:00 AM EDT Office Visit [facility] 800 [facility], 2nd [place] [phone] Bebeto Walton MD [address] [address] 01/30/2025 10:00 AM EST Appointment [facility] PET Scan 800 [place] [address] 01/30/2025 11:00 AM EST Appointment [facility] PET Scan 800 [place] [phone] 01/30/2025 1:45 PM EST Office Visit [facility] 800 [facility], 2nd [place] [phone] Bebeto Walton MD [address] [address] Scheduled Procedures Name Priority Associated [...] documented as of this encounter Care Teams Director Of Manufacturing Operations Relationship Specialty Start Date End Date David Capone MD [facility] [place] [address] PCP - General 11/30/22 Bebeto Walton MD [address] [phone] Surgeon Otolaryngology 11/24/21 Gregoria Aviles MD 8 [place] [address] Referring Physician 11/02/22 Em Bell MD 800 [facility] Cancer [address] [phone] Surgeon Otolaryngology 01/13/23 documented as of this encounter
--- OUTSIDE RECORDS SUMMARY | 2024-10-19 12:11 | XMS_ITS | Encounter Summary ---
Author Organization Healthcare Address [address] [place] [address] Care Team Providers Care Firer Portable Boiler Name Role Phone Ana Dickson PACK[employer]ER Primary Care Provider [phone] Bebeto Walton MD Unavailable Gregoria Aviles MD Unavailable [phone] David Capone MD Primary Care Provider [phone] Em Bell MD Unavailable [phone] Encounter Details Date Type Department Care Team (Late st Contact Info) Description 01/25/2017 Orders Only External Location [address] [place] [phone] Provider, External Social History Tobacco Use Types [...] [facility] [address] [place] [phone] Kyleigh Lyles MD [address] [facility] [address] [place] [address] 10/25/2024 8:30 AM EDT - 10/25/2024 9:40 AM EDT Surgery [facility] [address] [place] [phone] Kyleigh Lyles MD [address] [address] FLEXIBLE ESOPHAGOSCOPY WITH BALLOON DILATION 11/03/2024 11:30 AM EDT Office Visit [facility] [address] [facility] [address] [place] [phone] Em Bell MD 800 [facility] [address] [place] [phone] 11/13/2024 3:00 PM EDT Office Visit [facility] [address] [place] [address] Kyleigh Lyles MD [address] [phone] 12/18/2024 10:00 AM EDT Office Visit [facility] [address] [phone] Bebeto Walton MD [address] [address] 01/30/2025 10:00 AM EST Appointment [facility] PET Scan [address] [place] [address] 01/30/2025 11:00 AM EST Appointment [facility] PET Scan [address] [place] [phone] 01/30/2025 1:45 PM EST Office Visit [facility] [address] [phone] Bebeto Walton MD [address] [place] [address] Scheduled Procedures Name Priority [...] on filedocumented in this encounter Care Teams Firer Portable Boiler Relationship Specialty Start Date End Date Ana Dickson APRN PCP - General 07/19/20 11/29/22 David Capone MD [address] [facility] [address] [place] [address] PCP - General 11/30/22 Bebeto Walton MD [id number] [place] [address] Surgeon Otolaryngology 11/24/21 Gregoria Aviles MD [address] [place] [address] Referring Physician 11/02/22 Em Bell MD 800 [facility] [address] [address] Surgeon Otolaryngology 01/13/23 documented as of this encounter
--- OUTSIDE RECORDS SUMMARY | 2024-10-19 12:11 | XMS_ITS | CCD ---
Author Name Interface, [id number] lit Address [address] [place] [address] Organization [facility] Address [address] [place] [address] Care Team Providers Care Hot Worker Name Role Phone Manuel WONG, Yury Chandler Unavailable Unavailable Reason for Visit Social History
[2024-10-19 12:18] LABS: Hematocrit 45.6 % (42.0-52.0); Hemoglobin 15.5 g/dL (14.1-18.0); Immature Granulocytes % 0.3 %; Mean Corpuscular HGB Conc 34.0 g/dL (31.8-35.4); Mean Corpuscular Hemoglobin 29.0 pg (27.0-31.2); Mean Corpuscular Volume 85.4 fl (80-94); Nucleated Red Blood Cells % 0 %; Platelet Count 445 K/mm3 (142-424); Red Blood Count 5.34 M/mm3 (4.60-6.20); Red Cell Distribution Width-SD 50.0 fL; White Blood Count 6.9 K/mm3 (4.8-10.8)
[2024-10-19 12:26] LABS: Alanine Aminotransferase 60 U/L (12-78); Albumin Level 4.8 g/dl (3.5-5.0); Albumin/Globulin Ratio 1.0 (1.1-1.8); Alkaline Phosphatase 103 U/L (38-126); Anion Gap 15.2 mEq/L (5-15); Aspartate Amino Transferase 116 U/L (17-59); Bilirubin,Total 0.6 mg/dl (0.2-1.3); Blood Urea Nitrogen 19 mg/dl (9-20); Calcium 8.7 mg/dl (8.4-10.2); Carbon Dioxide 28 mmol/L (22.0-30.0); Chloride 100 mmol/L (98-107); Creatinine Clearance Estimated 149 mL/min (50-200); Creatinine,Serum 0.70 mg/dl (0.66-1.25); Estimated Glomerular Filt Rate 116 ml/min (>60); GFR (African American) 141 ML/MIN (>60); Globulin 4.6 g/dL (1.3-3.2); Glucose 108 mg/dl (74-100); Potassium 4.2 mmoL/L (3.5-5.1); Sodium 139 mmol/L (136-145); Total Protein,Serum 9.4 g/dl (6.3-8.2)
[2024-10-19 12:30] VITALS: BP 125/91; RESP 14
[2024-10-19 12:50] LABS: Troponin I < 0.01 ng/ml (0.00-0.034)
[2024-10-19 12:55] VITALS: PULSE 58; O2SAT 89
--- NOTE | 2024-10-19 12:57 | PC.NURSE ---
DR. GUTIERREZ AT BEDSIDE
--- NOTE | 2024-10-19 13:04 | ED_ITS ---
Discharge Plan Disposition Patient Disposition: Left Against Medical Advice Prescriptions Prescriptions: No Action clonazepam 0.5 mg tablet 1 mg PO TID 30 Days Qty: 180 1RF methocarbamol 500 mg tablet 500 mg PO TID Qty: 90 0RF hydrocodone-acetaminophen 10-325 mg tablet 1 tab PO TID Qty: 90 0RF levothyroxine 137 mcg tablet 137 mcg PO AM furosemide [Lasix] 20 mg tablet 20 mg PO DAILY 7 Days Qty: 7 0RF doxycycline hyclate 100 mg tablet 100 mg PO BID 7 Days Qty: 14 0RF Referrals Follow up/Referrals: Tyler Hernandez APRN [Primary Care Provider, Medical] - See instructions Clinical Impressions Clinical Impression: Chest pain Print Language Print Language: Slovenian Discharge ED Provider: Shyam Healy General Adult HPI General Chief complaint: Chest Pain Stated complaint: CP Time Seen by Provider: 10/19/24 12:29 Mode of Arrival: Wheelchair Source of Information: Patient Description of Symptoms (Recalled from ER Triage Doc. by RN): PT BROUGHT FROM ROUTINE PAIN MANAGEMENT APPT FOR AMS, RIGHT SIDED CHEST PAIN THAT RADIATES TO ARM, NAUSEA AND STAFF REPORTS PT IS UNSTEADY ON HIS FEET. PT ALERT AND COOPERATIVE WITH CARE. History of Present Illness HPI narrative: Patient is a 59-year-old male present today with chest pain. States has been ongoing for 4 hours feels better but still has some discomfort. States he has some shortness of breath associated with this. He has a history of a laryngectomy and speaks to us through a voicebox so there is some language barrier. Denies any fevers or chills denies any abdominal pain. Related Data Home Medications ?Medication ?Instructions ?Recorded ?Confirmed levothyroxine 137 mcg tablet 137 mcg PO AM 01/27/24 Previous Rx's ?Medication ?Instructions ?Recorded doxycycline hyclate 100 mg tablet 100 mg PO BID 7 days #14 tabs 07/14/24 furosemide 20 mg tablet (Lasix) 20 mg PO DAILY 1 week #7 tabs 07/14/24 clonazepam 0.5 mg tablet 1 mg (2 x 0.5 mg) PO TID anx iety 08/30/24 30 days #180 tabs hydrocodone 10 mg-acetaminophen 1 tab PO TID #90 tabs 10/19/24 325 mg tablet methocarbamol 500 mg tablet 500 mg PO TID #90 tabs Allergies Allergy/AdvReac Type Severity Reaction Status Date / Time gabapentin Allergy Unknown Verified 08/30/24 14:20 allergy reaction tramadol Allergy Unknown Verified 08/30/24 14:20 allergy reaction PFSH [facility] Disclaimer: The information contained in this section may have been updated after the patient was seen, as this information can be updated by other users. Medical History Anxiety Alcoholism Hypothyroidism Larynx cancer Surgical History H/O abdominal surgery H/O thyroidectomy H/O laryngectomy Family History Sister Breast cancer Social History Smoking Status: Former smoker alcohol intake: former current occupational status: disabled Travel in the last 8 weeks?: None Have you lived/traveled outside [place] in past 30 days?: No Contact w/someone who lives/traveled outside US past 30 days?: No Exposure to someone with infectious disease in past 14 days?: No Do you have a fever (greater than 100.4 F or 38 C)?: No Have you tested positive for COVID-19?: No Exposed to someone with COVID-19 in past 14 days?: No Do you have a sore throat?: No Do you have a cough?: No Do you have any weakness?: No Do you have any diarrhea?: No Are you experiencing any unusual bleeding?: No Do you have any muscle aches/pain?: No Do you have any abdominal pain?: No Are you experiencing loss of taste or smell?: No Other Medical History Have you received the Flu Vaccine for this season: Yes Have you received the Pneumonia Vaccine: Yes ROS Obtained: Yes All systems reviewed & no additional complaints except as documented Physical Exam General General appearance: alert and in no apparent distress Chest Chest inspection: Present normal inspection; Absent symmetric chest wall rise Respiratory Respiratory exam: Present normal lung sounds bilaterally; Absent respiratory distress Cardiovascular Cardiovascular exam: Present regular rate and normal rhythm Abdominal Exam Abdominal exam: Present soft; Absent distention or tenderness Abdominal tenderness: Present severe (Well-healing midline incisional scar chronic) Neurological Exam Neurological exam: Present alert and oriented X3 Medical Decision Making Medical Records Screening: Per USPSTF and CDC recommendations, given the prevalence of disease in our region, it is our hospital?s policy to screen for HIV and viral Hepatitis for all patients aged 18 and over and those with ongoing risk factors. Ezra Inquiry Pt receiving controlled substance: No Vital Signs: 10/19/24 11:59 10/19/24 12:30 Temperature 98.8 F Temperature Source Oral Pulse Rate [Apical] 96 H Respiratory Rate 18 14 Blood Pressure 125/91 H Blood Pressure [Right Arm] 119/93 H Blood Pressure Mean [Right Arm] 101 Blood Pressure Source [Right Arm] Automatic Cuff Blood Pressure Position [Right Arm] Sitting 02 Sat by Pulse Oximetry 95 Oxygen Delivery Method Room Air Lab Data Lab Results 10/19/24 12:04: WBC 6.9, RBC 5.34, Hgb 15.5, Hct 45.6, MCV 85.4, MCH 29.0, MCHC 34.0, RDW 16.2, Plt Count 445 H, MPV 9.6, Neut % (Auto) 49.1, Lymph % (Auto) 38.4, [place] % (Auto) 9.4 H, Eos % (Auto) 1.2, Baso % (Auto) 1.6, Neut # (Auto) 3.4, Lymph # (Auto) 2.7, [place] # (Auto) 0.7, Eos # (Auto) 0.1, Baso # (Auto) 0.1, Sodium 139, Potassium 4.2, Chloride 100, Carbon Dioxide 28, Anion Gap 15.2 H, BUN 19, Creatinine 0.70, Estimated Creat Clear 149, Estimated GFR 116, Est GFR ( Amer) 141, Glucose 108 H, Calcium 8.7, Total Bilirubin 0.6, AST 116 H, ALT 60, Alkaline Phosphatase 103, Troponin I < 0.01, Total Protein 9.4 H D, Albumin 4.8, Globulin 4.6 H, Albumin/Globulin Ratio 1.0 L 10/19/24 12:04 10/19/24 12:04 Orders (Tests/Meds): ORDERS Category Date Time Status XR chest portable Stat Exams 10/19/24 12:11 Taken Complete Blood Count Auto Diff Stat Lab 10/19/24 12:04 Completed Comprehensive Metabolic Panel Stat Lab 10/19/24 12:04 Completed HIV Combo Stat Lab 10/19/24 12:04 Received Hepatitis C Ab Qual. W/ RFX Stat Lab 10/19/24 12:04 Received Troponin I Q3H Lab 10/19/24 15:15 Ordered Troponin I Q3H Lab 10/19/24 18:15 Ordered Troponin I Stat Lab 10/19/24 12:04 Completed Medical Decision Narrative: 59-year-old with history of laryngeal cancer status post laryngectomy speaking to me through a voicebox presents today with right-sided chest pain differential includes pneumonia COPD exacerbation cancer pulmonary embolism etc. After telling the patient that I wanted to do an extensive workup on him he told me that his symptoms have improved and that he would like to leave because his ride is here. He understands the risk of leaving including morbidity and mortality and signed out AMA no further workup was accomplished. Critical Care Critical Care Time Critical Care Time: No
[2024-10-19 13:07] VITALS: BP 125/91; PULSE 94; RESP 18; TEMP 36.9; O2SAT 97
--- NOTE | 2024-10-19 13:08 | PC.NURSE ---
pt is requesting to leave AMA.
[2024-10-19 13:31] LABS: Hepatitis C Ab Qual. W/ RFX NEGATIVE (Negative)
== END 2024-10-19 13:09 | disposition left against medical advice (07) ==
PROVIDERS: Emergency Provider Student in an Organized Health Care Education/Training Program; PCP Nurse Practitioner Family
DX: R07.9 Chest pain, unspecified (principal); R06.02 Shortness of breath; Z90.02 Acquired absence of larynx; Z85.21 Personal history of malignant neoplasm of larynx; Z87.891 Personal history of nicotine dependence
CPT/HCPCS: 71045; 80053; 84484; 85025; 86803; 87389; 93005; 99284